=== PATIENT | female | born 1940 ===

== ENCOUNTER 2017-08-04 12:35 | Inpatient (IN) | payer MEDICARE, MEDICAID ==
[2017-08-04 12:47] VITALS: BMI 20.1
[2017-08-04] MEDS ORDERED: Sodium Chloride 0.9% 1,000 ML IV STA ×2 (12:48→14:11)
--- NOTE | 2017-08-04 13:08 | ED PDOC ---
HPI: General Adult Time Seen by Provider: 08/04/17 12:42 Chief Complaint (Nursing): Weakness/Neurological Deficit Chief Complaint (Provider): Weakness History Per: Patient, Family History/Exam Limitations: no limitations Onset/Duration Of Symptoms: Days (3 days) Additional Complaint(s): Pt. son states pt. with weakness for 3 days or more. No chest pain, dyspnea. Decreased appetite. No headaches, dizziness. No dysuria. No fever, congestion , runny nose, cough. No back pain. No neck pain. No numbness, tingles, nausea , vomit, diarrhea. Past Medical History Reviewed: Nursing Documentation, Vital Signs Vital Signs: Last Vital Signs Temp 100.6 F H 08/04/17 13:35 Pulse 155 H 08/04/17 13:46 Resp 18 08/04/17 13:46 BP 151/75 H 08/04/17 13:46 Pulse Ox 100 08/04/17 13:46 - Medical History PMH: Dementia, Diabetes, HTN, Hypercholesterolemia - Surgical History Surgical History: No Surg Hx - Family History Family History: States: Unknown Family Hx - Living Arrangements Living Arrangements: With Family - Social History Alcohol: None Drugs: Denies - Home Medications Home Medications: Ambulatory Orders Medication Instructions Recorded Aspirin [Ecotrin] 81 mg PO DAILY 08/04/17 Carvedilol [Coreg] 3.125 mg PO BID 08/04/17 Rosuvastatin Calcium [Crestor] 20 mg PO DAILY 08/04/17 Valsartan [Diovan] 160 mg PO DAILY 08/04/17 - Allergies Allergies/Adverse Reactions: Allergies Allergy/AdvReac Type Severity Reaction Status Date / Time No Known Allergies Allergy Verified 08/04/17 12:46 Review of Systems ROS Statement: Except As Marked, All Systems Reviewed And Found Negative Neurological: Positive for: Weakness Physical Exam - Reviewed Nursing Documentation Reviewed: Yes Vital Signs Reviewed: Yes - Physical Exam Appears: Positive for: Uncomfortable Head Exam: Positive for: ATRAUMATIC, NORMAL INSPECTION, NORMOCEPHALIC Skin: Positive for: Normal Color, Warm, DRY Eye Exam: Positive for: EOMI, Normal appearance, PERRL ENT: Positive for: Normal ENT Inspection Neck: Positive for: Normal, Painless ROM, Supple Cardiovascular/Chest: Positive for: Tachycardia, Irregularly Irregular Respiratory: Positive for: CNT, Normal Breath Sounds Gastrointestinal/Abdominal: Positive for: Normal Exam, Bowel Sounds, Soft. Negative for: Tenderness Back: Positive for: Normal Inspection. Negative for: L CVA Tenderness, R CVA Tenderness Extremity: Positive for: Normal ROM. Negative for: Tenderness, Pedal Edema Neurologic/Psych: Positive for: Alert, editor producer II-XII, Oriented. Negative for: Motor/Sensory Deficits - Laboratory Results Result Diagrams: 08/04/17 12:55 08/04/17 12:55 Interpretation Of Abn Labs: 44 bun, 0.4090 trop, wbc elevation, ast and alt elevation - ECG ECG: Positive for: Interpreted By Me, Viewed By Me Interpretation Of Abn EKG: EKG 1: afib 163. EKG 2: afib rate controlled 123 O2 Sat by Pulse Oximetry: 97 Pulse Ox Interpretation: Normal - Radiology X-Ray: Read By Radiologist X-Ray Interpretation: No Acute Disease - CT Scan/US ct Other Rad Studies (CT/US): Read By Radiologist Other Rad Interpretation: no acute - Progress ED Course And Treament: 1300: Cardizem 10mg given for afib and rate improved. Will put on a drip. 1450: Spoke with Dr. Beck. Will admit. Wants Dr. Velázquez for cards. Pt. stable. AAOx3. 1455: Spoke with Dr. Velázquez. Agrees with no heparin as INR is 1.7. Will give ASA. Spoke with ICU who will see pt. and admit. - Critical Care Total Time (In Min): 60 Documented Critical Care: Time excludes all time spent performint seperately billable procedures Disposition - Clinical Impression Clinical Impression: Afib, Acute weakness, NSTEMI (non-ST elevated myocardial infarction), Dehydration - Patient ED Disposition Is Patient to be Admitted: Yes Counseled Patient/Family Regarding: Studies Performed, Diagnosis - Disposition Disposition Time: 15:29 Condition: FAIR - Pt Status Changed To: Hospital Disposition Of: Inpatient - Admit Certification Admit to Inpatient:: After my assessment, the patient will require hospitalization for at least two midnights. This is because of the severity of symptoms shown, intensity of services needed, and/or the medical risk in this patient being treated as an outpatient. - POA Present On Arrival: None
[2017-08-04 13:10] LABS: BASO # 0.1 K/uL (0.0-0.2); BASO % 0.4 % (0.0-2.0); HEMOGLOBIN 15.4 g/dL (12.0-16.0); LYMPH # 0.5 K/uL (1.0-4.3); LYMPH % 3.7 % (20.0-40.0); MEAN CELL VOLUME 98.4 fl (81.0-99.0); MEAN CORPUSCULAR HEMOGLOBIN 31.5 pg (27.0-31.0); MEAN PLATELET VOLUME 9.6 fl (7.2-11.7); MONO # 0.4 K/uL (0.0-0.8); MONO % 2.7 % (0.0-10.0); NEUT # 13.4 K/uL (1.8-7.0); NEUT % 93.2 % (50.0-75.0); NRBC % 0.4 % (0.0-0.0); PLATELET COUNT 135 K/uL (130-400); RBC 4.89 Mil/uL (3.80-5.20); RED CELL DISTRIBUTION WIDTH 15.3 % (11.5-14.5); WHITE BLOOD COUNT 14.3 K/uL (4.8-10.8)
[2017-08-04] MEDS ORDERED: DILTIAZEM IV ONE (13:15)
[2017-08-04 13:19] LABS: ALB/GLOB RATIO 1.2 (1.0-2.1); ALBUMIN 3.6 g/dL (3.5-5.0); ALT/SGPT 238 U/L (9-52); AST/SGOT 128 U/L (14-36); BLOOD UREA NITROGEN 44 mg/dl (7-17); GFR AFRICAN-AMERICAN > 60; GFR NON-AFRICAN AMERICAN > 60
--- NOTE | 2017-08-04 13:42 | RAD ---
HISTORY: weak COMPARISON: Comparison chest 02/20/2017 FINDINGS: LUNGS: Suspect minor bibasilar atelectasis PLEURA: No significant pleural effusion identified, no pneumothorax apparent. CARDIOVASCULAR: Heart appears mildly enlarged. Aorta ectatic and uncoiled. OSSEOUS STRUCTURES: Moderate dextroscoliosis apex at the mid-lower thoracic region. VISUALIZED UPPER ABDOMEN: Normal. OTHER FINDINGS: None. IMPRESSION: Suspect minor bibasilar atelectasis.
[2017-08-04 13:47] LABS: ANISOCYTOSIS SLIGHT; LYMPHOCYTE 8 % (20-50); NEUTROPHIL 92 % (42-75); PLATELET ESTIMATE NORMAL (NORMAL); TOTAL CELLS COUNTED 100
[2017-08-04 13:48] LABS: HYPOCHROMIC SLIGHT; POIKILOCYTOSIS SLIGHT; STOMATOCYTES SLIGHT; TARGET CELLS SLIGHT
[2017-08-04 13:49] LABS: OVALOCYTES SLIGHT; TEARDROP CELLS SLIGHT
--- NOTE | 2017-08-04 14:10 | CT ---
PROCEDURE: CT scan of the brain dated 08/04/2017 HISTORY: Headache COMPARISON: Comparison made with prior CT scan brain dated 06/01/2014. TECHNIQUE: Axial computed tomography images were obtained through the head/brain without intravenous contrast. Radiation dose: Total exam DLP = 89.65 mGy-cm. This CT exam was performed using one or more of the following dose reduction techniques: Automated exposure control, adjustment of the mA and/or kV according to patient size, and/or use of iterative reconstruction technique. FINDINGS: HEMORRHAGE: No intracranial hemorrhage. BRAIN: Moderate diffuse/confluent chronic periventricular white matter ischemic changes seen extending peripherally into the deep and subcortical white matter both cerebral hemispheres. There is also some extension these changes into the white matter tracts of both basal nuclei. , additionally, there are also more discrete scattered bilateral chronic appearing basal nuclei and possibly brainstem lacunar type infarcts. Probable dilated perivascular space right inferior basal ganglia Moderate generalized volume loss Mild vascular calcifications are present. VENTRICLES: No obstructive hydrocephalus. CALVARIUM: Unremarkable. PARANASAL SINUSES: Frontal sinus is mildly underpneumatized/mildly hypoplastic unchanged. The remaining visualized paranasal sinuses well-developed and currently well-aerated. No fluid levels seen to suggest acute sinusitis. . Minimal mucosal thickening seen within the sphenoid sinus. MASTOID AIR CELLS: Unremarkable as visualized. No inflammatory changes. OTHER FINDINGS: Changes of bilateral cataract surgery again noted. IMPRESSION: No acute intracranial hemorrhage. Chronic white matter and basal nuclei ischemic changes. Moderate generalized volume loss.
[2017-08-04] MEDS ORDERED: Sod Polystyrene Sulf 15 gm/60 ml Susp PO STA (14:13)
[2017-08-04 14:27] LABS: INR 1.7 (0.9-1.2); PARTIAL THROMBOPLASTIN TIME 37.5 Seconds (25.6-37.1); PROTHROMBIN TIME 18.5 Seconds (9.8-13.1)
--- NOTE | 2017-08-04 15:50 | CP.PCM.CON ---
History of Present Illness - History of Present Illness History of Present Illness: Pt was seen in ER with son gave all the history, pt has h/o dementia and does not speak [place]. She was brought to ER as patient who has been quite active and ambulatory otherwise has been feeling weak and home bounds for last two days. No other complain, she had no fever, SOB, pain, vomiting . In ER she found to be in rapid afib and started on Cardizem drip. Her TNI was slightly high . Dr Santacruz, pilot fuel engineer was consulted and he agreed with cardizem drip but to hold on anticoagulation. Review of Systems - Review of Systems Systems not reviewed;Unavailable: Dementia - Constitutional Constitutional: Anorexia, Weakness - EENT Eyes: As Per HPI Ears: As Per HPI - Breasts Breasts: As Per HPI - Cardiovascular Cardiovascular: As Per HPI - Respiratory Respiratory: As Per HPI - Gastrointestinal Gastrointestinal: As Per HPI Past Patient History - Past Medical History & Family History Past Medical History?: Yes - Past Social History Smoking Status: Never Smoked Chewing Tobacco Use: No Cigar Use: No Alcohol: None Drugs: Denies - CARDIAC Hx Hypercholesterolemia: Yes Hx Hypertension: Yes - NEUROLOGICAL Hx Dementia: Yes - PSYCHIATRIC Hx Substance Use: No - SURGICAL HISTORY Hx Surgeries: No - ANESTHESIA Hx Anesthesia: No Meds Allergies/Adverse Reactions: Allergies Allergy/AdvReac Type Severity Reaction Status Date / Time No Known Allergies Allergy Verified 08/04/17 12:46 - Medications Medications: Current Medications Diltiazem HCl 100 mg/ Sodium (Chloride) 100 mls @ 5 mls/hr IV .Q20H ONE; 5 MG/ HR PRN Reason: Protocol Stop: 08/05/17 09:59 Last Admin: 08/04/17 13:46 Dose: 5 mg/hr, 5 mls/hr Physical Exam - Head Exam Head Exam: ATRAUMATIC - Eye Exam Pupil Exam: PERRL - ENT Exam ENT Exam: Normal Exam - Neck Exam Neck exam: Positive for: Full Rom - Respiratory Exam Respiratory Exam: NORMAL BREATHING PATTERN - Cardiovascular Exam Cardiovascular Exam: Irregular Rhythm - GI/Abdominal Exam GI & Abdominal Exam: Soft Results - Vital Signs Recent Vital Signs: Last Vital Signs Temp 97.5 F L 08/04/17 14:21 Pulse 121 H 08/04/17 14:21 Resp 18 08/04/17 13:46 BP 151/75 H 08/04/17 13:46 Pulse Ox 97 08/04/17 15:30 - Labs Result Diagrams: 08/04/17 12:55 08/04/17 12:55 Labs: Laboratory Results - last 24 hr 08/04/17 08/04/17 08/04/17 12:53 12:55 12:55 WBC 14.3 H RBC 4.89 Hgb 15.4 Hct 48.1 H MCV 98.4 MCH 31.5 H MCHC 32.0 L RDW 15.3 H Plt Count 135 MPV 9.6 Neut % (Auto) 93.2 H Lymph % (Auto) 3.7 L [place] % (Auto) 2.7 Eos % (Auto) 0.0 Baso % (Auto) 0.4 Neut # (Auto) 13.4 H Lymph # (Auto) 0.5 L [place] # (Auto) 0.4 Eos # (Auto) 0.0 Baso # (Auto) 0.1 Neutrophils % (Manual) 92 H Lymphocytes % (Manual) 8 L Monocytes % (Manual) TEST NOT PERFORMED Platelet Estimate Normal Hypochromasia (manual) Slight Poikilocytosis (manual Slight Anisocytosis (manual) Slight Target Cells Slight Tear Drop Cells Slight Ovalocytes Slight Stomatocytes Slight PT INR APTT Sodium 133 Potassium 5.4 H Chloride 93 L Carbon Dioxide 22 Anion Gap 23 H BUN 44 H Creatinine 0.7 Est GFR ( Amer) > 60 Est GFR (Non-Af Amer) > 60 POC Glucose (mg/dL) 142 H Random Glucose 148 H Calcium 9.0 Total Bilirubin 3.1 H AST 128 H ALT 238 H Alkaline Phosphatase 232 H Troponin I 0.4090 H* Total Protein 6.6 Albumin 3.6 Globulin 3.0 Albumin/Globulin Ratio 1.2 08/04/17 12:55 WBC RBC Hgb Hct MCV MCH MCHC RDW Plt Count MPV Neut % (Auto) Lymph % (Auto) [place] % (Auto) Eos % (Auto) Baso % (Auto) Neut # (Auto) Lymph # (Auto) [place] # (Auto) Eos # (Auto) Baso # (Auto) Neutrophils % (Manual) Lymphocytes % (Manual) Monocytes % (Manual) Platelet Estimate Hypochromasia (manual) Poikilocytosis (manual Anisocytosis (manual) Target Cells Tear Drop Cells Ovalocytes Stomatocytes PT 18.5 H INR 1.7 H APTT 37.5 H Sodium Potassium Chloride Carbon Dioxide Anion Gap BUN Creatinine Est GFR ( Amer) Est GFR (Non-Af Amer) POC Glucose (mg/dL) Random Glucose Calcium Total Bilirubin AST ALT Alkaline Phosphatase Troponin I Total Protein Albumin Globulin Albumin/Globulin Ratio Assessment & Plan - Assessment and Plan (Free Text) Assessment: ACS: NSTEMI Rapid A fib Dehydration BRUNO; pre-renal Dementia h/o HTN Plan: Admit to ICU Cardizem infusion start at 5 mg /h SCDs IVF NS at 75 cc/h serial card enzymes ASA 325 mg daily Card consult 2 Gm Na diet
--- NOTE | 2017-08-04 16:18 | US ---
HISTORY: elevated bili COMPARISON: None. TECHNIQUE: Sonographic evaluation of the right upper quadrant of the abdomen. FINDINGS: LIVER: Liver exhibits normal size measuring 15.6 cm in CC dimension. Liver demonstrates smooth contour and normal echotexture. No obvious hepatic masses or collections seen on this images presented. Mild central intrahepatic biliary ductal dilatation. GALLBLADDER: Cholecystectomy COMMON BILE DUCT: Common bile duct dilated at 1.1 mm. No stones. No dilatation. PANCREAS: Unremarkable as visualized. No mass. No ductal dilatation. RIGHT KIDNEY: Measures 12.0 x 4.4 x 4.4 cm in length. Normal echogenicity. No calculus, solid mass, or hydronephrosis. . There is an upper pole cyst measuring 4.5 x 4.2 x 5.3 cm. AORTA: No aneurysmal dilatation. IVC: Unremarkable. OTHER FINDINGS: None . IMPRESSION: Cholecystectomy with dilatation of the common bile duct as above. Large upper pole cyst right kidney.
[2017-08-04] MEDS: Sodium Chloride 0.9% 1,000 ML IV SCH (17:00)
--- NOTE | 2017-08-04 22:49 | CP.PCM.HP ---
History of Present Illness - History of Present Illness History of Present Illness: This is a 77 y/o female with hx of dementia HTN and hyperlipidemia was admitted for progressive body weakness and noted to have rapid atrial fibrillation. She was also noted to have elevated troponin. There was no chest pain or SOB. She has been on medications for HTN and hyperlipidemia and dementia and stays mostly at home. She is very high risk for fall due to her dementia. Present on Admission - Present on Admission Any Indicators Present on Admission: No History of DVT/PE: No History of Uncontrolled Diabetes: No Urinary Catheter: No Decubitus Ulcer Present: No Past Patient History - Past Medical History & Family History Past Medical History?: Yes - Past Social History Smoking Status: Never Smoked - CARDIAC Hx Cardiac Disorders: Yes Hx Hypercholesterolemia: Yes Hx Hypertension: Yes - PULMONARY Hx Respiratory Disorders: No - NEUROLOGICAL Hx Neurological Disorder: Yes Hx Dementia: Yes - HEENT Hx HEENT Problems: No - RENAL Hx Chronic Kidney Disease: No - ENDOCRINE/METABOLIC Hx Endocrine Disorders: Yes Hx Diabetes Mellitus Type 2: Yes - HEMATOLOGICAL/ONCOLOGICAL Hx Blood Disorders: Yes Hx Blood Transfusions: Yes (childhood) - INTEGUMENTARY Hx Dermatological Problems: No - MUSCULOSKELETAL/RHEUMATOLOGICAL Hx Musculoskeletal Disorders: Yes Hx Falls: Yes - GASTROINTESTINAL Hx Gastrointestinal Disorders: No - GENITOURINARY/GYNECOLOGICAL Hx Genitourinary Disorders: No - PSYCHIATRIC Hx Psychophysiologic Disorder: No Hx Substance Use: No - SURGICAL HISTORY Hx Surgeries: Yes Other/Comment: childhoood surgery/pt cannot remember - ANESTHESIA Hx Anesthesia: Yes Hx Anesthesia Reactions: No Meds Allergies/Adverse Reactions: Allergies Allergy/AdvReac Type Severity Reaction Status Date / Time No Known Allergies Allergy Verified 08/04/17 12:46 Physical Exam - Head Exam Head Exam: NORMAL INSPECTION - Eye Exam Eye Exam: Normal appearance - ENT Exam ENT Exam: Mucous Membranes Moist - Respiratory Exam Respiratory Exam: Clear to Auscultation Bilateral - Cardiovascular Exam Cardiovascular Exam: Irregular Rhythm - GI/Abdominal Exam GI & Abdominal Exam: Normal Bowel Sounds - Neurological Exam Neurological exam: Altered, CN II-XII Intact - Psychiatric Exam Psychiatric exam: Anxious Results - Vital Signs Recent Vital Signs: Last Vital Signs Temp 97.2 F L 08/04/17 20:00 Pulse 111 H 08/04/17 21:00 Resp 18 08/04/17 21:00 BP 122/62 08/04/17 21:00 Pulse Ox 98 08/04/17 21:00 - Labs Result Diagrams: 08/05/17 08:37 08/05/17 08:37 Labs: Laboratory Results - last 24 hr 08/04/17 08/04/17 08/04/17 12:53 12:55 12:55 WBC 14.3 H RBC 4.89 Hgb 15.4 Hct 48.1 H MCV 98.4 MCH 31.5 H MCHC 32.0 L RDW 15.3 H Plt Count 135 MPV 9.6 Neut % (Auto) 93.2 H Lymph % (Auto) 3.7 L [place] % (Auto) 2.7 Eos % (Auto) 0.0 Baso % (Auto) 0.4 Neut # (Auto) 13.4 H Lymph # (Auto) 0.5 L [place] # (Auto) 0.4 Eos # (Auto) 0.0 Baso # (Auto) 0.1 Neutrophils % (Manual) 92 H Lymphocytes % (Manual) 8 L Monocytes % (Manual) TEST NOT PERFORMED Platelet Estimate Normal Hypochromasia (manual) Slight Poikilocytosis (manual Slight Anisocytosis (manual) Slight Target Cells Slight Tear Drop Cells Slight Ovalocytes Slight Stomatocytes Slight PT INR APTT Sodium 133 Potassium 5.4 H Chloride 93 L Carbon Dioxide 22 Anion Gap 23 H BUN 44 H Creatinine 0.7 Est GFR ( Amer) > 60 Est GFR (Non-Af Amer) > 60 POC Glucose (mg/dL) 142 H Random Glucose 148 H Calcium 9.0 Total Bilirubin 3.1 H AST 128 H ALT 238 H Alkaline Phosphatase 232 H Troponin I 0.4090 H* Total Protein 6.6 Albumin 3.6 Globulin 3.0 Albumin/Globulin Ratio 1.2 08/04/17 08/04/17 08/04/17 12:55 17:04 21:06 WBC RBC Hgb Hct MCV MCH MCHC RDW Plt Count MPV Neut % (Auto) Lymph % (Auto) [place] % (Auto) Eos % (Auto) Baso % (Auto) Neut # (Auto) Lymph # (Auto) [place] # (Auto) Eos # (Auto) Baso # (Auto) Neutrophils % (Manual) Lymphocytes % (Manual) Monocytes % (Manual) Platelet Estimate Hypochromasia (manual) Poikilocytosis (manual Anisocytosis (manual) Target Cells Tear Drop Cells Ovalocytes Stomatocytes PT 18.5 H INR 1.7 H APTT 37.5 H Sodium Potassium Chloride Carbon Dioxide Anion Gap BUN Creatinine Est GFR ( Amer) Est GFR (Non-Af Amer) POC Glucose (mg/dL) 198 H Random Glucose Calcium Total Bilirubin AST ALT Alkaline Phosphatase Troponin I 0.2720 H* Total Protein Albumin Globulin Albumin/Globulin Ratio 08/04/17 21:09 WBC RBC Hgb Hct MCV MCH MCHC RDW Plt Count MPV Neut % (Auto) Lymph % (Auto) [place] % (Auto) Eos % (Auto) Baso % (Auto) Neut # (Auto) Lymph # (Auto) [place] # (Auto) Eos # (Auto) Baso # (Auto) Neutrophils % (Manual) Lymphocytes % (Manual) Monocytes % (Manual) Platelet Estimate Hypochromasia (manual) Poikilocytosis (manual Anisocytosis (manual) Target Cells Tear Drop Cells Ovalocytes Stomatocytes PT INR APTT Sodium Potassium Chloride Carbon Dioxide Anion Gap BUN Creatinine Est GFR ( Amer) Est GFR (Non-Af Amer) POC Glucose (mg/dL) 147 H Random Glucose Calcium Total Bilirubin AST ALT Alkaline Phosphatase Troponin I Total Protein Albumin Globulin Albumin/Globulin Ratio Assessment & Plan (1) Atrial fibrillation with rapid ventricular response Status: Acute (2) NSTEMI (non-ST elevated myocardial infarction) Status: Acute (3) Dementia Status: Acute (4) Hyperglycemia Status: Acute (5) Abnormal liver enzymes Status: Acute - Assessment and Plan (Free Text) Plan: Monitor labs check US of the liver gb check CA 19 9 afp A1c cont meds follow up with cardiology troponin
[2017-08-04] MEDS: Insulin Regular 100 units/ml SC SCH (22:53)
[2017-08-05] MEDS: Sodium Chloride 0.9% 1,000 ML IV SCH ×2 (05:55→21:00)
[2017-08-05] MEDS: Insulin Regular 100 units/ml SC SCH ×4 (06:30→22:03)
[2017-08-05 08:51] LABS: BLOOD UREA NITROGEN 27 mg/dl (7-17); CALCIUM 8.1 mg/dL (8.4-10.2); GFR AFRICAN-AMERICAN > 60; GFR NON-AFRICAN AMERICAN > 60
[2017-08-05 08:53] LABS: HEMOGLOBIN 13.7 g/dL (12.0-16.0); MEAN CELL VOLUME 98.7 fl (81.0-99.0); MEAN CORPUSCULAR HEMOGLOBIN 31.2 pg (27.0-31.0); MEAN CORPUSCULAR HGB CONC 31.6 g/dL (33.0-37.0); RBC 4.4 Mil/uL (3.80-5.20); RED CELL DISTRIBUTION WIDTH 15.3 % (11.5-14.5)
--- NOTE | 2017-08-05 09:08 | CP.CCUPN ---
CCU Subjective - Physician Review Events Since Last Encounter (Free Text): 08/05/17 16:16 The patient was Seen/interviewed and examined by me at the bedside during ICU round, Medical records reviewed and Management issues were discussed and formulated with the house staff. Events reviewed 77 Years old Female with PMHx of Diabetes, HTN, Hypercholesterolemia and dementia She was brought to ER as patient who has been quite active and ambulatory otherwise has been feeling weak and home bounds for last two days. In ER she found to be in rapid A-Fib and started on Cardizem drip. Also Trop was slightly elevated, cardiology was consulted and he agreed with cardizem drip but to hold on anticoagulation. This morning she feels well and is hemodynamically stable, denies any chest pain or SOB. Clinically improving Awake, follows commands This morning labs revealed improved renal function BUN/Cr down 27/0.4 CCU Objective - Vital Signs / Intake & Output Vital Signs (Last 4 hours): Vital Signs Temp Pulse Resp BP Pulse Ox 08/05/17 08:00 97.3 F L 99 H 17 119/75 97 08/05/17 06:00 89 12 116/77 98 Intake and Output (Last 8hrs): Intake & Output 08/04/17 08/05/17 08/05/17 22:59 06:59 14:59 Intake Total 495 860 Output Total 450 Balance 495 410 Weight 100 lb Intake: IV 425 760 Intake, Piggyback 20 Oral 50 100 Output: Stool 250 Urine/Stool Mix 200 Other: # Voids Urine, Voided 1 2 25 # Bowel Movements 1 1 - Physical Exam Physical Exam Limitations: Positive for: Altered Mental Status, Clinical Condition Head: Positive for: Atraumatic, Normocephalic. Negative for: Tenderness, Contusion, Swelling, Ecchymosis, Abrasion, Laceration, Other Pupils: Positive for: PERRL Extroacular Muscles: Positive for: EOMI Conjunctiva: Positive for: Normal. Negative for: Injected, Icteric, Other Pharnyx: Positive for: Normal Nose (External): Positive for: Atraumatic Nose (Internal): Positive for: Normal Inspection Neck: Positive for: Normal Range of Motion, Trachea Midline. Negative for: Meningeal Signs, MIDLINE TENDERNESS, Paraspinal Tenderness, JVD, Lymphadenopathy , Bruit, Other Respiratory/Chest: Positive for: Clear to Auscultation, Good Air Exchange. Negative for: Respiratory Distress, Accessory Muscle Use, Wheezes, Decreased Breath Sounds Cardiovascular: Positive for: Regular Rate and Rhythm, Normal S1, S2, Peripheal Pulses Present. Negative for: Murmurs, Irregular Rhythm, Tachycardic, Bradycardic Abdomen: Positive for: Normal Bowel Sounds. Negative for: Tenderness, Distention Back: Positive for: Normal Inspection. Negative for: CVA Tenderness Upper Extremity: Positive for: Normal Inspection. Negative for: Cyanosis, Edema Lower Extremity: Positive for: Normal Inspection. Negative for: Edema, CALF TENDERNESS - Medications Active Medications: Active Medications Generic Name Dose Route Start Last Admin Trade Name Freq PRN Reason Stop Dose Admin Aspirin 325 mg 08/05/17 09:00 Aspirin PO DAILY [facility] Atorvastatin Calcium 20 mg 08/05/17 09:00 Lipitor PO DAILY [facility] Carvedilol 12.5 mg 08/04/17 21:00 08/04/17 20:48 Coreg PO 12.5 mg Q12 [facility] Administration Diltiazem HCl 100 mg/ Sodium 100 mls @ 5 mls/hr 08/04/17 14:00 08/05/17 01:54 Chloride IV 08/05/17 09:59 7.5 mg/hr .Q20H ONE 7.5 mls/hr Protocol Administration 5 MG/HR Sodium Chloride 1,000 mls @ 75 mls/hr 08/04/17 17:15 08/05/17 05:55 Sodium Chloride 0.9% IV 08/05/17 17:06 75 mls/hr .[id number] [facility] Administration Insulin Human Regular 0 units 08/04/17 22:00 08/05/17 06:30 Humulin R SC Not Given ACHS [facility] Protocol - Patient Studies Lab Studies: Lab Studies 08/05/17 08/05/17 08/05/17 Range/Units 08:37 08:37 05:55 WBC (4.8-10.8) K/uL RBC 4.40 (3.80-5.20) Mil/uL Hgb 13.7 (12.0-16.0) g/dL Hct 43.4 (34.0-47.0) % MCV 98.7 (81.0-99.0) fl MCH 31.2 H (27.0-31.0) pg MCHC 31.6 L (33.0-37.0) g/dL RDW 15.3 H (11.5-14.5) % Plt Count 91 L D (130-400) K/uL MPV (7.2-11.7) fl Neut % (Auto) (50.0-75.0) % Lymph % (Auto) (20.0-40.0) % [place] % (Auto) (0.0-10.0) % Eos % (Auto) (0.0-4.0) % Baso % (Auto) (0.0-2.0) % Neut # (Auto) (1.8-7.0) K/uL Lymph # (Auto) (1.0-4.3) K/uL [place] # (Auto) (0.0-0.8) K/uL Eos # (Auto) (0.0-0.7) K/uL Baso # (Auto) (0.0-0.2) K/uL Neutrophils % (Manual) (42-75) % Lymphocytes % (Manual) (20-50) % Monocytes % (Manual) Platelet Estimate (NORMAL) Hypochromasia (manual) Poikilocytosis (manual Anisocytosis (manual) Target Cells Tear Drop Cells Ovalocytes Stomatocytes PT (9.8-13.1) Seconds INR (0.9-1.2) APTT (25.6-37.1) Seconds Sodium 134 (132-148) mmol/l Potassium 3.8 (3.6-5.0) MMOL/L Chloride 101 (98-107) mmol/L Carbon Dioxide 21 L (22-30) mmol/L Anion Gap 16 (10-20) BUN 27 H (7-17) mg/dl Creatinine 0.4 L (0.7-1.2) mg/dl Est GFR ( Amer) > 60 Est GFR (Non-Af Amer) > 60 POC Glucose (mg/dL) 131 H (65-110) mg/dL Random Glucose 130 H (65-105) mg/dL Calcium 8.1 L (8.4-10.2) mg/dL Total Bilirubin (0.2-1.3) mg/dl AST (14-36) U/L ALT (9-52) U/L Alkaline Phosphatase (38-126) U/L Troponin I (0.00-0.120) ng/mL Total Protein (6.3-8.2) G/DL Albumin (3.5-5.0) g/dL Globulin (2.2-3.9) gm/dL Albumin/Globulin Ratio (1.0-2.1) 08/05/17 08/04/17 08/04/17 Range/Units 04:25 21:09 21:06 WBC (4.8-10.8) K/uL RBC (3.80-5.20) Mil/uL Hgb (12.0-16.0) g/dL Hct (34.0-47.0) % MCV (81.0-99.0) fl MCH (27.0-31.0) pg MCHC (33.0-37.0) g/dL RDW (11.5-14.5) % Plt Count (130-400) K/uL MPV (7.2-11.7) fl Neut % (Auto) (50.0-75.0) % Lymph % (Auto) (20.0-40.0) % [place] % (Auto) (0.0-10.0) % Eos % (Auto) (0.0-4.0) % Baso % (Auto) (0.0-2.0) % Neut # (Auto) (1.8-7.0) K/uL Lymph # (Auto) (1.0-4.3) K/uL [place] # (Auto) (0.0-0.8) K/uL Eos # (Auto) (0.0-0.7) K/uL Baso # (Auto) (0.0-0.2) K/uL Neutrophils % (Manual) (42-75) % Lymphocytes % (Manual) (20-50) % Monocytes % (Manual) Platelet Estimate (NORMAL) Hypochromasia (manual) Poikilocytosis (manual Anisocytosis (manual) Target Cells Tear Drop Cells Ovalocytes Stomatocytes PT (9.8-13.1) Seconds INR (0.9-1.2) APTT (25.6-37.1) Seconds Sodium (132-148) mmol/l Potassium (3.6-5.0) MMOL/L Chloride (98-107) mmol/L Carbon Dioxide (22-30) mmol/L Anion Gap (10-20) BUN (7-17) mg/dl Creatinine (0.7-1.2) mg/dl Est GFR ( Amer) Est GFR (Non-Af Amer) POC Glucose (mg/dL) 147 H (65-110) mg/dL Random Glucose (65-105) mg/dL Calcium (8.4-10.2) mg/dL Total Bilirubin (0.2-1.3) mg/dl AST (14-36) U/L ALT (9-52) U/L Alkaline Phosphatase (38-126) U/L Troponin I 0.2410 H* 0.2720 H* (0.00-0.120) ng/mL Total Protein (6.3-8.2) G/DL Albumin (3.5-5.0) g/dL Globulin (2.2-3.9) gm/dL Albumin/Globulin Ratio (1.0-2.1) 08/04/17 08/04/17 08/04/17 Range/Units 17:04 12:55 12:55 WBC (4.8-10.8) K/uL RBC (3.80-5.20) Mil/uL Hgb (12.0-16.0) g/dL Hct (34.0-47.0) % MCV (81.0-99.0) fl MCH (27.0-31.0) pg MCHC (33.0-37.0) g/dL RDW (11.5-14.5) % Plt Count (130-400) K/uL MPV (7.2-11.7) fl Neut % (Auto) (50.0-75.0) % Lymph % (Auto) (20.0-40.0) % [place] % (Auto) (0.0-10.0) % Eos % (Auto) (0.0-4.0) % Baso % (Auto) (0.0-2.0) % Neut # (Auto) (1.8-7.0) K/uL Lymph # (Auto) (1.0-4.3) K/uL [place] # (Auto) (0.0-0.8) K/uL Eos # (Auto) (0.0-0.7) K/uL Baso # (Auto) (0.0-0.2) K/uL Neutrophils % (Manual) (42-75) % Lymphocytes % (Manual) (20-50) % Monocytes % (Manual) Platelet Estimate (NORMAL) Hypochromasia (manual) Poikilocytosis (manual Anisocytosis (manual) Target Cells Tear Drop Cells Ovalocytes Stomatocytes PT 18.5 H (9.8-13.1) Seconds INR 1.7 H (0.9-1.2) APTT 37.5 H (25.6-37.1) Seconds Sodium 133 (132-148) mmol/l Potassium 5.4 H (3.6-5.0) MMOL/L Chloride 93 L (98-107) mmol/L Carbon Dioxide 22 (22-30) mmol/L Anion Gap 23 H (10-20) BUN 44 H (7-17) mg/dl Creatinine 0.7 (0.7-1.2) mg/dl Est GFR ( Amer) > 60 Est GFR (Non-Af Amer) > 60 POC Glucose (mg/dL) 198 H (65-110) mg/dL Random Glucose 148 H (65-105) mg/dL Calcium 9.0 (8.4-10.2) mg/dL Total Bilirubin 3.1 H (0.2-1.3) mg/dl AST 128 H (14-36) U/L ALT 238 H (9-52) U/L Alkaline Phosphatase 232 H (38-126) U/L Troponin I 0.4090 H* (0.00-0.120) ng/mL Total Protein 6.6 (6.3-8.2) G/DL Albumin 3.6 (3.5-5.0) g/dL Globulin 3.0 (2.2-3.9) gm/dL Albumin/Globulin Ratio 1.2 (1.0-2.1) 08/04/17 08/04/17 Range/Units 12:55 12:53 WBC 14.3 H (4.8-10.8) K/uL RBC 4.89 (3.80-5.20) Mil/uL Hgb 15.4 (12.0-16.0) g/dL Hct 48.1 H (34.0-47.0) % MCV 98.4 (81.0-99.0) fl MCH 31.5 H (27.0-31.0) pg MCHC 32.0 L (33.0-37.0) g/dL RDW 15.3 H (11.5-14.5) % Plt Count 135 (130-400) K/uL MPV 9.6 (7.2-11.7) fl Neut % (Auto) 93.2 H (50.0-75.0) % Lymph % (Auto) 3.7 L (20.0-40.0) % [place] % (Auto) 2.7 (0.0-10.0) % Eos % (Auto) 0.0 (0.0-4.0) % Baso % (Auto) 0.4 (0.0-2.0) % Neut # (Auto) 13.4 H (1.8-7.0) K/uL Lymph # (Auto) 0.5 L (1.0-4.3) K/uL [place] # (Auto) 0.4 (0.0-0.8) K/uL Eos # (Auto) 0.0 (0.0-0.7) K/uL Baso # (Auto) 0.1 (0.0-0.2) K/uL Neutrophils % (Manual) 92 H (42-75) % Lymphocytes % (Manual) 8 L (20-50) % Monocytes % (Manual) TEST NOT PERFORMED Platelet Estimate Normal (NORMAL) Hypochromasia (manual) Slight Poikilocytosis (manual Slight Anisocytosis (manual) Slight Target Cells Slight Tear Drop Cells Slight Ovalocytes Slight Stomatocytes Slight PT (9.8-13.1) Seconds INR (0.9-1.2) APTT (25.6-37.1) Seconds Sodium (132-148) mmol/l Potassium (3.6-5.0) MMOL/L Chloride (98-107) mmol/L Carbon Dioxide (22-30) mmol/L Anion Gap (10-20) BUN (7-17) mg/dl Creatinine (0.7-1.2) mg/dl Est GFR ( Amer) Est GFR (Non-Af Amer) POC Glucose (mg/dL) 142 H (65-110) mg/dL Random Glucose (65-105) mg/dL Calcium (8.4-10.2) mg/dL Total Bilirubin (0.2-1.3) mg/dl AST (14-36) U/L ALT (9-52) U/L Alkaline Phosphatase (38-126) U/L Troponin I (0.00-0.120) ng/mL Total Protein (6.3-8.2) G/DL Albumin (3.5-5.0) g/dL Globulin (2.2-3.9) gm/dL Albumin/Globulin Ratio (1.0-2.1) Laboratory Results - last 24 hr 08/04/17 08/04/17 08/04/17 12:53 12:55 12:55 WBC 14.3 H RBC 4.89 Hgb 15.4 Hct 48.1 H MCV 98.4 MCH 31.5 H MCHC 32.0 L RDW 15.3 H Plt Count 135 MPV 9.6 Neut % (Auto) 93.2 H Lymph % (Auto) 3.7 L [place] % (Auto) 2.7 Eos % (Auto) 0.0 Baso % (Auto) 0.4 Neut # (Auto) 13.4 H Lymph # (Auto) 0.5 L [place] # (Auto) 0.4 Eos # (Auto) 0.0 Baso # (Auto) 0.1 Neutrophils % (Manual) 92 H Lymphocytes % (Manual) 8 L Monocytes % (Manual) TEST NOT PERFORMED Platelet Estimate Normal Hypochromasia (manual) Slight Poikilocytosis (manual Slight Anisocytosis (manual) Slight Target Cells Slight Tear Drop Cells Slight Ovalocytes Slight Stomatocytes Slight PT INR APTT Sodium 133 Potassium 5.4 H Chloride 93 L Carbon Dioxide 22 Anion Gap 23 H BUN 44 H Creatinine 0.7 Est GFR ( Amer) > 60 Est GFR (Non-Af Amer) > 60 POC Glucose (mg/dL) 142 H Random Glucose 148 H Calcium 9.0 Total Bilirubin 3.1 H AST 128 H ALT 238 H Alkaline Phosphatase 232 H Troponin I 0.4090 H* Total Protein 6.6 Albumin 3.6 Globulin 3.0 Albumin/Globulin Ratio 1.2 08/04/17 08/04/17 08/04/17 12:55 17:04 21:06 WBC RBC Hgb Hct MCV MCH MCHC RDW Plt Count MPV Neut % (Auto) Lymph % (Auto) [place] % (Auto) Eos % (Auto) Baso % (Auto) Neut # (Auto) Lymph # (Auto) [place] # (Auto) Eos # (Auto) Baso # (Auto) Neutrophils % (Manual) Lymphocytes % (Manual) Monocytes % (Manual) Platelet Estimate Hypochromasia (manual) Poikilocytosis (manual Anisocytosis (manual) Target Cells Tear Drop Cells Ovalocytes Stomatocytes PT 18.5 H INR 1.7 H APTT 37.5 H Sodium Potassium Chloride Carbon Dioxide Anion Gap BUN Creatinine Est GFR ( Amer) Est GFR (Non-Af Amer) POC Glucose (mg/dL) 198 H Random Glucose Calcium Total Bilirubin AST ALT Alkaline Phosphatase Troponin I 0.2720 H* Total Protein Albumin Globulin Albumin/Globulin Ratio 08/04/17 08/05/17 08/05/17 21:09 04:25 05:55 WBC RBC Hgb Hct MCV MCH MCHC RDW Plt Count MPV Neut % (Auto) Lymph % (Auto) [place] % (Auto) Eos % (Auto) Baso % (Auto) Neut # (Auto) Lymph # (Auto) [place] # (Auto) Eos # (Auto) Baso # (Auto) Neutrophils % (Manual) Lymphocytes % (Manual) Monocytes % (Manual) Platelet Estimate Hypochromasia (manual) Poikilocytosis (manual Anisocytosis (manual) Target Cells Tear Drop Cells Ovalocytes Stomatocytes PT INR APTT Sodium Potassium Chloride Carbon Dioxide Anion Gap BUN Creatinine Est GFR ( Amer) Est GFR (Non-Af Amer) POC Glucose (mg/dL) 147 H 131 H Random Glucose Calcium Total Bilirubin AST ALT Alkaline Phosphatase Troponin I 0.2410 H* Total Protein Albumin Globulin Albumin/Globulin Ratio 08/05/17 08/05/17 08:37 08:37 WBC RBC 4.40 Hgb 13.7 Hct 43.4 MCV 98.7 MCH 31.2 H MCHC 31.6 L RDW 15.3 H Plt Count 91 L D MPV Neut % (Auto) Lymph % (Auto) [place] % (Auto) Eos % (Auto) Baso % (Auto) Neut # (Auto) Lymph # (Auto) [place] # (Auto) Eos # (Auto) Baso # (Auto) Neutrophils % (Manual) Lymphocytes % (Manual) Monocytes % (Manual) Platelet Estimate Hypochromasia (manual) Poikilocytosis (manual Anisocytosis (manual) Target Cells Tear Drop Cells Ovalocytes Stomatocytes PT INR APTT Sodium 134 Potassium 3.8 Chloride 101 Carbon Dioxide 21 L Anion Gap 16 BUN 27 H Creatinine 0.4 L Est GFR ( Amer) > 60 Est GFR (Non-Af Amer) > 60 POC Glucose (mg/dL) Random Glucose 130 H Calcium 8.1 L Total Bilirubin AST ALT Alkaline Phosphatase Troponin I Total Protein Albumin Globulin Albumin/Globulin Ratio EKG/Cardiology Studies: Cardiology / EKG Studies 08/04/17 12:47 ELECTROCARDIOGRAM Stat Comment: Mode Of Transportation: Reason For Exam: needed 08/04/17 13:05 ELECTROCARDIOGRAM Stat Comment: Mode Of Transportation: Reason For Exam: needed Fingerstick Blood Sugar Results: 131 Review of Systems - Cardiovascular Cardiovascular: absent: As Per HPI, Acrocyanosis, Chest Pain, Chest Pain at Rest , Chest Pain with Activity, Claudication, Diaphoresis, Dyspnea, Dyspnea on Exertion, Edema, Irregular Heart Rhythm, Pain Radiating to Arm/Neck/Jaw, Leg Edema, Leg Ulcers, Lightheadedness, Orthopnea, Palpitations, Paroxysmal Nocturnal Dyspnea, Pedal Edema, Radiating Pain, Rapid Heart Rate, Slow Heart Rate, Syncope, Other, UNREMARKABLE - Respiratory Respiratory: absent: As Per HPI, Cough, Dyspnea, Hemoptysis, Dyspnea on Exertion , Wheezing, Snoring, Stridor, Pain on Inspiration, Chest Congestion, Excessive Mucous Production, Change in Mucous Color, Pain with Coughing, Other, UNREMARKABLE Critical Care Progress Note - Extremities/Vascular Does the Patient have a Central Venous Catheter?: No Does the Patient need a Central Venous Catheter?: No Does the Patient have a Cano Catheter?: No Does the Patient need a Cano Catheter?: No - Nutrition Nutrition: Nutrition Category Date Time Status Heart Healthy Diet [DIET] Diets 08/04/17 Dinner Active Assessment/Plan (1) Atrial fibrillation with rapid ventricular response Current Visit: Yes Status: Acute (2) NSTEMI (non-ST elevated myocardial infarction) Current Visit: Yes Status: Acute (3) BRUNO (acute kidney injury) Current Visit: Yes Status: Acute Comment: This morning labs revealed improved renal function BUN/Cr down 27/0.4 IVF NS at 75 cc/h Renally adjust medication dose Monitor Input/Output Monitor renal function with daily basic metabolic panel (4) Dehydration Current Visit: Yes Status: Acute Comment: As per BRUNO
[2017-08-05 09:26] LABS: WHITE BLOOD COUNT 12.9 K/uL (4.8-10.8)
[2017-08-05 09:33] LABS: ALBUMIN 2.7 g/dL (3.5-5.0); BILIRUBIN,DIRECT 1.1 mg/ml (0.0-0.4)
--- NOTE | 2017-08-05 10:31 | CARD ---
APPROVED REPORT EKG Measurement Heart [id number] <Conclusion> Atrial fibrillation with rapid ventricular response ST & T wave abnormality, consider inferior ischemia ST & T wave abnormality, consider anterolateral ischemia Abnormal ECG
--- NOTE | 2017-08-05 10:31 | CARD ---
APPROVED REPORT EKG Measurement Heart [id number] <Conclusion> Atrial fibrillation with rapid ventricular response ST & T wave abnormality, consider inferior ischemia Abnormal ECG
--- NOTE | 2017-08-05 19:53 | CP.PCM.CON ---
History of Present Illness - History of Present Illness History of Present Illness: patient seen/examined full consutl to omar recommend oral cardizem givne dementia and falls risk patient is not an ideal candidate for oral anticoagulation. Past Patient History - Past Medical History & Family History Past Medical History?: Yes - Past Social History Smoking Status: Never Smoked - CARDIAC Hx Cardiac Disorders: Yes Hx Hypercholesterolemia: Yes Hx Hypertension: Yes - PULMONARY Hx Respiratory Disorders: No - NEUROLOGICAL Hx Neurological Disorder: Yes Hx Dementia: Yes - HEENT Hx HEENT Problems: No - RENAL Hx Chronic Kidney Disease: No - ENDOCRINE/METABOLIC Hx Endocrine Disorders: Yes Hx Diabetes Mellitus Type 2: Yes - HEMATOLOGICAL/ONCOLOGICAL Hx Blood Disorders: Yes Hx Blood Transfusions: Yes (childhood) - INTEGUMENTARY Hx Dermatological Problems: No - MUSCULOSKELETAL/RHEUMATOLOGICAL Hx Musculoskeletal Disorders: Yes Hx Falls: Yes - GASTROINTESTINAL Hx Gastrointestinal Disorders: No - GENITOURINARY/GYNECOLOGICAL Hx Genitourinary Disorders: No - PSYCHIATRIC Hx Psychophysiologic Disorder: No Hx Substance Use: No - SURGICAL HISTORY Hx Surgeries: Yes Other/Comment: childhoood surgery/pt cannot remember - ANESTHESIA Hx Anesthesia: Yes Hx Anesthesia Reactions: No Meds Allergies/Adverse Reactions: Allergies Allergy/AdvReac Type Severity Reaction Status Date / Time No Known Allergies Allergy Verified 08/04/17 12:46 - Medications Medications: Current Medications Aspirin (Aspirin) 325 mg PO DAILY [facility] Last Admin: 08/05/17 09:10 Dose: 325 mg Atorvastatin Calcium (Lipitor) 20 mg PO DAILY [facility] Last Admin: 08/05/17 09:11 Dose: 20 mg Carvedilol (Coreg) 12.5 mg PO Q12 [facility] Last Admin: 08/05/17 09:11 Dose: 12.5 mg Diltiazem HCl (Cardizem) 60 mg PO Q6 [facility] Insulin Human Regular (Humulin R) 0 units SC ACHS [facility] PRN Reason: Protocol Last Admin: 08/05/17 16:24 Dose: 1 unit Memantine (Namenda) 5 mg PO BID [facility] Last Admin: 08/05/17 17:01 Dose: 5 mg Results - Vital Signs Recent Vital Signs: Last Vital Signs Temp 98.2 F 08/05/17 16:29 Pulse 108 H 08/05/17 18:00 Resp 27 H 08/05/17 18:00 BP 129/85 08/05/17 18:00 Pulse Ox 92 L 08/05/17 18:00 - Labs Result Diagrams: 08/05/17 08:37 08/05/17 08:37 Labs: Laboratory Results - last 24 hr 08/04/17 08/04/17 08/05/17 21:06 21:09 04:25 WBC RBC Hgb Hct MCV MCH MCHC RDW Plt Count Sodium Potassium Chloride Carbon Dioxide Anion Gap BUN Creatinine Est GFR ( Amer) Est GFR (Non-Af Amer) POC Glucose (mg/dL) 147 H Random Glucose Calcium Total Bilirubin Direct Bilirubin AST ALT Alkaline Phosphatase Troponin I 0.2720 H* 0.2410 H* Total Protein Albumin Globulin Albumin/Globulin Ratio 08/05/17 08/05/17 08/05/17 05:55 08:37 08:37 WBC 12.9 H RBC 4.40 Hgb 13.7 Hct 43.4 MCV 98.7 MCH 31.2 H MCHC 31.6 L RDW 15.3 H Plt Count 91 L D Sodium 134 Potassium 3.8 Chloride 101 Carbon Dioxide 21 L Anion Gap 16 BUN 27 H Creatinine 0.4 L Est GFR ( Amer) > 60 Est GFR (Non-Af Amer) > 60 POC Glucose (mg/dL) 131 H Random Glucose 130 H Calcium 8.1 L Total Bilirubin Direct Bilirubin AST ALT Alkaline Phosphatase Troponin I Total Protein Albumin Globulin Albumin/Globulin Ratio 08/05/17 08/05/17 08/05/17 09:19 11:58 15:57 WBC RBC Hgb Hct MCV MCH MCHC RDW Plt Count Sodium Potassium Chloride Carbon Dioxide Anion Gap BUN Creatinine Est GFR ( Amer) Est GFR (Non-Af Amer) POC Glucose (mg/dL) 174 H 186 H Random Glucose Calcium Total Bilirubin 1.9 H Direct Bilirubin 1.1 H AST 127 H ALT 174 H D Alkaline Phosphatase 207 H Troponin I Total Protein 5.3 L Albumin 2.7 L D Globulin 2.7 Albumin/Globulin Ratio 1.0
--- NOTE | 2017-08-05 19:53 | CP.PCM.CON ---
Past Patient History - Past Medical History & Family History Past Medical History?: Yes - Past Social History Smoking Status: Never Smoked - CARDIAC Hx Cardiac Disorders: Yes Hx Hypercholesterolemia: Yes Hx Hypertension: Yes - PULMONARY Hx Respiratory Disorders: No - NEUROLOGICAL Hx Neurological Disorder: Yes Hx Dementia: Yes - HEENT Hx HEENT Problems: No - RENAL Hx Chronic Kidney Disease: No - ENDOCRINE/METABOLIC Hx Endocrine Disorders: Yes Hx Diabetes Mellitus Type 2: Yes - HEMATOLOGICAL/ONCOLOGICAL Hx Blood Disorders: Yes Hx Blood Transfusions: Yes (childhood) - INTEGUMENTARY Hx Dermatological Problems: No - MUSCULOSKELETAL/RHEUMATOLOGICAL Hx Musculoskeletal Disorders: Yes Hx Falls: Yes - GASTROINTESTINAL Hx Gastrointestinal Disorders: No - GENITOURINARY/GYNECOLOGICAL Hx Genitourinary Disorders: No - PSYCHIATRIC Hx Psychophysiologic Disorder: No Hx Substance Use: No - SURGICAL HISTORY Hx Surgeries: Yes Other/Comment: childhoood surgery/pt cannot remember - ANESTHESIA Hx Anesthesia: Yes Hx Anesthesia Reactions: No Meds Allergies/Adverse Reactions: Allergies Allergy/AdvReac Type Severity Reaction Status Date / Time No Known Allergies Allergy Verified 08/04/17 12:46 - Medications Medications: Current Medications Aspirin (Aspirin) 325 mg PO DAILY [facility] Last Admin: 08/05/17 09:10 Dose: 325 mg Atorvastatin Calcium (Lipitor) 20 mg PO DAILY [facility] Last Admin: 08/05/17 09:11 Dose: 20 mg Carvedilol (Coreg) 12.5 mg PO Q12 [facility] Last Admin: 08/05/17 09:11 Dose: 12.5 mg Diltiazem HCl (Cardizem) 60 mg PO Q6 [facility] Insulin Human Regular (Humulin R) 0 units SC ACHS [facility] PRN Reason: Protocol Last Admin: 08/05/17 16:24 Dose: 1 unit Memantine (Namenda) 5 mg PO BID [facility] Last Admin: 08/05/17 17:01 Dose: 5 mg Results - Vital Signs Recent Vital Signs: Last Vital Signs Temp 98.2 F 08/05/17 16:29 Pulse 108 H 08/05/17 18:00 Resp 27 H 08/05/17 18:00 BP 129/85 08/05/17 18:00 Pulse Ox 92 L 08/05/17 18:00 - Labs Result Diagrams: 08/05/17 08:37 08/05/17 08:37 Labs: Laboratory Results - last 24 hr 08/04/17 08/04/1718 21:06 21:09 04:25 WBC RBC Hgb Hct MCV MCH MCHC RDW Plt Count Sodium Potassium Chloride Carbon Dioxide Anion Gap BUN Creatinine Est GFR ( Amer) Est GFR (Non-Af Amer) POC Glucose (mg/dL) 147 H Random Glucose Calcium Total Bilirubin Direct Bilirubin AST ALT Alkaline Phosphatase Troponin I 0.2720 H* 0.2410 H* Total Protein Albumin Globulin Albumin/Globulin Ratio 08/05/17 08/05/17 08/05/17 05:55 08:37 08:37 WBC 12.9 H RBC 4.40 Hgb 13.7 Hct 43.4 MCV 98.7 MCH 31.2 H MCHC 31.6 L RDW 15.3 H Plt Count 91 L D Sodium 134 Potassium 3.8 Chloride 101 Carbon Dioxide 21 L Anion Gap 16 BUN 27 H Creatinine 0.4 L Est GFR ( Amer) > 60 Est GFR (Non-Af Amer) > 60 POC Glucose (mg/dL) 131 H Random Glucose 130 H Calcium 8.1 L Total Bilirubin Direct Bilirubin AST ALT Alkaline Phosphatase Troponin I Total Protein Albumin Globulin Albumin/Globulin Ratio 08/05/17 08/05/17 08/05/17 09:19 11:58 15:57 WBC RBC Hgb Hct MCV MCH MCHC RDW Plt Count Sodium Potassium Chloride Carbon Dioxide Anion Gap BUN Creatinine Est GFR ( Amer) Est GFR (Non-Af Amer) POC Glucose (mg/dL) 174 H 186 H Random Glucose Calcium Total Bilirubin 1.9 H Direct Bilirubin 1.1 H AST 127 H ALT 174 H D Alkaline Phosphatase 207 H Troponin I Total Protein 5.3 L Albumin 2.7 L D Globulin 2.7 Albumin/Globulin Ratio 1.0
--- NOTE | 2017-08-05 21:50 | CP.PCM.PN ---
Subjective - Date & Time of Evaluation Date of Evaluation: 08/05/17 Time of Evaluation: 11:00 - Subjective Subjective: Noted persistently elevated FBS Has no SOB Has no chest pain Seen by cardiology and advised against anticoagulation due to high risk for fall. Objective - Vital Signs/Intake and Output Vital Signs (last 24 hours): Temp Pulse Resp BP Pulse Ox 98.2 F 102 H 27 H 127/68 92 L 08/05/17 16:29 08/05/17 20:11 08/05/17 18:00 08/05/17 20:11 08/05/17 18:00 Intake and Output: 08/05/17 08/06/17 18:59 06:59 Intake Total 1172 Output Total 50 Balance 1122 - Medications Medications: Current Medications Aspirin (Aspirin) 325 mg PO DAILY [facility] Last Admin: 08/05/17 09:10 Dose: 325 mg Atorvastatin Calcium (Lipitor) 20 mg PO DAILY [facility] Last Admin: 08/05/17 09:11 Dose: 20 mg Carvedilol (Coreg) 12.5 mg PO Q12 [facility] Last Admin: 08/05/17 20:11 Dose: 12.5 mg Diltiazem HCl (Cardizem) 60 mg PO Q6 [facility] Sodium Chloride (Sodium Chloride 0.9%) 1,000 mls @ 75 mls/hr IV .[id number] [facility] Stop: 08/06/17 20:34 Last Admin: 08/05/17 21:00 Dose: 75 mls/hr Insulin Human Regular (Humulin R) 0 units SC ACHS [facility] PRN Reason: Protocol Last Admin: 08/05/17 16:24 Dose: 1 unit Memantine (Namenda) 5 mg PO BID [facility] Last Admin: 08/05/17 17:01 Dose: 5 mg - Labs Labs: 08/05/17 08:37 08/05/17 08:37 PT 18.5 Seconds (9.8-13.1) H 08/04/17 12:55 INR 1.7 (0.9-1.2) H 08/04/17 12:55 APTT 37.5 Seconds (25.6-37.1) H 08/04/17 12:55 - Head Exam Head Exam: NORMAL INSPECTION - Eye Exam Eye Exam: Normal appearance - Respiratory Exam Respiratory Exam: Clear to Ausculation Bilateral - Cardiovascular Exam Cardiovascular Exam: REGULAR RHYTHM - GI/Abdominal Exam GI & Abdominal Exam: Normal Bowel Sounds - Neurological Exam Neurological Exam: Altered, Awake Assessment and Plan (1) Atrial fibrillation with rapid ventricular response Status: Acute (2) NSTEMI (non-ST elevated myocardial infarction) Status: Acute (3) Dementia Status: Acute (4) Hyperglycemia Status: Acute (5) Abnormal liver enzymes Status: Acute - Assessment and Plan (Free Text) Plan: Con tmeds check US of the abd cont meds check A1c
[2017-08-06 05:49] LABS: ALBUMIN 2.6 g/dL (3.5-5.0); ALT/SGPT 156 U/L (9-52); AST/SGOT 72 U/L (14-36); BLOOD UREA NITROGEN 25 mg/dl (7-17); CALCIUM 8.2 mg/dL (8.4-10.2); GFR AFRICAN-AMERICAN > 60; GFR NON-AFRICAN AMERICAN > 60; HDL CHOLESTEROL 32 MG/DL (30-70)
[2017-08-06 05:56] LABS: LDL CHOLESTEROL 124 mg/dL (0-129)
[2017-08-06 06:10] LABS: BASO % 0.1 % (0.0-2.0); HEMOGLOBIN 15.1 g/dL (12.0-16.0); LYMPH # 0.3 K/uL (1.0-4.3); LYMPH % 2.2 % (20.0-40.0); MEAN CELL VOLUME 96.1 fl (81.0-99.0); MEAN CORPUSCULAR HEMOGLOBIN 31.3 pg (27.0-31.0); MEAN CORPUSCULAR HGB CONC 32.6 g/dL (33.0-37.0); MEAN PLATELET VOLUME 10.6 fl (7.2-11.7); MONO # 0.5 K/uL (0.0-0.8); NEUT # 14.7 K/uL (1.8-7.0); NEUT % 94.7 % (50.0-75.0); NRBC % 0.5 % (0.0-0.0); PLATELET COUNT 107 K/uL (130-400); RED CELL DISTRIBUTION WIDTH 15.1 % (11.5-14.5); WHITE BLOOD COUNT 15.5 K/uL (4.8-10.8)
[2017-08-06] MEDS: Insulin Regular 100 units/ml SC SCH ×4 (06:44→21:56)
[2017-08-06] MEDS ORDERED: Potassium Chloride 20 mEq ER Tab PO ONE (10:41)
[2017-08-06 11:09] LABS: ANISOCYTOSIS SLIGHT; LYMPHOCYTE 2 % (20-50); MONOCYTE 2 % (0-10); NEUTROPHIL 96 % (42-75); PLATELET ESTIMATE DECREASED (NORMAL); TOTAL CELLS COUNTED 100
[2017-08-06 11:10] LABS: LARGE PLATELETS PRESENT; TOXIC GRANULATION PRESENT
--- NOTE | 2017-08-06 11:37 | CP.PCM.PN ---
Subjective - Date & Time of Evaluation Date of Evaluation: 08/06/17 Time of Evaluation: 10:00 - Subjective Subjective: patient is currently off the floot. heart rate well controlled on cardizem. will follow. Objective - Vital Signs/Intake and Output Vital Signs (last 24 hours): Temp Pulse Resp BP Pulse Ox 98.2 F 94 H 20 109/75 99 08/06/17 08:29 08/06/17 08:29 08/06/17 08:29 08/06/17 08:29 08/06/17 08:29 Intake and Output: 08/06/17 08/06/17 06:59 18:59 Intake Total 1000 Output Total 200 Balance 800 - Medications Medications: Current Medications Aspirin (Aspirin) 325 mg PO DAILY [facility] Last Admin: 08/05/17 09:10 Dose: 325 mg Atorvastatin Calcium (Lipitor) 20 mg PO DAILY [facility] Last Admin: 08/05/17 09:11 Dose: 20 mg Carvedilol (Coreg) 12.5 mg PO Q12 [facility] Last Admin: 08/05/17 20:11 Dose: 12.5 mg Diltiazem HCl (Cardizem) 60 mg PO Q6 [facility] Last Admin: 08/06/17 04:07 Dose: 60 mg Insulin Human Regular (Humulin R) 0 units SC ACHS [facility] PRN Reason: Protocol Last Admin: 08/06/17 06:44 Dose: 1 unit Memantine (Namenda) 5 mg PO BID [facility] Last Admin: 08/05/17 17:01 Dose: 5 mg - Labs Labs: 08/06/17 05:00 08/06/17 05:00 PT 18.5 Seconds (9.8-13.1) H 08/04/17 12:55 INR 1.7 (0.9-1.2) H 08/04/17 12:55 APTT 37.5 Seconds (25.6-37.1) H 08/04/17 12:55
[2017-08-06] MEDS: Sodium Chloride 0.9% 1,000 ML IV SCH (12:01)
--- NOTE | 2017-08-06 12:02 | US ---
HISTORY: abnormal liver enz COMPARISON: Abdominal ultrasound dated 08/04/2017. TECHNIQUE: Sonographic evaluation of the abdomen. FINDINGS: LIVER: Measures 14.3 cm. Normal echogenicity of the liver parenchyma. No mass. No intrahepatic bile duct dilatation. GALLBLADDER: Prior cholecystectomy. COMMON BILE DUCT: Dilated, measuring 13 mm. No stones. PANCREAS: Unremarkable as visualized. No mass. No ductal dilatation. RIGHT KIDNEY: Measures 11.6 x 5.4 x 4.2cm. Upper pole cyst measuring 4.2 x 3.9 x 3.8 cm. Normal echogenicity. No calculus, mass, or hydronephrosis. LEFT KIDNEY: Measures 10.1 x 4.9 x 3.9cm. Upper pole cyst measuring 4.4 x 2.8 x 4.4 cm. Midpole cyst measuring 0.9 x 0.8 x 1.0 cm. Lower pole cyst measuring 0.9 x 1.0 x 1.0 cm. Normal echogenicity. No calculus, mass, or hydronephrosis. SPLEEN: Normal in size and contour. No mass. AORTA: No aneurysmal dilatation. IVC: Unremarkable. OTHER FINDINGS: Small volume perihepatic ascites. Partially imaged bilateral pleural effusions. IMPRESSION: Prior cholecystectomy with prominent CBD, stable. Bilateral renal cysts.
--- NOTE | 2017-08-06 13:18 | CP.PCM.PN ---
<Rohan Sanchez - Last Filed: 08/06/17 14:16> Subjective - Date & Time of Evaluation Date of Evaluation: 08/06/17 Time of Evaluation: 14:00 - Subjective Subjective: no acute distress. Met with son earlier today. Clinically improved. No acute changes in urination or stools. Refuses to eat at times but appears to drink water well. Objective - Vital Signs/Intake and Output Vital Signs (last 24 hours): Temp Pulse Resp BP Pulse Ox 98.4 F 105 H 26 H 124/77 95 08/06/17 12:00 08/06/17 12:00 08/06/17 12:00 08/06/17 12:00 08/06/17 12:54 Intake and Output: 08/06/17 08/06/17 06:59 18:59 Intake Total 1000 240 Output Total 200 100 Balance 800 140 - Medications Medications: Current Medications Aspirin (Aspirin) 325 mg PO DAILY [facility] Last Admin: 08/06/17 11:57 Dose: 325 mg Atorvastatin Calcium (Lipitor) 20 mg PO DAILY [facility] Last Admin: 08/06/17 12:01 Dose: 20 mg Carvedilol (Coreg) 12.5 mg PO Q12 [facility] Last Admin: 08/06/17 11:58 Dose: 12.5 mg Diltiazem HCl (Cardizem) 60 mg PO Q6 [facility] Last Admin: 08/06/17 11:57 Dose: 60 mg Insulin Human Regular (Humulin R) 0 units SC ACHS [facility] PRN Reason: Protocol Last Admin: 08/06/17 11:59 Dose: 1 unit Memantine (Namenda) 5 mg PO BID [facility] Last Admin: 08/06/17 12:01 Dose: 5 mg - Labs Labs: 08/06/17 05:00 08/06/17 05:00 PT 18.5 Seconds (9.8-13.1) H 08/04/17 12:55 INR 1.7 (0.9-1.2) H 08/04/17 12:55 APTT 37.5 Seconds (25.6-37.1) H 08/04/17 12:55 - Constitutional Appears: Non-toxic - Eye Exam Eye Exam: PERRL - ENT Exam ENT Exam: Mucous Membranes Moist - Respiratory Exam Respiratory Exam: Clear to Ausculation Bilateral, NORMAL BREATHING PATTERN. absent: Rales, Wheezes - Cardiovascular Exam Cardiovascular Exam: REGULAR RHYTHM, +S1, +S2. absent: Gallop - GI/Abdominal Exam GI & Abdominal Exam: Soft, Normal Bowel Sounds. absent: Distended, Firm, Guarding, Rigid - Extremities Exam Extremities Exam: Normal Capillary Refill. absent: Calf Tenderness - Neurological Exam Neurological Exam: Alert, Awake. absent: Oriented x3 - Psychiatric Exam Psychiatric exam: Normal Affect, Normal Mood - Skin Skin Exam: Warm Assessment and Plan - Assessment and Plan (Free Text) Assessment: dementia, a.fib, electrolyte imbalance Persistent hyponatremia/hypokalemia Poor oral intake Start IV NS with 20meq K at 100mls/hr 1 bag C19-9 and coags elevated Hem-onc consulted, will f/u recs Urine lytes, urine osmolarity, serum osmolarity ordered C/w Diltiazem and Coreg as per Cardio recs Cardio consult appreciated No anticoag for now due to elevated PT/PTT/INR To be transferred out of ICU <Kang Beck - Last Filed: 08/09/17 13:39> Objective - Vital Signs/Intake and Output Vital Signs (last 24 hours): Temp Pulse Resp BP Pulse Ox 97.5 F L 20 L 18 100/63 100 08/09/17 13:00 08/09/17 13:25 08/09/17 13:25 08/09/17 13:25 08/09/17 13:25 - Medications Medications: Current Medications Acetaminophen (Tylenol 325mg Tab) 650 mg PO Q6 PRN PRN Reason: Other Last Admin: 08/09/17 10:57 Dose: 650 mg Aspirin (Aspirin) 325 mg PO DAILY [facility] Last Admin: 08/09/17 09:47 Dose: 325 mg Atorvastatin Calcium (Lipitor) 20 mg PO DAILY [facility] Last Admin: 08/09/17 09:43 Dose: 20 mg Carvedilol (Coreg) 12.5 mg PO Q12 [facility] Last Admin: 08/09/17 09:44 Dose: 12.5 mg Diltiazem HCl (Cardizem) 30 mg PO QID [facility] Last Admin: 08/09/17 13:25 Dose: Not Given Ceftriaxone Sodium 1 gm/ (Sodium Chloride) 100 mls @ 100 mls/hr IVPB DAILY [facility] PRN Reason: Protocol Insulin Human Regular (Humulin R) 0 units SC ACHS [facility] PRN Reason: Protocol Last Admin: 08/09/17 13:22 Dose: 2 unit Memantine (Namenda) 5 mg PO BID [facility] Last Admin: 08/09/17 09:43 Dose: 5 mg - Labs Labs: 08/09/17 10:00 08/09/17 10:00 PT 18.5 Seconds (9.8-13.1) H 08/04/17 12:55 INR 1.7 (0.9-1.2) H 08/04/17 12:55 APTT 37.5 Seconds (25.6-37.1) H 08/04/17 12:55 Assessment and Plan (1) Atrial fibrillation with rapid ventricular response Status: Acute (2) NSTEMI (non-ST elevated myocardial infarction) Status: Acute (3) Dementia Status: Acute (4) Hyperglycemia Status: Acute (5) Abnormal liver enzymes Status: Acute (6) Pleural effusion Status: Acute (7) Ascites Status: Acute (8) Elevated CEA Status: Acute (9) Elevated CA-125 Status: Acute (10) Elevated CA 19-9 level Status: Acute (11) Leukocytosis Status: Acute - Assessment and Plan (Free Text) Plan: I was present during evaluation and discussed with Dr Sanchez re plans of care and tx. Kang Beck M.D.
[2017-08-06] MEDS ORDERED: Potassium Chl 20 mEq in NS 1,000 ML IV SCH (15:00)
[2017-08-06] MEDS ORDERED: Sodium Chloride 0.9% 1,000 ML IV SCH (22:15)
--- NOTE | 2017-08-06 23:50 | CP.PCM.PN ---
Subjective - Date & Time of Evaluation Date of Evaluation: 08/06/17 Time of Evaluation: 23:50 - Subjective Subjective: Nurse informed me that the blood pressure is 87/50mmHg in patient receiving Coreg and Cardizem. - Hypotension caused by medication The patient was given a Bolus NS 1000ml Temperature of 93.3F with normal Blood Glucose - r/o Sepsis Follow Blood culture X2; Urinalysis and urine culture; Chest X-Ray and troponin Bear Patel MD Objective - Vital Signs/Intake and Output Vital Signs (last 24 hours): Temp Pulse Resp BP Pulse Ox 95.0 F L 60 36 H 101/62 91 L 08/06/17 20:00 08/06/17 21:56 08/06/17 20:00 08/06/17 21:56 08/06/17 16:00 Intake and Output: 08/06/17 08/07/17 18:59 06:59 Intake Total 490 400 Output Total 150 Balance 340 400 - Medications Medications: Current Medications Acetaminophen (Tylenol 325mg Tab) 650 mg PO Q6 PRN PRN Reason: Other Last Admin: 08/06/17 20:14 Dose: 650 mg Aspirin (Aspirin) 325 mg PO DAILY [facility] Last Admin: 08/06/17 11:57 Dose: 325 mg Atorvastatin Calcium (Lipitor) 20 mg PO DAILY [facility] Last Admin: 08/06/17 12:01 Dose: 20 mg Carvedilol (Coreg) 12.5 mg PO Q12 [facility] Last Admin: 08/06/17 21:56 Dose: Not Given Diltiazem HCl (Cardizem) 60 mg PO Q6 [facility] Last Admin: 08/06/17 21:56 Dose: Not Given Potassium Chloride/Sodium Chloride (Potassium Chl 20 Meq In Ns) 1,000 mls @ 100 mls/hr IV .Q10H [facility] Stop: 08/07/17 00:14 Last Admin: 08/06/17 16:52 Dose: 100 mls/hr Sodium Chloride (Sodium Chloride 0.9%) 1,000 mls @ 1,000 mls/hr IV .Q1H [facility] Stop: 08/07/17 22:15 Last Admin: 08/06/17 22:33 Dose: 1,000 mls/hr Insulin Human Regular (Humulin R) 0 units SC ACHS [facility] PRN Reason: Protocol Last Admin: 08/06/17 21:56 Dose: Not Given Memantine (Namenda) 5 mg PO BID [facility] Last Admin: 08/06/17 16:52 Dose: 5 mg - Labs Labs: 08/06/17 05:00 08/06/17 05:00 PT 18.5 Seconds (9.8-13.1) H 08/04/17 12:55 INR 1.7 (0.9-1.2) H 08/04/17 12:55 APTT 37.5 Seconds (25.6-37.1) H 08/04/17 12:55
[2017-08-07] MEDS ORDERED: Simethicone 80 mg Chewtab PO STA (00:27)
[2017-08-07] MEDS ORDERED: Chlorhexidine Gluconate 1 APPL/PKT TP ONE (05:03)
[2017-08-07 05:49] LABS: BLOOD UREA NITROGEN 36 mg/dl (7-17); CALCIUM 7.8 mg/dL (8.4-10.2); GFR AFRICAN-AMERICAN > 60; GFR NON-AFRICAN AMERICAN > 60
[2017-08-07 05:55] LABS: HEMOGLOBIN 14.6 g/dL (12.0-16.0); MEAN CELL VOLUME 97.2 fl (81.0-99.0); MEAN CORPUSCULAR HEMOGLOBIN 31.1 pg (27.0-31.0); RBC 4.69 Mil/uL (3.80-5.20); RED CELL DISTRIBUTION WIDTH 15.5 % (11.5-14.5); WHITE BLOOD COUNT 18.4 K/uL (4.8-10.8)
[2017-08-07] MEDS: Insulin Regular 100 units/ml SC SCH ×5 (09:17→21:49)
--- NOTE | 2017-08-07 10:38 | CP.PCM.PN ---
Addendum entered and electronically signed by Rohan Sanchez MD 08/08/17 09: 39: Unknown cause of shock Original Note: <Rohan Sanchez - Last Filed: 08/07/17 12:51> Subjective - Date & Time of Evaluation Date of Evaluation: 08/07/17 Time of Evaluation: 09:35 - Subjective Subjective: No acute distress, sleeping in bed. Responds to verbal commands, confused. Was hypotermic overnight. With Bear hugger now. Tolerates PO but intake is limited due to mental status. Received 1L of IV fluids overnight. Slightly SOB. Lethargic. C/o feeling thirsty. Objective - Vital Signs/Intake and Output Vital Signs (last 24 hours): Temp Pulse Resp BP Pulse Ox 97.2 F L 66 16 129/82 94 L 08/07/17 08:04 08/07/17 09:16 08/07/17 08:04 08/07/17 09:16 08/07/17 08:04 Intake and Output: 08/07/17 08/07/17 06:59 18:59 Intake Total 2200 Balance 2200 - Medications Medications: Current Medications Acetaminophen (Tylenol 325mg Tab) 650 mg PO Q6 PRN PRN Reason: Other Last Admin: 08/07/17 07:09 Dose: 650 mg Aspirin (Aspirin) 325 mg PO DAILY [facility] Last Admin: 08/07/17 09:16 Dose: 325 mg Atorvastatin Calcium (Lipitor) 20 mg PO DAILY [facility] Last Admin: 08/07/17 09:17 Dose: 20 mg Carvedilol (Coreg) 12.5 mg PO Q12 [facility] Last Admin: 08/07/17 09:16 Dose: 12.5 mg Diltiazem HCl (Cardizem) 30 mg PO QID [facility] Sodium Chloride (Sodium Chloride 0.9%) 1,000 mls @ 1,000 mls/hr IV .Q1H [facility] Stop: 08/07/17 22:15 Last Admin: 08/06/17 22:33 Dose: 1,000 mls/hr Insulin Human Regular (Humulin R) 0 units SC ACHS [facility] PRN Reason: Protocol Last Admin: 08/07/17 09:28 Dose: Not Given Memantine (Namenda) 5 mg PO BID [facility] Last Admin: 08/07/17 09:17 Dose: 5 mg - Labs Labs: 08/07/17 04:25 08/07/17 04:25 PT 18.5 Seconds (9.8-13.1) H 08/04/17 12:55 INR 1.7 (0.9-1.2) H 08/04/17 12:55 APTT 37.5 Seconds (25.6-37.1) H 08/04/17 12:55 - Constitutional Appears: Non-toxic, Chronically Ill - Eye Exam Eye Exam: EOMI, PERRL - ENT Exam ENT Exam: Mucous Membranes Moist - Respiratory Exam Respiratory Exam: Decreased Breath Sounds (RLB), NORMAL BREATHING PATTERN. absent: Rales, Rhonchi, Wheezes, Respiratory Distress - Cardiovascular Exam Cardiovascular Exam: REGULAR RHYTHM, +S1, +S2. absent: Gallop - GI/Abdominal Exam GI & Abdominal Exam: Soft, Tenderness, Normal Bowel Sounds. absent: Distended, Firm, Guarding, Rigid, Rebound - Neurological Exam Neurological Exam: Alert, Awake. absent: Oriented x3 - Skin Skin Exam: Pallor, Warm Assessment and Plan - Assessment and Plan (Free Text) Assessment: A.fib stable: C/w rate control meds. Cardio consult appreciated Dehydration/Electrlyte imbalance: Improved Sudden onset R/PE: F/U Chest CT. Will refrain from diuretics at this time since patient was dehydrated before and still feels thirsty Pulmonology consult: Will f/u recs Coagulopathy/Elevated C19-9: Hem-onc consult appreciated. F/u recs. Hypotermia: Improved. C/w bear hugging. R/O infection. Urine uncollected. No evident source of possible infection as a cause of shockish event overnight <Lázaro Kwong - Last Filed: 08/07/17 18:17> Objective - Vital Signs/Intake and Output Vital Signs (last 24 hours): Temp Pulse Resp BP Pulse Ox 97.3 F L 66 17 150/90 98 08/07/17 16:16 08/07/17 16:35 08/07/17 16:16 08/07/17 16:16 08/07/17 16:16 Intake and Output: 08/07/17 08/07/17 06:59 18:59 Intake Total 2200 Balance 2200 - Medications Medications: Current Medications Acetaminophen (Tylenol 325mg Tab) 650 mg PO Q6 PRN PRN Reason: Other Last Admin: 08/07/17 15:53 Dose: 650 mg Aspirin (Aspirin) 325 mg PO DAILY [facility] Last Admin: 08/07/17 09:16 Dose: 325 mg Atorvastatin Calcium (Lipitor) 20 mg PO DAILY [facility] Last Admin: 08/07/17 09:17 Dose: 20 mg Carvedilol (Coreg) 12.5 mg PO Q12 [facility] Last Admin: 08/07/17 09:16 Dose: 12.5 mg Diltiazem HCl (Cardizem) 30 mg PO QID [facility] Last Admin: 08/07/17 13:23 Dose: 30 mg Insulin Human Regular (Humulin R) 0 units SC ACHS [facility] PRN Reason: Protocol Last Admin: 08/07/17 13:17 Dose: Not Given Memantine (Namenda) 5 mg PO BID [facility] Last Admin: 08/07/17 09:17 Dose: 5 mg - Labs Labs: 08/07/17 04:25 08/07/17 04:25 PT 18.5 Seconds (9.8-13.1) H 08/04/17 12:55 INR 1.7 (0.9-1.2) H 08/04/17 12:55 APTT 37.5 Seconds (25.6-37.1) H 08/04/17 12:55 <Kang Beck - Last Filed: 08/09/17 13:21> Objective - Vital Signs/Intake and Output Vital Signs (last 24 hours): Temp Pulse Resp BP Pulse Ox 97.3 F L 78 18 134/83 95 08/09/17 08:00 08/09/17 09:44 08/09/17 09:43 08/09/17 09:44 08/09/17 09:43 - Medications Medications: Current Medications Acetaminophen (Tylenol 325mg Tab) 650 mg PO Q6 PRN PRN Reason: Other Last Admin: 08/09/17 10:57 Dose: 650 mg Aspirin (Aspirin) 325 mg PO DAILY [facility] Last Admin: 08/09/17 09:47 Dose: 325 mg Atorvastatin Calcium (Lipitor) 20 mg PO DAILY [facility] Last Admin: 08/09/17 09:43 Dose: 20 mg Carvedilol (Coreg) 12.5 mg PO Q12 [facility] Last Admin: 08/09/17 09:44 Dose: 12.5 mg Diltiazem HCl (Cardizem) 30 mg PO QID [facility] Last Admin: 08/09/17 09:43 Dose: 30 mg Ceftriaxone Sodium 1 gm/ (Sodium Chloride) 100 mls @ 100 mls/hr IVPB DAILY [facility] PRN Reason: Protocol Insulin Human Regular (Humulin R) 0 units SC ACHS [facility] PRN Reason: Protocol Last Admin: 08/09/17 06:56 Dose: 2 unit Memantine (Namenda) 5 mg PO BID [facility] Last Admin: 08/09/17 09:43 Dose: 5 mg - Labs Labs: 08/09/17 10:00 08/09/17 10:00 PT 18.5 Seconds (9.8-13.1) H 08/04/17 12:55 INR 1.7 (0.9-1.2) H 08/04/17 12:55 APTT 37.5 Seconds (25.6-37.1) H 08/04/17 12:55 Assessment and Plan (1) Atrial fibrillation with rapid ventricular response Status: Acute (2) NSTEMI (non-ST elevated myocardial infarction) Status: Acute (3) Dementia Status: Acute (4) Hyperglycemia Status: Acute (5) Abnormal liver enzymes Status: Acute - Assessment and Plan (Free Text) Plan: I was present during the evaluation and discussed with Dr Sanchez re plans of care and tx. kang Beck M.D.
--- NOTE | 2017-08-07 11:05 | RAD ---
PROCEDURE: CHEST RADIOGRAPH, 1 VIEW HISTORY: Pleural effusion COMPARISON: 08/04/2017 FINDINGS: LUNGS: Interval opacification right lung base Interval obscuration left hemidiaphragm -left basal subsegmental atelectasis and or infiltrate with or without small left effusion here-considerations. PLEURA: Interval right pleural effusion with inferred consolidative atelectasis. Concomitant additional underlying pathology like infiltrate not excluded. CARDIOVASCULAR: Cardiomegaly-similar Atherosclerotic vascular calcifications present. . OSSEOUS STRUCTURES: Scoliosis. Generalized osteopenia. Bilateral shoulder arthrosis. VISUALIZED UPPER ABDOMEN: Right upper quadrant clips -inferred post cholecystectomy status OTHER FINDINGS: None. IMPRESSION: Interval right pleural effusion with inferred right passive compressive atelectasis. Additional left basal pathology suggested. Follow-up to resolution recommended.
--- NOTE | 2017-08-07 12:02 | CP.PCM.CON ---
History of Present Illness - History of Present Illness History of Present Illness: This is a 77 yrs old female with h/o dementia, hypertension and hyperlipidemia.. She lives alone at home and recently has been losing weight and appetite is very poor. History was obtained from the chart, because pt does not talk much, only gives yes and no answers. She has not had any blood in the stools or urine according to her son. CBC except the the platelets which are 93. chemistries are more or less normal. A Ca 19-9 was 137, but the abdominal ultrasound does not show any pathology in the pancreas or liver. A ct scan is not yet done. She is a non smoker and has no h/o alcohol abuse Past Patient History - Past Medical History & Family History Past Medical History?: Yes - Past Social History Smoking Status: Never Smoked - CARDIAC Hx Cardiac Disorders: Yes Hx Hypercholesterolemia: Yes Hx Hypertension: Yes - PULMONARY Hx Respiratory Disorders: No - NEUROLOGICAL Hx Neurological Disorder: Yes Hx Dementia: Yes - HEENT Hx HEENT Problems: No - RENAL Hx Chronic Kidney Disease: No - ENDOCRINE/METABOLIC Hx Endocrine Disorders: Yes Hx Diabetes Mellitus Type 2: Yes - HEMATOLOGICAL/ONCOLOGICAL Hx Blood Disorders: Yes Hx Blood Transfusions: Yes (childhood) - INTEGUMENTARY Hx Dermatological Problems: No - MUSCULOSKELETAL/RHEUMATOLOGICAL Hx Musculoskeletal Disorders: Yes Hx Falls: Yes - GASTROINTESTINAL Hx Gastrointestinal Disorders: No - GENITOURINARY/GYNECOLOGICAL Hx Genitourinary Disorders: No - PSYCHIATRIC Hx Psychophysiologic Disorder: No Hx Substance Use: No - SURGICAL HISTORY Hx Surgeries: Yes Other/Comment: childhoood surgery/pt cannot remember - ANESTHESIA Hx Anesthesia: Yes Hx Anesthesia Reactions: No Meds Allergies/Adverse Reactions: Allergies Allergy/AdvReac Type Severity Reaction Status Date / Time No Known Allergies Allergy Verified 08/04/17 12:46 - Medications Medications: Current Medications Acetaminophen (Tylenol 325mg Tab) 650 mg PO Q6 PRN PRN Reason: Other Last Admin: 08/07/17 07:09 Dose: 650 mg Aspirin (Aspirin) 325 mg PO DAILY [facility] Last Admin: 08/07/17 09:16 Dose: 325 mg Atorvastatin Calcium (Lipitor) 20 mg PO DAILY [facility] Last Admin: 08/07/17 09:17 Dose: 20 mg Carvedilol (Coreg) 12.5 mg PO Q12 [facility] Last Admin: 08/07/17 09:16 Dose: 12.5 mg Diltiazem HCl (Cardizem) 30 mg PO QID [facility] Sodium Chloride (Sodium Chloride 0.9%) 1,000 mls @ 1,000 mls/hr IV .Q1H [facility] Stop: 08/07/17 22:15 Last Admin: 08/06/17 22:33 Dose: 1,000 mls/hr Insulin Human Regular (Humulin R) 0 units SC ACHS [facility] PRN Reason: Protocol Last Admin: 08/07/17 09:28 Dose: Not Given Memantine (Namenda) 5 mg PO BID [facility] Last Admin: 08/07/17 09:17 Dose: 5 mg Physical Exam - Additional Findings Additional findings: Physical exam; Pt is very confused and lethargic neck; supple, no adenopathy Chest; clear, slightly decreased bvreath sounds Heart; tachycardic, Abdomen; Soft, no mass, no h/s megaly Results - Vital Signs Recent Vital Signs: Last Vital Signs Temp 97.2 F L 08/07/17 11:54 Pulse 79 08/07/17 11:54 Resp 18 08/07/17 11:54 BP 136/81 08/07/17 11:54 Pulse Ox 96 08/07/17 11:54 - Labs Result Diagrams: 08/07/17 04:25 08/07/17 04:25 Labs: Laboratory Results - last 24 hr 08/06/17 08/06/17 08/06/17 05:00 05:00 16:46 WBC RBC Hgb Hct MCV MCH MCHC RDW Plt Count Sodium Potassium Chloride Carbon Dioxide Anion Gap BUN Creatinine Est GFR ( Amer) Est GFR (Non-Af Amer) POC Glucose (mg/dL) 245 H Random Glucose Hemoglobin A1c 6.7 H Serum Osmolality Calcium Troponin I CA 19-9 Antigen 137 H TSH 3rd Generation Urine Osmolality Ur Random Sodium Ur Random Potassium 08/06/17 08/06/17 08/06/17 17:18 19:33 21:39 WBC RBC Hgb Hct MCV MCH MCHC RDW Plt Count Sodium Potassium Chloride Carbon Dioxide Anion Gap BUN Creatinine Est GFR ( Amer) Est GFR (Non-Af Amer) POC Glucose (mg/dL) 192 H Random Glucose Hemoglobin A1c Serum Osmolality 290 Calcium Troponin I CA 19-9 Antigen TSH 3rd Generation Urine Osmolality 644 Ur Random Sodium 5 Ur Random Potassium 13.1 03/08/07/17 08/07/17 00:30 00:30 04:25 WBC RBC Hgb Hct MCV MCH MCHC RDW Plt Count Sodium 132 Potassium 5.0 Chloride 103 Carbon Dioxide 15 L Anion Gap 19 BUN 36 H Creatinine 0.6 L Est GFR ( Amer) > 60 Est GFR (Non-Af Amer) > 60 POC Glucose (mg/dL) Random Glucose 181 H Hemoglobin A1c Serum Osmolality Calcium 7.8 L Troponin I 0.1110 0.0990 CA 19-9 Antigen TSH 3rd Generation 2.57 Urine Osmolality Ur Random Sodium Ur Random Potassium 08/07/17 08/07/17 08/07/17 04:25 05:53 11:16 WBC 18.4 H RBC 4.69 Hgb 14.6 Hct 45.6 MCV 97.2 MCH 31.1 H MCHC 32.0 L RDW 15.5 H Plt Count 93 L Sodium Potassium Chloride Carbon Dioxide Anion Gap BUN Creatinine Est GFR ( Amer) Est GFR (Non-Af Amer) POC Glucose (mg/dL) 195 H 199 H Random Glucose Hemoglobin A1c Serum Osmolality Calcium Troponin I CA 19-9 Antigen TSH 3rd Generation Urine Osmolality Ur Random Sodium Ur Random Potassium Assessment & Plan - Assessment and Plan (Free Text) Assessment: Impression; Weight loss, r/o occult malignancy Her 19-9 is elevated but it is more of a follow up tool rather than a diagnostic tool. Plan: Plan; Would suggest a ct scan of the chest,abd and pelvis to look for a lesion. Have ordered CEA and CA125. - Date & Time Date: 08/07/17 (n) Time: 12:32
--- NOTE | 2017-08-07 15:21 | CP.PCM.CON ---
History of Present Illness - History of Present Illness History of Present Illness: Pulmonary consult for respiratory distress on 08/07/17. 77 y/o F, Hx Dementia, admitted on 08/04/17 to [facility], [place] for generalized weakness for 2 days [employer], associated to dizziness, poor appetite, Pt with no improvement. Worsening symptoms: In ER found to be in Afib with RVR ( started on Cardizem drip ), NSTEMI, dehydration, no c/o of CP/SOB on admission. On 08/07/17, I asked to see Pt due to moderate SOB, Pt lethargic, abnormal CXR. Aggravated factor: Poor historian. No: Fever, chills, pain, syncope, CP, palpitations, headache, numbness, n/v/d, abdominal pain, urinary symptoms. CXR: R pleural effusion with inferred R passive compressive atelectasis, internal opacification R lung base. Additional basal pathology. Review of Systems - Review of Systems Systems not reviewed;Unavailable: Acuity of Condition, Dementia Past Patient History - Past Medical History & Family History Past Medical History?: Yes Pertinent Family History: Unknown - Past Social History Smoking Status: Never Smoked Alcohol: None Drugs: Denies Home Situation {Lives}: Alone - CARDIAC Hx Cardiac Disorders: Yes Hx Hypercholesterolemia: Yes Hx Hypertension: Yes - PULMONARY Hx Respiratory Disorders: No - NEUROLOGICAL Hx Neurological Disorder: Yes Hx Dementia: Yes - HEENT Hx HEENT Problems: No - RENAL Hx Chronic Kidney Disease: No - ENDOCRINE/METABOLIC Hx Endocrine Disorders: Yes Hx Diabetes Mellitus Type 2: Yes - HEMATOLOGICAL/ONCOLOGICAL Hx Blood Disorders: Yes Hx Blood Transfusions: Yes (childhood) - INTEGUMENTARY Hx Dermatological Problems: No - MUSCULOSKELETAL/RHEUMATOLOGICAL Hx Musculoskeletal Disorders: Yes Hx Falls: Yes - GASTROINTESTINAL Hx Gastrointestinal Disorders: No - GENITOURINARY/GYNECOLOGICAL Hx Genitourinary Disorders: No - PSYCHIATRIC Hx Psychophysiologic Disorder: No Hx Substance Use: No - SURGICAL HISTORY Hx Surgeries: Yes Other/Comment: childhoood surgery/pt cannot remember - ANESTHESIA Hx Anesthesia: Yes Hx Anesthesia Reactions: No Meds Allergies/Adverse Reactions: Allergies Allergy/AdvReac Type Severity Reaction Status Date / Time No Known Allergies Allergy Verified 08/04/17 12:46 - Medications Medications: Current Medications Acetaminophen (Tylenol 325mg Tab) 650 mg PO Q6 PRN PRN Reason: Other Last Admin: 08/07/17 07:09 Dose: 650 mg Aspirin (Aspirin) 325 mg PO DAILY [facility] Last Admin: 08/07/17 09:16 Dose: 325 mg Atorvastatin Calcium (Lipitor) 20 mg PO DAILY [facility] Last Admin: 08/07/17 09:17 Dose: 20 mg Carvedilol (Coreg) 12.5 mg PO Q12 [facility] Last Admin: 08/07/17 09:16 Dose: 12.5 mg Diltiazem HCl (Cardizem) 30 mg PO QID [facility] Last Admin: 08/07/17 13:23 Dose: 30 mg Insulin Human Regular (Humulin R) 0 units SC ACHS [facility] PRN Reason: Protocol Last Admin: 08/07/17 13:17 Dose: Not Given Memantine (Namenda) 5 mg PO BID [facility] Last Admin: 08/07/17 09:17 Dose: 5 mg Physical Exam - Constitutional Appears: Confused, Chronically Ill - Head Exam Head Exam: NORMAL INSPECTION - Eye Exam Eye Exam: PERRL - ENT Exam ENT Exam: Normal Exam - Neck Exam Neck exam: Positive for: Normal Inspection - Respiratory Exam Respiratory Exam: Decreased Breath Sounds (slightly decreased b/l base.) - Cardiovascular Exam Cardiovascular Exam: REGULAR RHYTHM - GI/Abdominal Exam GI & Abdominal Exam: Normal Bowel Sounds, Soft - Extremities Exam Extremities exam: Positive for: normal inspection - Neurological Exam Additional comments: Awake, confused, lethargic - Skin Skin Exam: Pallor, Warm Results - Vital Signs Recent Vital Signs: Last Vital Signs Temp 97.2 F L 08/07/17 11:54 Pulse 82 08/07/17 13:23 Resp 18 08/07/17 13:23 BP 136/81 08/07/17 13:23 Pulse Ox 96 08/07/17 13:23 reviewed J.P. - Labs Result Diagrams: 08/07/17 04:25 08/07/17 04:25 Labs: Laboratory Results - last 24 hr 08/06/17 08/06/17 08/06/17 16:46 17:18 19:33 WBC RBC Hgb Hct MCV MCH MCHC RDW Plt Count Sodium Potassium Chloride Carbon Dioxide Anion Gap BUN Creatinine Est GFR ( Amer) Est GFR (Non-Af Amer) POC Glucose (mg/dL) 245 H Random Glucose Serum Osmolality 290 Calcium Troponin I NT-Pro-B Natriuret Pep TSH 3rd Generation Urine Osmolality 644 Ur Random Sodium 5 Ur Random Potassium 13.1 08/06/17 08/07/17 08/07/17 21:39 00:30 00:30 WBC RBC Hgb Hct MCV MCH MCHC RDW Plt Count Sodium Potassium Chloride Carbon Dioxide Anion Gap BUN Creatinine Est GFR ( Amer) Est GFR (Non-Af Amer) POC Glucose (mg/dL) 192 H Random Glucose Serum Osmolality Calcium Troponin I 0.1110 NT-Pro-B Natriuret Pep TSH 3rd Generation 2.57 Urine Osmolality Ur Random Sodium Ur Random Potassium 08/07/17 08/07/17 08/07/17 04:25 04:25 05:53 WBC 18.4 H RBC 4.69 Hgb 14.6 Hct 45.6 MCV 97.2 MCH 31.1 H MCHC 32.0 L RDW 15.5 H Plt Count 93 L Sodium 132 Potassium 5.0 Chloride 103 Carbon Dioxide 15 L Anion Gap 19 BUN 36 H Creatinine 0.6 L Est GFR ( Amer) > 60 Est GFR (Non-Af Amer) > 60 POC Glucose (mg/dL) 195 H Random Glucose 181 H Serum Osmolality Calcium 7.8 L Troponin I 0.0990 NT-Pro-B Natriuret Pep TSH 3rd Generation Urine Osmolality Ur Random Sodium Ur Random Potassium 08/07/17 08/07/17 11:16 12:10 WBC RBC Hgb Hct MCV MCH MCHC RDW Plt Count Sodium Potassium Chloride Carbon Dioxide Anion Gap BUN Creatinine Est GFR ( Amer) Est GFR (Non-Af Amer) POC Glucose (mg/dL) 199 H Random Glucose Serum Osmolality Calcium Troponin I NT-Pro-B Natriuret Pep 1670 H TSH 3rd Generation Urine Osmolality Ur Random Sodium Ur Random Potassium reviewed J.P. - EKG Data EKG comments: reviewed J.P. - Imaging and Cardiology Chest x-ray Status: Report reviewed by me (J.P.) CT scan - head Status: Report reviewed by me (JMaeveP.) Assessment & Plan (1) Respiratory distress Status: Acute Priority: High (2) Pleural effusion Status: Acute Priority: High (3) Atelectasis of both lungs Status: Acute Priority: High (4) Atrial fibrillation with rapid ventricular response Status: Acute Priority: High - Assessment and Plan (Free Text) Plan: F/U CT Chest. Respiratory distress 2nd to pleural effusion, lungs atelectasis. Respiratory condition is aggravated by cardiac condition, Continue current cardiac Tx as per Cardiology. - Date & Time Date: 08/07/17 Time: 13:30
--- NOTE | 2017-08-07 18:04 | CARD ---
APPROVED REPORT EXAM: Two-dimensional and M-mode echocardiogram with Doppler and color Doppler. Other Information Quality : GoodRhythm : NSR INDICATION Non STEMI 2D DIMENSIONS IVSd1.08 (0.7-1.1cm)LVDd3.51 (3.9-5.9cm) LVOT Diameter1.63 (1.8-2.4cm)PWd0.93 (0.7-1.1cm) IVSs0.95 (0.8-1.2cm)LVDs2.62 (2.5-4.0cm) FS (%) 25.2 %PWs1.26 (0.8-1.2cm) M-Mode DIMENSIONS Left Atrium (MM)5.46 (2.5-4.0cm)IVSd1.17 (0.7-1.1cm) Aortic Root2.42 (2.2-3.7cm)LVDd3.54 (4.0-5.6cm) Aortic Cusp Exc.0.69 (1.5-2.0cm)PWd1.03 (0.7-1.1cm) IVSs1.65 cmFS (%) 50 % LVDs1.79 (2.0-3.8cm)PWs1.16 cm Mitral Valve MV E Ygwvymsa66.4cm/sMV DECEL [id number] A Opdkjtcw64.9cm/s MV DIT47mnQ/A ratio1.5MVA (PHT)5.81cm2 TDI Lateral E' Peak V10.27cm/sMedial E' Peak V3.50cm/sE/Lateral E'9.1 E/Medial E'26.7 Pulmonary Valve PV Peak Nphavzqy950.2cm/s Tricuspid Valve TR Peak Ozntxlro821na/sRAP [id number] Peak Gr.30mmHg [id number] LEFT VENTRICLE The left ventricle is normal size. There is mild to moderate concentric left ventricular hypertrophy. Left ventricle systolic function is moderately impaired. The Ejection Fraction is 40-45%. Apical hypokinesis Transmitral Doppler flow pattern is Grade II-pseudonormal filling dynamics. RIGHT VENTRICLE The right ventricle is normal size. There is normal right ventricular wall thickness. The right ventricular systolic function is normal. ATRIA The left atrium is severely dilated. The right atrium is moderately dilated. AORTIC VALVE The aortic valve is moderately thickened. No aortic regurgitation is present. There is no aortic valvular stenosis. MITRAL VALVE The mitral valve is mildly thickened. There is no mitral valve stenosis. Mitral regurgitation is moderate. TRICUSPID VALVE The tricuspid valve is normal in structure. There is moderate tricuspid regurgitation. There is mild pulmonary hypertension. PULMONIC VALVE The pulmonary valve is normal in structure. There is no pulmonic valvular regurgitation. GREAT VESSELS The aortic root is normal in size. The IVC is normal in size and collapses >50% with inspiration. PERICARDIAL EFFUSION There is a trace loculated anterior pericardial effusion. There is moderate pleural effusion. <Conclusion> The left ventricle is normal size. There is mild to moderate concentric left ventricular hypertrophy. Left ventricle systolic function is moderately impaired. The Ejection Fraction is 40-45%. Apical hypokinesis Transmitral Doppler flow pattern is Grade II-pseudonormal filling dynamics. Mitral regurgitation is moderate. There is moderate tricuspid regurgitation. There is mild pulmonary hypertension.
[2017-08-08] MEDS: Insulin Regular 100 units/ml SC SCH ×4 (07:28→22:20)
--- NOTE | 2017-08-08 09:19 | PQF GENQUE ---
Dr. Beck, Please clarify type of shock: i.e. Anaphylactic (indicate causative food, toxin, drug/medication) Cardiogenic Due to anesthesia Due to surgery Due to trauma Hemorrhagic Due to surgery Due to trauma Other (please specify) Hypovolemic Postoperative Cardiogenic Hypovolemic Septic Other (please specify) Traumatic Other type not specified above (please specify) Clinically unable to determine Unknown 08/06@16:00; B/P: 86/47->86/47->112/51----08/07:@00:00: 87/50->93/61 08/06: Hospitalist: Hypotension caused by medication The patient was given a Bolus NS 1000ml Temperature of 93.3F with normal Blood Glucose - r/o Sepsis Follow Blood culture X2; Urinalysis and urine culture; Chest X-Ray and troponin 08/07 :Resident working with attending; Hypotermia: Improved. C/w bear hugging. R /O infection. Urine uncollected : No evident source of possible infection as a cause of shockish event overnight This form is a permanent part of the medical record Clarification of your documentation is requested to better reflect the severity of illness and intensity of treatment of your patient. Indicators present [] Specify: [] [] Specify: [] [] Specify: [] [] Specify: [] Location in the medical record that reflects the above clinical findings: [] Treatment Provided: [] PHYSICIAN'S RESPONSE Based on your medical judgment of the clinical indicators outlined above please clarify the following: [] Practitioner response [] If unable to determine, please check the box, sign and date. Present On Admission (POA) Indicator: [] Present at the time of admission [] Not present at the time of admission [] Clinically Undetermined In responding to this query, please exercise your independent professional judgment. The fact that a question is asked does not imply that any particular answer is desired or expected. Thank you for your clarification on this documentation. If you have any questions please call. * Thank you, Anastasiia Gan RN ext. #[phone] MTDD
[2017-08-08] MEDS ORDERED: Iodixanol 320 MG/ML 100 ML BOTTLE IV ONE (11:48)
--- NOTE | 2017-08-08 14:09 | CT ---
PROCEDURE: CT Abdomen and Pelvis with contrast HISTORY: R/o ocult malignancy COMPARISON: None. TECHNIQUE: Contrast dose: 90 cc Visipaque 320 Radiation dose: Total exam DLP = 503.49 mGy-cm. This CT exam was performed using one or more of the following dose reduction techniques: Automated exposure control, adjustment of the mA and/or kV according to patient size, and/or use of iterative reconstruction technique. FINDINGS: Please note that images through the abdomen and pelvis were obtained without adequate delay and subsequently were obtained in the hepatic arterial phase of enhancement. LOWER THORAX: Bilateral moderate pleural effusion with lower lobe subsegmental atelectasis. Minimal lingular subsegmental atelectasis. Mild cardiomegaly. LIVER: Unremarkable. No gross lesion or ductal dilatation. GALLBLADDER AND BILE DUCTS: Status post cholecystectomy. PANCREAS: Unremarkable. No gross lesion or ductal dilatation. SPLEEN: Unremarkable. ADRENALS: Mild bilateral adrenal hypertrophy. KIDNEYS AND URETERS: Right upper pole renal cortical cyst, 5.0 cm. Left upper pole renal cortical cyst, 3.5 cm. No hydronephrosis. No renal calculus. VASCULATURE: Unremarkable. No aortic aneurysm. BOWEL: Sigmoid diverticulosis. No evidence of diverticulitis. No bowel obstruction. APPENDIX: Normal appendix. PERITONEUM: Mild ascites. LYMPH NODES: Unremarkable. No enlarged lymph nodes. BLADDER: Unremarkable. REPRODUCTIVE: Unremarkable uterus BONES: Thoracolumbar levoscoliosis. No acute fracture. OTHER FINDINGS: None. IMPRESSION: No evidence of occult malignancy. Bilateral pleural effusion and lower lobe subsegmental atelectasis. Mild ascites. Status post cholecystectomy. Bilateral upper pole renal cortical cysts. Sigmoid diverticulosis.
--- NOTE | 2017-08-08 14:10 | CT ---
PROCEDURE: CT Chest with contrast (Pulmonary Angiogram) HISTORY: Shortness of breath COMPARISON: Plain radiograph from 08/07/2017. TECHNIQUE: Axial computed tomography images were obtained of the chest in the pulmonary arterial phase of enhancement. Coronal and sagittal reformatted images were created and reviewed. Intravenous contrast dose: 99 cc Visipaque 320 Radiation dose: Total exam DLP = 503.49 mGy-cm. This CT exam was performed using one or more of the following dose reduction techniques: Automated exposure control, adjustment of the mA and/or kV according to patient size, and/or use of iterative reconstruction technique. FINDINGS: PULMONARY ARTERIES: There are no filling defects in the pulmonary arteries to suggest acute pulmonary embolism. . AORTA: No acute findings. No thoracic aortic aneurysm. LUNGS: Compressive atelectasis of the posterior segments of the right upper lobe, posterior middle lobes and lower lobes. . No nodule, mass or pulmonary consolidation. PLEURAL SPACES: There are bilateral large pleural effusions with compressive atelectasis in the lungs. No pneumothorax HEART: There is mild cardiomegaly and small pericardial effusion LYMPH NODES: No pathologic lymphadenopathy. BONES, CHEST WALL: There is mild dextroscoliosis in the thoracic spine. No fracture or destructive lesion multilevel degenerative disc disease. OTHER FINDINGS: Unremarkable. IMPRESSION: No CTA evidence for acute pulmonary embolism. Large bilateral pleural effusions, mild cardiomegaly and small pericardial effusion.
[2017-08-09] MEDS: Insulin Regular 100 units/ml SC SCH ×4 (06:56→22:25)
[2017-08-09 10:46] LABS: HEMOGLOBIN 13.9 g/dL (12.0-16.0); MEAN CELL VOLUME 96.4 fl (81.0-99.0); MEAN CORPUSCULAR HEMOGLOBIN 30.7 pg (27.0-31.0); MEAN CORPUSCULAR HGB CONC 31.9 g/dL (33.0-37.0); RBC 4.53 Mil/uL (3.80-5.20); RED CELL DISTRIBUTION WIDTH 15.6 % (11.5-14.5); WHITE BLOOD COUNT 19.4 K/uL (4.8-10.8)
[2017-08-09 11:08] LABS: ALB/GLOB RATIO 0.9 (1.0-2.1); ALBUMIN 2.1 g/dL (3.5-5.0); ALT/SGPT 96 U/L (9-52); AST/SGOT 37 U/L (14-36); BLOOD UREA NITROGEN 29 mg/dl (7-17); GFR AFRICAN-AMERICAN > 60; GFR NON-AFRICAN AMERICAN > 60
--- NOTE | 2017-08-09 13:30 | CP.PCM.PN ---
Subjective - Date & Time of Evaluation Date of Evaluation: 08/08/17 Time of Evaluation: 11:00 - Subjective Subjective: Patient has been stable But noted increase in WBC. All blood c and S were negative for growth No urine C and s yet Ct scan of the chest showed increased bilateral pleural effusion. CT of the abd showed mild ascites. Objective - Vital Signs/Intake and Output Vital Signs (last 24 hours): Temp Pulse Resp BP Pulse Ox 97.3 F L 20 L 18 100/63 100 08/09/17 08:00 08/09/17 13:25 08/09/17 13:25 08/09/17 13:25 08/09/17 13:25 - Medications Medications: Current Medications Acetaminophen (Tylenol 325mg Tab) 650 mg PO Q6 PRN PRN Reason: Other Last Admin: 08/09/17 10:57 Dose: 650 mg Aspirin (Aspirin) 325 mg PO DAILY [facility] Last Admin: 08/09/17 09:47 Dose: 325 mg Atorvastatin Calcium (Lipitor) 20 mg PO DAILY [facility] Last Admin: 08/09/17 09:43 Dose: 20 mg Carvedilol (Coreg) 12.5 mg PO Q12 [facility] Last Admin: 08/09/17 09:44 Dose: 12.5 mg Diltiazem HCl (Cardizem) 30 mg PO QID [facility] Last Admin: 08/09/17 13:25 Dose: Not Given Ceftriaxone Sodium 1 gm/ (Sodium Chloride) 100 mls @ 100 mls/hr IVPB DAILY [facility] PRN Reason: Protocol Insulin Human Regular (Humulin R) 0 units SC ACHS [facility] PRN Reason: Protocol Last Admin: 08/09/17 13:22 Dose: 2 unit Memantine (Namenda) 5 mg PO BID [facility] Last Admin: 08/09/17 09:43 Dose: 5 mg - Labs Labs: 08/09/17 10:00 08/09/17 10:00 PT 18.5 Seconds (9.8-13.1) H 08/04/17 12:55 INR 1.7 (0.9-1.2) H 08/04/17 12:55 APTT 37.5 Seconds (25.6-37.1) H 08/04/17 12:55 - Head Exam Head Exam: NORMAL INSPECTION - Eye Exam Eye Exam: Normal appearance - ENT Exam ENT Exam: Mucous Membranes Moist - Respiratory Exam Additional comments: bibasal crepitations - Cardiovascular Exam Cardiovascular Exam: REGULAR RHYTHM - GI/Abdominal Exam GI & Abdominal Exam: Normal Bowel Sounds - Neurological Exam Neurological Exam: Altered, Awake Assessment and Plan (1) Atrial fibrillation with rapid ventricular response Status: Acute (2) NSTEMI (non-ST elevated myocardial infarction) Status: Acute (3) Dementia Status: Acute (4) Hyperglycemia Status: Acute (5) Abnormal liver enzymes Status: Acute (6) Pleural effusion Status: Acute (7) Ascites Status: Acute (8) Elevated CEA Status: Acute (9) Elevated CA-125 Status: Acute (10) Elevated CA 19-9 level Status: Acute - Assessment and Plan (Free Text) Plan: Follow up with oncology Cont meds Cont tx Cont meds repeat cbc cmp in am urine C and S start rocephin
--- NOTE | 2017-08-09 13:36 | CP.PCM.PN ---
Subjective - Date & Time of Evaluation Date of Evaluation: 08/09/17 Time of Evaluation: 13:32 - Subjective Subjective: Patient has been stable Much more alert. Still with very poor appetite Noted CEA CA 125 and CA 19 9 to be elevated Has no SOB or chest pain Has no fever On Rocephin Noted increase in WBC to 19. No source of infection so far. Objective - Vital Signs/Intake and Output Vital Signs (last 24 hours): Temp Pulse Resp BP Pulse Ox 97.5 F L 20 L 18 100/63 100 08/09/17 13:00 08/09/17 13:25 08/09/17 13:25 08/09/17 13:25 08/09/17 13:25 - Medications Medications: Current Medications Acetaminophen (Tylenol 325mg Tab) 650 mg PO Q6 PRN PRN Reason: Other Last Admin: 08/09/17 10:57 Dose: 650 mg Aspirin (Aspirin) 325 mg PO DAILY [facility] Last Admin: 08/09/17 09:47 Dose: 325 mg Atorvastatin Calcium (Lipitor) 20 mg PO DAILY [facility] Last Admin: 08/09/17 09:43 Dose: 20 mg Carvedilol (Coreg) 12.5 mg PO Q12 [facility] Last Admin: 08/09/17 09:44 Dose: 12.5 mg Diltiazem HCl (Cardizem) 30 mg PO QID [facility] Last Admin: 08/09/17 13:25 Dose: Not Given Ceftriaxone Sodium 1 gm/ (Sodium Chloride) 100 mls @ 100 mls/hr IVPB DAILY [facility] PRN Reason: Protocol Insulin Human Regular (Humulin R) 0 units SC ACHS [facility] PRN Reason: Protocol Last Admin: 08/09/17 13:22 Dose: 2 unit Memantine (Namenda) 5 mg PO BID [facility] Last Admin: 08/09/17 09:43 Dose: 5 mg - Labs Labs: 08/09/17 10:00 08/09/17 10:00 PT 18.5 Seconds (9.8-13.1) H 08/04/17 12:55 INR 1.7 (0.9-1.2) H 08/04/17 12:55 APTT 37.5 Seconds (25.6-37.1) H 08/04/17 12:55 - Eye Exam Eye Exam: Normal appearance - ENT Exam ENT Exam: Mucous Membranes Moist - Respiratory Exam Additional comments: bibasal crepitations - Cardiovascular Exam Cardiovascular Exam: Irregular Rhythm - GI/Abdominal Exam GI & Abdominal Exam: Normal Bowel Sounds - Neurological Exam Neurological Exam: Altered, Awake Assessment and Plan (1) Atrial fibrillation with rapid ventricular response Status: Acute (2) NSTEMI (non-ST elevated myocardial infarction) Status: Acute (3) Dementia Status: Acute (4) Hyperglycemia Status: Acute (5) Abnormal liver enzymes Status: Acute (6) Pleural effusion Status: Acute (7) Ascites Status: Acute (8) Elevated CEA Status: Acute (9) Elevated CA-125 Status: Acute (10) Elevated CA 19-9 level Status: Acute (11) Leukocytosis Status: Acute - Assessment and Plan (Free Text) Plan: Cont meds Comt Rocephin urine C and s ID eval follow up with hematology CT reviewed no masses noted but has mild ascites. liver morph is normal will do hepatitis profile.
--- NOTE | 2017-08-09 13:52 | CP.PCM.PN ---
Subjective - Date & Time of Evaluation Date of Evaluation: 08/09/17 Time of Evaluation: 09:20 - Subjective Subjective: F/U Respiratory Distress. No A/D, no SOB, no chest congestion. Objective - Vital Signs/Intake and Output Vital Signs (last 24 hours): Temp Pulse Resp BP Pulse Ox 97.5 F L 20 L 18 100/63 100 08/09/17 13:00 08/09/17 13:25 08/09/17 13:25 08/09/17 13:25 08/09/17 13:25 - Medications Medications: Current Medications Acetaminophen (Tylenol 325mg Tab) 650 mg PO Q6 PRN PRN Reason: Other Last Admin: 08/09/17 10:57 Dose: 650 mg Aspirin (Aspirin) 325 mg PO DAILY [facility] Last Admin: 08/09/17 09:47 Dose: 325 mg Atorvastatin Calcium (Lipitor) 20 mg PO DAILY [facility] Last Admin: 08/09/17 09:43 Dose: 20 mg Carvedilol (Coreg) 12.5 mg PO Q12 [facility] Last Admin: 08/09/17 09:44 Dose: 12.5 mg Diltiazem HCl (Cardizem) 30 mg PO QID [facility] Last Admin: 08/09/17 13:25 Dose: Not Given Ceftriaxone Sodium 1 gm/ (Sodium Chloride) 100 mls @ 100 mls/hr IVPB DAILY [facility] PRN Reason: Protocol Insulin Human Regular (Humulin R) 0 units SC ACHS [facility] PRN Reason: Protocol Last Admin: 08/09/17 13:22 Dose: 2 unit Memantine (Namenda) 5 mg PO BID [facility] Last Admin: 08/09/17 09:43 Dose: 5 mg - Labs Labs: 08/09/17 10:00 08/09/17 10:00 PT 18.5 Seconds (9.8-13.1) H 08/04/17 12:55 INR 1.7 (0.9-1.2) H 08/04/17 12:55 APTT 37.5 Seconds (25.6-37.1) H 08/04/17 12:55 - Constitutional Appears: Chronically Ill - Head Exam Head Exam: NORMAL INSPECTION - Eye Exam Eye Exam: PERRL - ENT Exam ENT Exam: Normal Exam - Neck Exam Neck Exam: Normal Inspection - Respiratory Exam Respiratory Exam: Decreased Breath Sounds (at bases) - Cardiovascular Exam Cardiovascular Exam: REGULAR RHYTHM - GI/Abdominal Exam GI & Abdominal Exam: Soft, Normal Bowel Sounds - Extremities Exam Extremities Exam: Pedal Edema - Back Exam Back Exam: CVA tenderness (L) - Neurological Exam Neurological Exam: Awake Additional comments: Forgetful, Ox2. - Skin Skin Exam: Warm Assessment and Plan (1) Respiratory distress Status: Acute (2) Pleural effusion Status: Acute (3) Atelectasis of both lungs Status: Resolved (4) Atrial fibrillation with rapid ventricular response Status: Resolved - Assessment and Plan (Free Text) Plan: Continue cardiac treatment , patient on Rocephin for Leukocytosis , all C-S negative, suggest IR consult for Thoracentesis , ID consult
[2017-08-09 16:11] LABS: SQUAMOUS EPITHIAL < 1 /hpf (0-5); URINE BILIRUBIN NEGATIVE (NEGATIVE); URINE BLOOD SMALL (NEGATIVE); URINE CLARITY SLIGHTY-CLOUDY (Clear); URINE COLOR YELLOW (YELLOW); URINE GLUCOSE (UA) 150 mg/dL (Normal); URINE LEUKOCYTE ESTERASE NEG Leu/uL (Negative); URINE PROTEIN NEGATIVE (NEGATIVE); URINE UROBILINOGEN 0.2-1.0 mg/dL (0.2-1.0)
[2017-08-09 16:56] LABS: HEPATITIS B SURFACE AG Negative (NEGATIVE)
[2017-08-09 17:01] LABS: HEPATITIS A IGM NEGATIVE (NEGATIVE)
[2017-08-10] MEDS: Insulin Regular 100 units/ml SC SCH ×4 (06:49→22:38)
[2017-08-10 08:07] LABS: HEMOGLOBIN 14.3 g/dL (12.0-16.0); MEAN CELL VOLUME 95.7 fl (81.0-99.0); MEAN CORPUSCULAR HEMOGLOBIN 31.1 pg (27.0-31.0); MEAN CORPUSCULAR HGB CONC 32.5 g/dL (33.0-37.0); RBC 4.6 Mil/uL (3.80-5.20); RED CELL DISTRIBUTION WIDTH 15.9 % (11.5-14.5); WHITE BLOOD COUNT 16.2 K/uL (4.8-10.8)
[2017-08-10 08:16] LABS: BLOOD UREA NITROGEN 26 mg/dl (7-17); CALCIUM 8.1 mg/dL (8.4-10.2); GFR AFRICAN-AMERICAN > 60; GFR NON-AFRICAN AMERICAN > 60
--- NOTE | 2017-08-10 09:45 | CP.PCM.PN ---
Subjective - Date & Time of Evaluation Date of Evaluation: 08/10/17 Time of Evaluation: 09:43 - Subjective Subjective: Pt is awake, but a little lethargic. She absolutely refuses to eat anything. This could be secondary to her dementia and depression, However all her tumor markers are positive. There is no mass, but there are bilateral pleural effusions and mild ascitis. Objective - Vital Signs/Intake and Output Vital Signs (last 24 hours): Temp Pulse Resp BP Pulse Ox 97.5 F L 72 18 138/78 96 08/10/17 08:00 08/10/17 08:42 08/10/17 08:41 08/10/17 08:42 08/10/17 08:41 - Medications Medications: Current Medications Acetaminophen (Tylenol 325mg Tab) 650 mg PO Q6 PRN PRN Reason: Other Last Admin: 08/09/17 10:57 Dose: 650 mg Aspirin (Aspirin) 325 mg PO DAILY [facility] Last Admin: 08/10/17 08:44 Dose: 325 mg Atorvastatin Calcium (Lipitor) 20 mg PO DAILY [facility] Last Admin: 08/10/17 08:42 Dose: 20 mg Carvedilol (Coreg) 12.5 mg PO Q12 [facility] Last Admin: 08/10/17 08:42 Dose: 12.5 mg Diltiazem HCl (Cardizem) 30 mg PO QID [facility] Last Admin: 08/10/17 08:41 Dose: 30 mg Ceftriaxone Sodium 1 gm/ (Sodium Chloride) 100 mls @ 100 mls/hr IVPB DAILY [facility] PRN Reason: Protocol Last Admin: 08/10/17 08:44 Dose: 100 mls/hr Insulin Human Regular (Humulin R) 0 units SC ACHS [facility] PRN Reason: Protocol Last Admin: 08/10/17 06:49 Dose: 1 unit Memantine (Namenda) 5 mg PO BID [facility] Last Admin: 08/10/17 08:42 Dose: 5 mg - Labs Labs: 08/10/17 07:05 08/10/17 07:05 PT 18.5 Seconds (9.8-13.1) H 08/04/17 12:55 INR 1.7 (0.9-1.2) H 08/04/17 12:55 APTT 37.5 Seconds (25.6-37.1) H 08/04/17 12:55
[2017-08-11] MEDS ORDERED: Oxycodone/Acetaminophen 5/325 mg Tab PO ONE (02:05)
[2017-08-11] MEDS: Insulin Regular 100 units/ml SC SCH ×4 (07:44→23:13)
[2017-08-11 12:28] LABS: HEMOGLOBIN 14.8 g/dL (12.0-16.0); MEAN CELL VOLUME 96.3 fl (81.0-99.0); MEAN CORPUSCULAR HEMOGLOBIN 30.6 pg (27.0-31.0); MEAN CORPUSCULAR HGB CONC 31.8 g/dL (33.0-37.0); RBC 4.84 Mil/uL (3.80-5.20); RED CELL DISTRIBUTION WIDTH 16.3 % (11.5-14.5); WHITE BLOOD COUNT 12.7 K/uL (4.8-10.8)
[2017-08-11 12:34] LABS: ALB/GLOB RATIO 0.8 (1.0-2.1); ALBUMIN 2.3 g/dL (3.5-5.0); ALT/SGPT 66 U/L (9-52); AST/SGOT 87 U/L (14-36); BLOOD UREA NITROGEN 21 mg/dl (7-17); GFR AFRICAN-AMERICAN > 60; GFR NON-AFRICAN AMERICAN > 60
--- NOTE | 2017-08-11 14:27 | CP.PCM.PN ---
Subjective - Date & Time of Evaluation Date of Evaluation: 08/11/17 Time of Evaluation: 12:00 - Subjective Subjective: F/U Respiratory Distress. Patient awake , no SOB , no C/P , no Chest congestion , nurses and family complain that Patient has no apetite , not eating meals Objective - Vital Signs/Intake and Output Vital Signs (last 24 hours): Temp Pulse Resp BP Pulse Ox 97.8 F 66 18 148/83 95 08/11/17 12:00 08/11/17 14:23 08/11/17 14:23 08/11/17 14:23 08/11/17 14:23 - Medications Medications: Current Medications Acetaminophen (Tylenol 325mg Tab) 650 mg PO Q6 PRN PRN Reason: Other Last Admin: 08/10/17 22:26 Dose: 650 mg Aspirin (Aspirin) 325 mg PO DAILY [facility] Last Admin: 08/11/17 10:13 Dose: 325 mg Atorvastatin Calcium (Lipitor) 20 mg PO DAILY [facility] Last Admin: 08/11/17 10:09 Dose: 20 mg Carvedilol (Coreg) 12.5 mg PO Q12 [facility] Last Admin: 08/11/17 10:09 Dose: 12.5 mg Diltiazem HCl (Cardizem) 30 mg PO QID [facility] Last Admin: 08/11/17 14:23 Dose: 30 mg Ceftriaxone Sodium 1 gm/ (Sodium Chloride) 100 mls @ 100 mls/hr IVPB DAILY [facility] PRN Reason: Protocol Last Admin: 08/11/17 10:10 Dose: 100 mls/hr Insulin Human Regular (Humulin R) 0 units SC ACHS [facility] PRN Reason: Protocol Last Admin: 08/11/17 13:50 Dose: Not Given Megestrol Acetate (Megace) 20 mg PO DAILY [facility] Last Admin: 08/11/17 10:09 Dose: 20 mg Memantine (Namenda) 5 mg PO BID [facility] Last Admin: 08/11/17 10:09 Dose: 5 mg - Labs Labs: 08/11/17 11:13 08/11/17 11:13 PT 18.5 Seconds (9.8-13.1) H 08/04/17 12:55 INR 1.7 (0.9-1.2) H 08/04/17 12:55 APTT 37.5 Seconds (25.6-37.1) H 08/04/17 12:55 - Constitutional Appears: Chronically Ill - Head Exam Head Exam: NORMAL INSPECTION - Eye Exam Eye Exam: PERRL - ENT Exam ENT Exam: Normal Exam - Neck Exam Neck Exam: Normal Inspection - Respiratory Exam Respiratory Exam: Decreased Breath Sounds (at bases ) - Cardiovascular Exam Cardiovascular Exam: REGULAR RHYTHM - GI/Abdominal Exam GI & Abdominal Exam: Soft, Normal Bowel Sounds - Extremities Exam Extremities Exam: Pedal Edema Additional comments: . - Back Exam Back Exam: NORMAL INSPECTION - Neurological Exam Neurological Exam: Awake (generalized weakness , no focal motor/sensory deficit) Additional comments: Ox2, Confused, generalized weakness - Skin Skin Exam: Warm Assessment and Plan (1) Respiratory distress Status: Acute (2) Pleural effusion Status: Acute (3) Atelectasis of both lungs Status: Resolved (4) Atrial fibrillation with rapid ventricular response Status: Resolved - Assessment and Plan (Free Text) Plan: on TPN , suggest IR for Thoracentesis , f/u coagulation profile , ID consult
[2017-08-11] MEDS ORDERED: Multivitamin (MVI) 10 ML, Trace Elements-Cr/Cu/Mn/Zn 3 ML in Amino/Dex E 4.25/10 1000 M... IV ONE (16:30)
--- NOTE | 2017-08-11 23:23 | CP.PCM.PN ---
Subjective - Date & Time of Evaluation Date of Evaluation: 08/10/17 Time of Evaluation: 11:30 - Subjective Subjective: Patient continues to have very poor intake and refuses any food. Has no fever. Noted elevated WBC No source of infection so far. Objective - Vital Signs/Intake and Output Vital Signs (last 24 hours): Temp Pulse Resp BP Pulse Ox 98.2 F 73 16 114/73 98 08/11/17 19:57 08/11/17 23:12 08/11/17 19:57 08/11/17 23:12 08/11/17 19:57 - Medications Medications: Current Medications Acetaminophen (Tylenol 325mg Tab) 650 mg PO Q6 PRN PRN Reason: Other Last Admin: 08/11/17 20:29 Dose: 650 mg Aspirin (Aspirin) 325 mg PO DAILY [facility] Last Admin: 08/11/17 10:13 Dose: 325 mg Atorvastatin Calcium (Lipitor) 20 mg PO DAILY [facility] Last Admin: 08/11/17 10:09 Dose: 20 mg Carvedilol (Coreg) 12.5 mg PO Q12 [facility] Last Admin: 08/11/17 23:12 Dose: 12.5 mg Diltiazem HCl (Cardizem) 30 mg PO QID [facility] Last Admin: 08/11/17 23:11 Dose: 30 mg Ceftriaxone Sodium 1 gm/ (Sodium Chloride) 100 mls @ 100 mls/hr IVPB DAILY [facility] PRN Reason: Protocol Last Admin: 08/11/17 10:10 Dose: 100 mls/hr Fat Emulsion Intravenous (Intralipid 20%) 250 mls @ 10.417 mls/hr IV .Q24H ONE Stop: 08/13/17 08:59 Multivitamins/Vitamin C 10 ml/Chromium/Copper/Manganese/Zinc 3 ml/ Amino Acids/ Electrolytes/Dextrose 1,013 mls @ 80 mls/hr IV .[id number] ONE Stop: 08/12/17 05:09 Last Admin: 08/11/17 17:47 Dose: 80 mls/hr Amino Acids/Electrolytes/Dextrose (Clinimix E 4.25/10 1000 Ml) 1,000 mls @ 80 mls/hr IV .[id number] ONE Stop: 08/12/17 16:59 Insulin Human Regular (Humulin R) 0 units SC [facility] PRN Reason: Protocol Last Admin: 08/11/17 23:13 Dose: Not Given Megestrol Acetate (Megace) 20 mg PO DAILY [facility] Last Admin: 08/11/17 10:09 Dose: 20 mg Memantine (Namenda) 5 mg PO BID [facility] Last Admin: 08/11/17 17:47 Dose: 5 mg - Labs Labs: 08/11/17 11:13 08/11/17 11:13 PT 18.5 Seconds (9.8-13.1) H 08/04/17 12:55 INR 1.7 (0.9-1.2) H 08/04/17 12:55 APTT 37.5 Seconds (25.6-37.1) H 08/04/17 12:55 - Head Exam Head Exam: NORMAL INSPECTION - Eye Exam Eye Exam: Normal appearance - Respiratory Exam Respiratory Exam: Decreased Breath Sounds - Cardiovascular Exam Cardiovascular Exam: REGULAR RHYTHM - GI/Abdominal Exam GI & Abdominal Exam: Normal Bowel Sounds - Neurological Exam Neurological Exam: Altered, Awake Assessment and Plan (1) Atrial fibrillation with rapid ventricular response Status: Resolved (2) NSTEMI (non-ST elevated myocardial infarction) Status: Acute (3) Dementia Status: Acute (4) Hyperglycemia Status: Acute (5) Abnormal liver enzymes Status: Acute (6) Pleural effusion Status: Acute (7) Ascites Status: Acute (8) Elevated CEA Status: Acute (9) Elevated CA-125 Status: Acute (10) Elevated CA 19-9 level Status: Acute (11) Leukocytosis Status: Acute - Assessment and Plan (Free Text) Plan: Cont meds Discussed with Dr Kwong will continue to monitor caloric intake will start PPN.
--- NOTE | 2017-08-11 23:25 | CP.PCM.PN ---
Subjective - Date & Time of Evaluation Date of Evaluation: 08/11/17 Time of Evaluation: 12:15 - Subjective Subjective: Patient remains to have very poor intake Caloric count showed almost no intake Currently only on IVF. Noted worsening of pleural effusion. Discussed with Dr Kwong and plans o to have thoracentesis. Objective - Vital Signs/Intake and Output Vital Signs (last 24 hours): Temp Pulse Resp BP Pulse Ox 98.2 F 73 16 114/73 98 08/11/17 19:57 08/11/17 23:12 08/11/17 19:57 08/11/17 23:12 08/11/17 19:57 - Medications Medications: Current Medications Acetaminophen (Tylenol 325mg Tab) 650 mg PO Q6 PRN PRN Reason: Other Last Admin: 08/11/17 20:29 Dose: 650 mg Aspirin (Aspirin) 325 mg PO DAILY [facility] Last Admin: 08/11/17 10:13 Dose: 325 mg Atorvastatin Calcium (Lipitor) 20 mg PO DAILY [facility] Last Admin: 08/11/17 10:09 Dose: 20 mg Carvedilol (Coreg) 12.5 mg PO Q12 [facility] Last Admin: 08/11/17 23:12 Dose: 12.5 mg Diltiazem HCl (Cardizem) 30 mg PO QID [facility] Last Admin: 08/11/17 23:11 Dose: 30 mg Ceftriaxone Sodium 1 gm/ (Sodium Chloride) 100 mls @ 100 mls/hr IVPB DAILY [facility] PRN Reason: Protocol Last Admin: 08/11/17 10:10 Dose: 100 mls/hr Fat Emulsion Intravenous (Intralipid 20%) 250 mls @ 10.417 mls/hr IV .Q24H ONE Stop: 08/13/17 08:59 Multivitamins/Vitamin C 10 ml/Chromium/Copper/Manganese/Zinc 3 ml/ Amino Acids/ Electrolytes/Dextrose 1,013 mls @ 80 mls/hr IV .[id number] ONE Stop: 08/12/17 05:09 Last Admin: 08/11/17 17:47 Dose: 80 mls/hr Amino Acids/Electrolytes/Dextrose (Clinimix E 4.25/10 1000 Ml) 1,000 mls @ 80 mls/hr IV .[id number] ONE Stop: 08/12/17 16:59 Insulin Human Regular (Humulin R) 0 units SC ACHS [facility] PRN Reason: Protocol Last Admin: 08/11/17 23:13 Dose: Not Given Megestrol Acetate (Megace) 20 mg PO DAILY [facility] Last Admin: 08/11/17 10:09 Dose: 20 mg Memantine (Namenda) 5 mg PO BID [facility] Last Admin: 08/11/17 17:47 Dose: 5 mg - Labs Labs: 08/11/17 11:13 08/11/17 11:13 PT 18.5 Seconds (9.8-13.1) H 08/04/17 12:55 INR 1.7 (0.9-1.2) H 08/04/17 12:55 APTT 37.5 Seconds (25.6-37.1) H 08/04/17 12:55 - Head Exam Head Exam: NORMAL INSPECTION - Eye Exam Eye Exam: Normal appearance - ENT Exam ENT Exam: Mucous Membranes Moist - Respiratory Exam Respiratory Exam: Decreased Breath Sounds - Cardiovascular Exam Cardiovascular Exam: REGULAR RHYTHM - GI/Abdominal Exam GI & Abdominal Exam: Normal Bowel Sounds - Neurological Exam Neurological Exam: Altered, Awake Assessment and Plan (1) Atrial fibrillation with rapid ventricular response Status: Resolved (2) NSTEMI (non-ST elevated myocardial infarction) Status: Acute (3) Dementia Status: Acute (4) Hyperglycemia Status: Acute (5) Abnormal liver enzymes Status: Acute (6) Pleural effusion Status: Acute (7) Ascites Status: Acute (8) Elevated CEA Status: Acute (9) Elevated CA-125 Status: Acute (10) Elevated CA 19-9 level Status: Acute (11) Leukocytosis Status: Acute - Assessment and Plan (Free Text) Plan: Cont meds Con ttx encourage po intake Megace start PPN
[2017-08-12] MEDS ORDERED: Amino/Dex E 4.25/10 1000 ML 1,000 ML IV ONE (04:30)
[2017-08-12] MEDS: Insulin Regular 100 units/ml SC SCH ×4 (06:32→21:54)
[2017-08-12] MEDS ORDERED: Fat Emulsion 20% IV 250 ML IV ONE (09:00)
--- NOTE | 2017-08-12 11:14 | CP.PCM.PN ---
Subjective - Date & Time of Evaluation Date of Evaluation: 08/12/17 Time of Evaluation: 11:13 - Subjective Subjective: Pt still refises to eat. She is very fragile. She was started on ppn, and is to have a thoracentesis for evaluation of te pleural fluid for cytology. Objective - Vital Signs/Intake and Output Vital Signs (last 24 hours): Temp Pulse Resp BP Pulse Ox 97.5 F L 75 16 135/75 97 08/12/17 08:52 08/12/17 09:38 08/12/17 09:38 08/12/17 09:38 08/12/17 09:38 - Medications Medications: Current Medications Acetaminophen (Tylenol 325mg Tab) 650 mg PO Q6 PRN PRN Reason: Other Last Admin: 08/11/17 20:29 Dose: 650 mg Aspirin (Aspirin) 325 mg PO DAILY [facility] Last Admin: 08/12/17 09:45 Dose: 325 mg Atorvastatin Calcium (Lipitor) 20 mg PO DAILY [facility] Last Admin: 08/12/17 09:38 Dose: 20 mg Carvedilol (Coreg) 12.5 mg PO Q12 [facility] Last Admin: 08/12/17 09:38 Dose: 12.5 mg Diltiazem HCl (Cardizem) 30 mg PO QID [facility] Last Admin: 08/12/17 09:38 Dose: 30 mg Ceftriaxone Sodium 1 gm/ (Sodium Chloride) 100 mls @ 100 mls/hr IVPB DAILY [facility] PRN Reason: Protocol Last Admin: 08/12/17 09:43 Dose: 100 mls/hr Fat Emulsion Intravenous (Intralipid 20%) 250 mls @ 10.417 mls/hr IV .Q24H ONE Stop: 08/13/17 08:59 Last Admin: 08/12/17 09:44 Dose: 10.417 mls/hr Amino Acids/Electrolytes/Dextrose (Clinimix E 4.25/10 1000 Ml) 1,000 mls @ 80 mls/hr IV .[id number] ONE Stop: 08/12/17 16:59 Last Admin: 08/12/17 04:30 Dose: 80 mls/hr Insulin Human Regular (Humulin R) 0 units SC ACHS [facility] PRN Reason: Protocol Last Admin: 08/12/17 06:32 Dose: 3 unit Megestrol Acetate (Megace) 20 mg PO DAILY [facility] Last Admin: 08/12/17 09:43 Dose: 20 mg Memantine (Namenda) 5 mg PO BID [facility] Last Admin: 08/12/17 09:43 Dose: 5 mg - Labs Labs: 08/11/17 11:13 08/11/17 11:13 PT 18.5 Seconds (9.8-13.1) H 08/04/17 12:55 INR 1.7 (0.9-1.2) H 08/04/17 12:55 APTT 37.5 Seconds (25.6-37.1) H 08/04/17 12:55
--- NOTE | 2017-08-12 11:17 | CP.PCM.PN ---
Subjective - Date & Time of Evaluation Date of Evaluation: 08/12/17 Time of Evaluation: 11:17 Objective - Vital Signs/Intake and Output Vital Signs (last 24 hours): Temp Pulse Resp BP Pulse Ox 97.5 F L 75 16 135/75 97 08/12/17 08:52 08/12/17 09:38 08/12/17 09:38 08/12/17 09:38 08/12/17 09:38 - Medications Medications: Current Medications Acetaminophen (Tylenol 325mg Tab) 650 mg PO Q6 PRN PRN Reason: Other Last Admin: 08/11/17 20:29 Dose: 650 mg Aspirin (Aspirin) 325 mg PO DAILY [facility] Last Admin: 08/12/17 09:45 Dose: 325 mg Atorvastatin Calcium (Lipitor) 20 mg PO DAILY [facility] Last Admin: 08/12/17 09:38 Dose: 20 mg Carvedilol (Coreg) 12.5 mg PO Q12 [facility] Last Admin: 08/12/17 09:38 Dose: 12.5 mg Diltiazem HCl (Cardizem) 30 mg PO QID [facility] Last Admin: 08/12/17 09:38 Dose: 30 mg Ceftriaxone Sodium 1 gm/ (Sodium Chloride) 100 mls @ 100 mls/hr IVPB DAILY [facility] PRN Reason: Protocol Last Admin: 08/12/17 09:43 Dose: 100 mls/hr Fat Emulsion Intravenous (Intralipid 20%) 250 mls @ 10.417 mls/hr IV .Q24H ONE Stop: 08/13/17 08:59 Last Admin: 08/12/17 09:44 Dose: 10.417 mls/hr Amino Acids/Electrolytes/Dextrose (Clinimix E 4.25/10 1000 Ml) 1,000 mls @ 80 mls/hr IV .[id number] ONE Stop: 08/12/17 16:59 Last Admin: 08/12/17 04:30 Dose: 80 mls/hr Insulin Human Regular (Humulin R) 0 units SC ACHS [facility] PRN Reason: Protocol Last Admin: 08/12/17 06:32 Dose: 3 unit Megestrol Acetate (Megace) 20 mg PO DAILY [facility] Last Admin: 08/12/17 09:43 Dose: 20 mg Memantine (Namenda) 5 mg PO BID [facility] Last Admin: 04/02/18 09:43 Dose: 5 mg - Labs Labs: 08/11/17 11:13 08/11/17 11:13 PT 18.5 Seconds (9.8-13.1) H 08/04/17 12:55 INR 1.7 (0.9-1.2) H 08/04/17 12:55 APTT 37.5 Seconds (25.6-37.1) H 08/04/17 12:55
--- NOTE | 2017-08-12 14:22 | CP.PCM.PN ---
Subjective - Date & Time of Evaluation Date of Evaluation: 08/12/17 Time of Evaluation: 14:20 - Subjective Subjective: Patient continues to refuse oral intake Has no SOB No fever. started on PPN yesterday. Objective - Vital Signs/Intake and Output Vital Signs (last 24 hours): Temp Pulse Resp BP Pulse Ox 97.6 F 66 16 104/62 97 08/12/17 12:15 08/12/17 12:26 08/12/17 12:15 08/12/17 12:26 08/12/17 12:15 - Medications Medications: Current Medications Acetaminophen (Tylenol 325mg Tab) 650 mg PO Q6 PRN PRN Reason: Other Last Admin: 08/11/17 20:29 Dose: 650 mg Aspirin (Aspirin) 325 mg PO DAILY [facility] Last Admin: 08/12/17 09:45 Dose: 325 mg Atorvastatin Calcium (Lipitor) 20 mg PO DAILY [facility] Last Admin: 08/12/17 09:38 Dose: 20 mg Carvedilol (Coreg) 12.5 mg PO Q12 [facility] Last Admin: 08/12/17 09:38 Dose: 12.5 mg Diltiazem HCl (Cardizem) 30 mg PO QID [facility] Last Admin: 08/12/17 12:26 Dose: 30 mg Ceftriaxone Sodium 1 gm/ (Sodium Chloride) 100 mls @ 100 mls/hr IVPB DAILY [facility] PRN Reason: Protocol Last Admin: 08/12/17 09:43 Dose: 100 mls/hr Fat Emulsion Intravenous (Intralipid 20%) 250 mls @ 10.417 mls/hr IV .Q24H ONE Stop: 08/13/17 08:59 Last Admin: 08/12/17 09:44 Dose: 10.417 mls/hr Amino Acids/Electrolytes/Dextrose (Clinimix E 4.25/10 1000 Ml) 1,000 mls @ 80 mls/hr IV .[id number] ONE Stop: 08/12/17 16:59 Last Admin: 08/12/17 04:30 Dose: 80 mls/hr Insulin Human Regular (Humulin R) 0 units SC ACHS [facility] PRN Reason: Protocol Last Admin: 08/12/17 12:25 Dose: 3 unit Megestrol Acetate (Megace) 20 mg PO DAILY [facility] Last Admin: 08/12/17 09:43 Dose: 20 mg Memantine (Namenda) 5 mg PO BID [facility] Last Admin: 08/12/17 09:43 Dose: 5 mg - Labs Labs: 08/11/17 11:13 08/11/17 11:13 PT 18.5 Seconds (9.8-13.1) H 08/04/17 12:55 INR 1.7 (0.9-1.2) H 08/04/17 12:55 APTT 37.5 Seconds (25.6-37.1) H 08/04/17 12:55 - Head Exam Head Exam: NORMAL INSPECTION - Eye Exam Eye Exam: Normal appearance - ENT Exam ENT Exam: Mucous Membranes Moist - Respiratory Exam Respiratory Exam: Clear to Ausculation Bilateral - Cardiovascular Exam Cardiovascular Exam: REGULAR RHYTHM - GI/Abdominal Exam GI & Abdominal Exam: Normal Bowel Sounds - Neurological Exam Neurological Exam: Awake Assessment and Plan (1) Atrial fibrillation with rapid ventricular response Status: Resolved (2) NSTEMI (non-ST elevated myocardial infarction) Status: Acute (3) Dementia Status: Acute (4) Hyperglycemia Status: Acute (5) Abnormal liver enzymes Status: Acute (6) Pleural effusion Status: Acute (7) Ascites Status: Acute (8) Elevated CEA Status: Acute (9) Elevated CA-125 Status: Acute (10) Elevated CA 19-9 level Status: Acute (11) Leukocytosis Status: Acute - Assessment and Plan (Free Text) Plan: Cont meds Cont tx PPN will discusse with family about need for thoracentesis
[2017-08-12 15:58] LABS: HEMOGLOBIN 14.4 g/dL (12.0-16.0); MEAN CELL VOLUME 95.3 fl (81.0-99.0); MEAN CORPUSCULAR HEMOGLOBIN 30.8 pg (27.0-31.0); MEAN CORPUSCULAR HGB CONC 32.3 g/dL (33.0-37.0); RBC 4.67 Mil/uL (3.80-5.20); RED CELL DISTRIBUTION WIDTH 15.9 % (11.5-14.5); WHITE BLOOD COUNT 13.8 K/uL (4.8-10.8)
[2017-08-12 16:09] LABS: ALB/GLOB RATIO 0.8 (1.0-2.1); ALBUMIN 2.1 g/dL (3.5-5.0); ALT/SGPT 70 U/L (9-52); AST/SGOT 37 U/L (14-36); BLOOD UREA NITROGEN 21 mg/dl (7-17); CALCIUM 8.1 mg/dL (8.4-10.2); GFR AFRICAN-AMERICAN > 60; GFR NON-AFRICAN AMERICAN > 60
--- NOTE | 2017-08-12 16:46 | CP.PCM.PN ---
Subjective - Date & Time of Evaluation Date of Evaluation: 08/12/17 Time of Evaluation: 11:50 - Subjective Subjective: F/U Respiratory Distress. no AD , no SOB , no apetite Objective - Vital Signs/Intake and Output Vital Signs (last 24 hours): Temp Pulse Resp BP Pulse Ox 97.3 F L 75 18 135/75 97 08/12/17 16:13 08/12/17 16:35 08/12/17 16:13 08/12/17 16:35 08/12/17 16:13 - Medications Medications: Current Medications Acetaminophen (Tylenol 325mg Tab) 650 mg PO Q6 PRN PRN Reason: Other Last Admin: 08/12/17 16:34 Dose: 650 mg Aspirin (Aspirin) 325 mg PO DAILY [facility] Last Admin: 08/12/17 09:45 Dose: 325 mg Atorvastatin Calcium (Lipitor) 20 mg PO DAILY [facility] Last Admin: 08/12/17 09:38 Dose: 20 mg Carvedilol (Coreg) 12.5 mg PO Q12 [facility] Last Admin: 08/12/17 09:38 Dose: 12.5 mg Diltiazem HCl (Cardizem) 30 mg PO QID [facility] Last Admin: 08/12/17 16:35 Dose: 30 mg Ceftriaxone Sodium 1 gm/ (Sodium Chloride) 100 mls @ 100 mls/hr IVPB DAILY [facility] PRN Reason: Protocol Last Admin: 08/12/17 09:43 Dose: 100 mls/hr Fat Emulsion Intravenous (Intralipid 20%) 250 mls @ 10.417 mls/hr IV .Q24H ONE Stop: 08/13/17 08:59 Last Admin: 08/12/17 09:44 Dose: 10.417 mls/hr Amino Acids/Electrolytes/Dextrose (Clinimix E 4.25/10 1000 Ml) 1,000 mls @ 80 mls/hr IV .[id number] ONE Stop: 08/12/17 16:59 Last Admin: 08/12/17 04:30 Dose: 80 mls/hr Insulin Human Regular (Humulin R) 0 units SC ACHS [facility] PRN Reason: Protocol Last Admin: 08/12/17 16:36 Dose: 3 unit Megestrol Acetate (Megace) 20 mg PO DAILY [facility] Last Admin: 08/12/17 09:43 Dose: 20 mg Memantine (Namenda) 5 mg PO BID [facility] Last Admin: 08/12/17 09:43 Dose: 5 mg - Labs Labs: 08/12/17 15:45 08/12/17 15:45 PT 18.5 Seconds (9.8-13.1) H 08/04/17 12:55 INR 1.7 (0.9-1.2) H 08/04/17 12:55 APTT 37.5 Seconds (25.6-37.1) H 08/04/17 12:55 - Constitutional Appears: Chronically Ill - Head Exam Head Exam: NORMAL INSPECTION - Eye Exam Eye Exam: PERRL - ENT Exam ENT Exam: Normal Exam - Neck Exam Neck Exam: Normal Inspection - Respiratory Exam Respiratory Exam: Decreased Breath Sounds (at bases) - Cardiovascular Exam Cardiovascular Exam: REGULAR RHYTHM - GI/Abdominal Exam GI & Abdominal Exam: Soft, Normal Bowel Sounds - Extremities Exam Additional comments: edema L/E U/E - Back Exam Back Exam: NORMAL INSPECTION (generalized weakness) - Neurological Exam Neurological Exam: Awake Additional comments: Alert x 2, confused - Psychiatric Exam Additional comments: calm - Skin Skin Exam: Warm Assessment and Plan (1) Respiratory distress Status: Acute (2) Pleural effusion Status: Acute (3) Atelectasis of both lungs Status: Resolved (4) Atrial fibrillation with rapid ventricular response Status: Resolved - Assessment and Plan (Free Text) Plan: on TPN , f/u ID , Platelet 122 , f/u coagulation profile for Thoracentesis
--- NOTE | 2017-08-12 17:14 | CP.PCM.PN ---
Subjective - Date & Time of Evaluation Date of Evaluation: 08/12/17 Time of Evaluation: 17:10 - Subjective Subjective: I D NOTE WAS NOT IN FORMED OF CONSULT TILL TODAY PATIENT EXAMINED ,CHART REVIEWED FULL CONSULT TO FOLLOW HAS POSITVE URINE CULTURE FOR ENTEROCOCCUS FAECALIS ON ROCEPHEN (SHOULD NOT FULLY COVER IN VIVO) HAVE STARTED UNASYN(BEST MICS) ADDED CLINDAMYCIN FOR PULMONARY COVERAGE Objective - Vital Signs/Intake and Output Vital Signs (last 24 hours): Temp Pulse Resp BP Pulse Ox 97.3 F L 75 18 135/75 97 08/12/17 16:13 08/12/17 16:35 08/12/17 16:13 08/12/17 16:35 08/12/17 16:13 - Medications Medications: Current Medications Acetaminophen (Tylenol 325mg Tab) 650 mg PO Q6 PRN PRN Reason: Other Last Admin: 08/12/17 16:34 Dose: 650 mg Aspirin (Aspirin) 325 mg PO DAILY [facility] Last Admin: 08/12/17 09:45 Dose: 325 mg Atorvastatin Calcium (Lipitor) 20 mg PO DAILY [facility] Last Admin: 08/12/17 09:38 Dose: 20 mg Carvedilol (Coreg) 12.5 mg PO Q12 [facility] Last Admin: 08/12/17 09:38 Dose: 12.5 mg Diltiazem HCl (Cardizem) 30 mg PO QID [facility] Last Admin: 08/12/17 16:35 Dose: 30 mg Fat Emulsion Intravenous (Intralipid 20%) 250 mls @ 10.417 mls/hr IV .Q24H [facility] Stop: 08/13/17 08:59 Last Admin: 08/12/17 09:44 Dose: 10.417 mls/hr Ampicillin Sodium/Sulbactam (Sodium 1.5 gm/ Sodium Chloride) 100 mls @ 100 mls/ hr IVPB Q6 [facility] PRN Reason: Protocol Clindamycin Phosphate 600 mg/ (Sodium Chloride) 54 mls @ 54 mls/hr IVPB Q12 [facility] PRN Reason: Protocol Insulin Human Regular (Humulin R) 0 units SC ACHS [facility] PRN Reason: Protocol Last Admin: 08/12/17 16:36 Dose: 3 unit Megestrol Acetate (Megace) 20 mg PO DAILY [facility] Last Admin: 08/12/17 09:43 Dose: 20 mg Memantine (Namenda) 5 mg PO BID [facility] Last Admin: 08/12/17 09:43 Dose: 5 mg - Labs Labs: 08/12/17 15:45 08/12/17 15:45 PT 18.5 Seconds (9.8-13.1) H 08/04/17 12:55 INR 1.7 (0.9-1.2) H 08/04/17 12:55 APTT 37.5 Seconds (25.6-37.1) H 08/04/17 12:55
[2017-08-12] MEDS: Clindamycin 600mg/50ml NS 600 MG/50 ML BAG IVPB SCH (21:52)
[2017-08-13 06:11] LABS: BASO % 0.1 % (0.0-2.0); EOS % 0.2 % (0.0-4.0); HEMOGLOBIN 13.3 g/dL (12.0-16.0); LYMPH # 0.5 K/uL (1.0-4.3); LYMPH % 4.2 % (20.0-40.0); MEAN CELL VOLUME 93.5 fl (81.0-99.0); MEAN CORPUSCULAR HEMOGLOBIN 30.6 pg (27.0-31.0); MEAN CORPUSCULAR HGB CONC 32.7 g/dL (33.0-37.0); MEAN PLATELET VOLUME 9.1 fl (7.2-11.7); MONO # 0.9 K/uL (0.0-0.8); MONO % 7.3 % (0.0-10.0); NEUT # 10.9 K/uL (1.8-7.0); NEUT % 88.2 % (50.0-75.0); NRBC % 0.1 % (0.0-0.0); PLATELET COUNT 140 K/uL (130-400); RBC 4.36 Mil/uL (3.80-5.20); RED CELL DISTRIBUTION WIDTH 15.7 % (11.5-14.5); WHITE BLOOD COUNT 12.4 K/uL (4.8-10.8)
[2017-08-13 06:16] LABS: INR 1.3 (0.9-1.2); PARTIAL THROMBOPLASTIN TIME 36.4 Seconds (25.6-37.1)
[2017-08-13] MEDS: Insulin Regular 100 units/ml SC SCH ×4 (06:33→21:59)
[2017-08-13 06:34] LABS: ALB/GLOB RATIO 0.8 (1.0-2.1); ALBUMIN 1.9 g/dL (3.5-5.0); ALT/SGPT 69 U/L (9-52); AST/SGOT 45 U/L (14-36); BLOOD UREA NITROGEN 25 mg/dl (7-17); CALCIUM 7.8 mg/dL (8.4-10.2); GFR AFRICAN-AMERICAN > 60; GFR NON-AFRICAN AMERICAN > 60
[2017-08-13] MEDS: Clindamycin 600mg/50ml NS 600 MG/50 ML BAG IVPB SCH ×2 (09:05→21:47)
--- NOTE | 2017-08-13 09:33 | CP.PCM.PN ---
Subjective - Date & Time of Evaluation Date of Evaluation: 08/13/17 Time of Evaluation: 09:29 - Subjective Subjective: there is no mchange in pt's condition. She still refuses to eat, and is very weak. Nurse migdalia rangel tat her stools were very dark today. ave ordered stools for occult blood. She is to have a thoracentesis today. Objective - Vital Signs/Intake and Output Vital Signs (last 24 hours): Temp Pulse Resp BP Pulse Ox 98.2 F 73 18 115/76 96 08/13/17 08:00 08/13/17 09:03 08/13/17 09:03 08/13/17 09:03 08/13/17 09:03 - Medications Medications: Current Medications Acetaminophen (Tylenol 325mg Tab) 650 mg PO Q6 PRN PRN Reason: Other Last Admin: 08/12/17 23:48 Dose: 650 mg Aspirin (Aspirin) 325 mg PO DAILY [facility] Last Admin: 08/13/17 09:01 Dose: 325 mg Atorvastatin Calcium (Lipitor) 20 mg PO DAILY [facility] Last Admin: 08/13/17 09:04 Dose: 20 mg Carvedilol (Coreg) 12.5 mg PO Q12 [facility] Last Admin: 08/13/17 09:01 Dose: 12.5 mg Diltiazem HCl (Cardizem) 30 mg PO QID [facility] Last Admin: 08/13/17 09:03 Dose: 30 mg Ampicillin Sodium/Sulbactam (Sodium 1.5 gm/ Sodium Chloride) 100 mls @ 100 mls/ hr IVPB Q6 [facility] PRN Reason: Protocol Last Admin: 08/13/17 09:06 Dose: 100 mls/hr Clindamycin Phosphate (Cleocin In Normal Saline) 600 mg in 50 mls @ 50 mls/hr IVPB Q12 [facility] PRN Reason: Protocol Last Admin: 08/13/17 09:05 Dose: 50 mls/hr Insulin Human Regular (Humulin R) 0 units SC ACHS [facility] PRN Reason: Protocol Last Admin: 08/13/17 06:33 Dose: 1 unit Megestrol Acetate (Megace) 20 mg PO DAILY [facility] Last Admin: 08/13/17 09:01 Dose: 20 mg Memantine (Namenda) 5 mg PO BID [facility] Last Admin: 08/13/17 09:04 Dose: 5 mg - Labs Labs: 08/13/17 04:20 08/13/17 04:20 PT 14.0 Seconds (9.8-13.1) H 08/13/17 04:20 INR 1.3 (0.9-1.2) H 08/13/17 04:20 APTT 36.4 Seconds (25.6-37.1) 08/13/17 04:20
[2017-08-13 12:33] LABS: ANISOCYTOSIS SLIGHT; BANDS 2 % (0-2); LYMPHOCYTE 5 % (20-50); MONOCYTE 6 % (0-10); NEUTROPHIL 87 % (42-75); PLATELET ESTIMATE NORMAL (NORMAL); TOTAL CELLS COUNTED 100
[2017-08-13 12:49] LABS: OVALOCYTES SLIGHT; SCHISTOCYTES SLIGHT; TEARDROP CELLS SLIGHT
[2017-08-13 12:50] LABS: BURR CELLS SLIGHT
--- NOTE | 2017-08-13 15:09 | CP.PCM.PN ---
Subjective - Date & Time of Evaluation Date of Evaluation: 08/13/17 Time of Evaluation: 12:20 - Subjective Subjective: F/U Respiratory Distress. no AD , no SOB , apetite poor but increased today as per family at bedside Objective - Vital Signs/Intake and Output Vital Signs (last 24 hours): Temp Pulse Resp BP Pulse Ox 97.4 F L 63 18 92/52 L 98 08/13/17 12:00 08/13/17 15:07 08/13/17 15:07 08/13/17 15:07 08/13/17 15:07 - Medications Medications: Current Medications Acetaminophen (Tylenol 325mg Tab) 650 mg PO Q6 PRN PRN Reason: Other Last Admin: 08/12/17 23:48 Dose: 650 mg Aspirin (Aspirin) 325 mg PO DAILY [facility] Last Admin: 08/13/17 09:01 Dose: 325 mg Atorvastatin Calcium (Lipitor) 20 mg PO DAILY [facility] Last Admin: 08/13/17 09:04 Dose: 20 mg Carvedilol (Coreg) 12.5 mg PO Q12 [facility] Last Admin: 08/13/17 09:01 Dose: 12.5 mg Diltiazem HCl (Cardizem) 30 mg PO QID [facility] Last Admin: 08/13/17 15:07 Dose: Not Given Ampicillin Sodium/Sulbactam (Sodium 1.5 gm/ Sodium Chloride) 100 mls @ 100 mls/ hr IVPB Q6 [facility] PRN Reason: Protocol Last Admin: 08/13/17 09:06 Dose: 100 mls/hr Clindamycin Phosphate (Cleocin In Normal Saline) 600 mg in 50 mls @ 50 mls/hr IVPB Q12 [facility] PRN Reason: Protocol Last Admin: 08/13/17 09:05 Dose: 50 mls/hr Insulin Human Regular (Humulin R) 0 units SC ACHS [facility] PRN Reason: Protocol Last Admin: 08/13/17 15:07 Dose: Not Given Megestrol Acetate (Megace) 20 mg PO DAILY [facility] Last Admin: 08/13/17 09:01 Dose: 20 mg Memantine (Namenda) 5 mg PO BID [facility] Last Admin: 08/13/17 09:04 Dose: 5 mg - Labs Labs: 08/13/17 04:20 08/13/17 04:20 PT 14.0 Seconds (9.8-13.1) H 04/03/18 04:20 INR 1.3 (0.9-1.2) H 08/13/17 04:20 APTT 36.4 Seconds (25.6-37.1) 08/13/17 04:20 - Constitutional Appears: Chronically Ill - Head Exam Head Exam: NORMAL INSPECTION - Eye Exam Eye Exam: PERRL - ENT Exam ENT Exam: Normal Exam - Neck Exam Neck Exam: Normal Inspection - Respiratory Exam Respiratory Exam: Decreased Breath Sounds (at bases) - Cardiovascular Exam Cardiovascular Exam: REGULAR RHYTHM - GI/Abdominal Exam GI & Abdominal Exam: Soft, Normal Bowel Sounds - Extremities Exam Additional comments: Edema L/E, U/E - Neurological Exam Neurological Exam: Alert, Awake Additional comments: Oriented x2, confused. - Psychiatric Exam Additional comments: Calm - Skin Skin Exam: Warm Assessment and Plan (1) Respiratory distress Status: Acute (2) Pleural effusion Status: Acute (3) Atelectasis of both lungs Status: Resolved (4) Atrial fibrillation with rapid ventricular response Status: Resolved - Assessment and Plan (Free Text) Plan: IR will do Dx Thoracentesis , Leukocytosis and elevated markers for malignancy
--- NOTE | 2017-08-13 16:29 | CP.PCM.PN ---
<Kirby Parrish - Last Filed: 08/13/17 16:27> Subjective - Date & Time of Evaluation Date of Evaluation: 08/13/17 Time of Evaluation: 10:25 - Subjective Subjective: Patient seen and examined at bedside this morning. There are no acute events overnight, NAD. Patient complaining of mild lower extremity pain relieved w/ tylenol. Patient on PPN. Son was notified regarding possible PEG placement, says he will think about it. Objective - Vital Signs/Intake and Output Vital Signs (last 24 hours): Temp Pulse Resp BP Pulse Ox 97.0 F L 76 18 101/64 95 08/13/17 15:43 08/13/17 15:43 08/13/17 15:43 08/13/17 15:43 08/13/17 15:43 - Medications Medications: Current Medications Acetaminophen (Tylenol 325mg Tab) 650 mg PO Q6 PRN PRN Reason: Other Last Admin: 08/12/17 23:48 Dose: 650 mg Aspirin (Aspirin) 325 mg PO DAILY [facility] Last Admin: 08/13/17 09:01 Dose: 325 mg Atorvastatin Calcium (Lipitor) 20 mg PO DAILY [facility] Last Admin: 08/13/17 09:04 Dose: 20 mg Carvedilol (Coreg) 12.5 mg PO Q12 [facility] Last Admin: 08/13/17 09:01 Dose: 12.5 mg Diltiazem HCl (Cardizem) 30 mg PO QID [facility] Last Admin: 08/13/17 15:07 Dose: Not Given Ampicillin Sodium/Sulbactam (Sodium 1.5 gm/ Sodium Chloride) 100 mls @ 100 mls/ hr IVPB Q6 [facility] PRN Reason: Protocol Last Admin: 08/13/17 09:06 Dose: 100 mls/hr Clindamycin Phosphate (Cleocin In Normal Saline) 600 mg in 50 mls @ 50 mls/hr IVPB Q12 [facility] PRN Reason: Protocol Last Admin: 08/13/17 09:05 Dose: 50 mls/hr Insulin Human Regular (Humulin R) 0 units SC ACHS [facility] PRN Reason: Protocol Last Admin: 08/13/17 15:07 Dose: Not Given Megestrol Acetate (Megace) 20 mg PO DAILY [facility] Last Admin: 08/13/17 09:01 Dose: 20 mg Memantine (Namenda) 5 mg PO BID [facility] Last Admin: 08/13/17 09:04 Dose: 5 mg - Labs Labs: 08/13/17 04:20 08/13/17 04:20 PT 14.0 Seconds (9.8-13.1) H 08/13/17 04:20 INR 1.3 (0.9-1.2) H 08/13/17 04:20 APTT 36.4 Seconds (25.6-37.1) 08/13/17 04:20 - Constitutional Appears: Non-toxic, No Acute Distress - Head Exam Head Exam: ATRAUMATIC, NORMAL INSPECTION, NORMOCEPHALIC - Eye Exam Eye Exam: Normal appearance - ENT Exam ENT Exam: Mucous Membranes Moist - Neck Exam Neck Exam: Full ROM. absent: Tenderness - Respiratory Exam Respiratory Exam: Clear to Ausculation Bilateral. absent: Accessory Muscle Use - Cardiovascular Exam Cardiovascular Exam: REGULAR RHYTHM. absent: Tachycardia - GI/Abdominal Exam GI & Abdominal Exam: Soft, Normal Bowel Sounds. absent: Distended, Tenderness - Extremities Exam Extremities Exam: absent: Calf Tenderness, Pedal Edema, Tenderness - Neurological Exam Neurological Exam: Alert, Awake - Skin Skin Exam: Dry, Intact, Normal Color, Warm Assessment and Plan (1) Afib Status: Acute (2) Ascites Status: Acute (3) Dementia Status: Chronic (4) Elevated CA 19-9 level Status: Acute (5) Elevated CA-125 Status: Acute (6) Elevated CEA Status: Acute (7) NSTEMI (non-ST elevated myocardial infarction) Status: Acute (8) Pleural effusion Status: Acute - Assessment and Plan (Free Text) Plan: c/w present management Cardiology recommendations appreciated Pulmonology recommednations appreciated Infectious disease recommendations appreciated Heme/Onc recommendations appreciated GI consult ordered for possible PEG placement thoracocentesis today f/u fluid cytology c/w PPN clindamycin 600 mg IV Q12h day 2 unasyn 1.5 gm IV Q6h day 2 <Kang Beck - Last Filed: 08/15/17 20:19> Objective - Vital Signs/Intake and Output Vital Signs (last 24 hours): Temp Pulse Resp BP Pulse Ox 97.6 F 73 16 99/57 L 99 08/15/17 18:58 08/15/17 18:58 08/15/17 18:58 08/15/17 18:58 08/15/17 18:58 Intake and Output: 08/15/17 08/16/17 18:59 06:59 Intake Total 730 Balance 730 - Medications Medications: Current Medications Acetaminophen (Tylenol 325mg Tab) 650 mg PO Q6 PRN PRN Reason: Other Last Admin: 08/13/17 18:15 Dose: 650 mg Aspirin (Aspirin) 325 mg PO DAILY [facility] Last Admin: 08/15/17 11:00 Dose: 325 mg Atorvastatin Calcium (Lipitor) 20 mg PO DAILY [facility] Last Admin: 08/15/17 11:04 Dose: 20 mg Carvedilol (Coreg) 12.5 mg PO Q12 [facility] Last Admin: 08/15/17 11:02 Dose: 12.5 mg Diltiazem HCl (Cardizem) 30 mg PO QID [facility] Last Admin: 08/15/17 16:30 Dose: Not Given Ampicillin Sodium/Sulbactam (Sodium 1.5 gm/ Sodium Chloride) 100 mls @ 100 mls/ hr IVPB Q6 [facility] PRN Reason: Protocol Last Admin: 08/15/17 16:36 Dose: 100 mls/hr Clindamycin Phosphate (Cleocin In Normal Saline) 600 mg in 50 mls @ 50 mls/hr IVPB Q12 [facility] PRN Reason: Protocol Last Admin: 08/15/17 11:02 Dose: 50 mls/hr Dextrose/Sodium Chloride (Dextrose 5%/0.45% Ns 1000 Ml) 1,000 mls @ 60 mls/hr IV .[id number] [facility] Stop: 08/16/17 08:44 Last Admin: 08/15/17 11:04 Dose: 60 mls/hr Insulin Human Regular (Humulin R) 0 units SC ACHS [facility] PRN Reason: Protocol Last Admin: 08/15/17 16:32 Dose: 1 unit Megestrol Acetate (Megace) 20 mg PO DAILY [facility] Last Admin: 08/15/17 11:04 Dose: 20 mg Memantine (Namenda) 5 mg PO BID [facility] Last Admin: 08/15/17 16:34 Dose: 5 mg - Labs Labs: 08/15/17 05:00 08/15/17 05:00 PT 14.0 Seconds (9.8-13.1) H 08/13/17 04:20 INR 1.3 (0.9-1.2) H 08/13/17 04:20 APTT 36.4 Seconds (25.6-37.1) 08/13/17 04:20 Assessment and Plan (1) Atrial fibrillation with rapid ventricular response Status: Resolved (2) NSTEMI (non-ST elevated myocardial infarction) Status: Acute (3) Dementia Status: Chronic (4) Hyperglycemia Status: Acute (5) Abnormal liver enzymes Status: Acute (6) Pleural effusion Status: Acute (7) Ascites Status: Acute (8) Elevated CEA Status: Acute (9) Elevated CA-125 Status: Acute (10) Elevated CA 19-9 level Status: Acute (11) Leukocytosis Status: Acute - Assessment and Plan (Free Text) Plan: I was present during evaluation and discussed with Dr Parrish re Plans of care and mgt. Kang Beck M.D.
[2017-08-14] MEDS: Insulin Regular 100 units/ml SC SCH ×4 (06:46→21:41)
--- NOTE | 2017-08-14 08:39 | CP.PCM.PN ---
Subjective - Date & Time of Evaluation Date of Evaluation: 08/14/17 Time of Evaluation: 08:34 - Subjective Subjective: Pt will go for a diagnostic thoracentesis today. She had a past h/o breast cancer for which she was on arimidex. Could this be recurrent or metastasis from that cancer? I think the thoracentesis is critical. Appetite is still very poor. Objective - Vital Signs/Intake and Output Vital Signs (last 24 hours): Temp Pulse Resp BP Pulse Ox 97.6 F 81 20 148/77 98 08/14/17 08:32 08/14/17 08:32 08/14/17 08:32 08/14/17 08:32 08/14/17 08:32 - Medications Medications: Current Medications Acetaminophen (Tylenol 325mg Tab) 650 mg PO Q6 PRN PRN Reason: Other Last Admin: 08/13/17 18:15 Dose: 650 mg Aspirin (Aspirin) 325 mg PO DAILY [facility] Last Admin: 08/13/17 09:01 Dose: 325 mg Atorvastatin Calcium (Lipitor) 20 mg PO DAILY [facility] Last Admin: 08/13/17 09:04 Dose: 20 mg Carvedilol (Coreg) 12.5 mg PO Q12 [facility] Last Admin: 08/13/17 21:48 Dose: 12.5 mg Diltiazem HCl (Cardizem) 30 mg PO QID [facility] Last Admin: 08/13/17 21:49 Dose: 30 mg Ampicillin Sodium/Sulbactam (Sodium 1.5 gm/ Sodium Chloride) 100 mls @ 100 mls/ hr IVPB Q6 [facility] PRN Reason: Protocol Last Admin: 08/14/17 03:56 Dose: 100 mls/hr Clindamycin Phosphate (Cleocin In Normal Saline) 600 mg in 50 mls @ 50 mls/hr IVPB Q12 [facility] PRN Reason: Protocol Last Admin: 08/13/17 21:47 Dose: 50 mls/hr Insulin Human Regular (Humulin R) 0 units SC ACHS [facility] PRN Reason: Protocol Last Admin: 08/14/17 06:46 Dose: Not Given Megestrol Acetate (Megace) 20 mg PO DAILY [facility] Last Admin: 08/13/17 09:01 Dose: 20 mg Memantine (Namenda) 5 mg PO BID [facility] Last Admin: 08/13/17 18:08 Dose: 5 mg - Labs Labs: 08/13/17 04:20 08/13/17 04:20 PT 14.0 Seconds (9.8-13.1) H 08/13/17 04:20 INR 1.3 (0.9-1.2) H 08/13/17 04:20 APTT 36.4 Seconds (25.6-37.1) 08/13/17 04:20
[2017-08-14] MEDS: Clindamycin 600mg/50ml NS 600 MG/50 ML BAG IVPB SCH ×2 (10:50→21:26)
[2017-08-14 10:54] LABS: BASO % 0.2 % (0.0-2.0); EOS % 0.2 % (0.0-4.0); HEMOGLOBIN 14.4 g/dL (12.0-16.0); LYMPH # 0.6 K/uL (1.0-4.3); MEAN CORPUSCULAR HEMOGLOBIN 30.1 pg (27.0-31.0); MEAN CORPUSCULAR HGB CONC 32.4 g/dL (33.0-37.0); MEAN PLATELET VOLUME 8.8 fl (7.2-11.7); MONO % 6.8 % (0.0-10.0); NEUT # 13.1 K/uL (1.8-7.0); NEUT % 88.8 % (50.0-75.0); NRBC % 0.1 % (0.0-0.0); RBC 4.77 Mil/uL (3.80-5.20); RED CELL DISTRIBUTION WIDTH 16.1 % (11.5-14.5); WHITE BLOOD COUNT 14.8 K/uL (4.8-10.8)
[2017-08-14 11:58] LABS: ALB/GLOB RATIO 0.8 (1.0-2.1); ALBUMIN 2.1 g/dL (3.5-5.0); ALT/SGPT 67 U/L (9-52); AST/SGOT 47 U/L (14-36); BLOOD UREA NITROGEN 17 mg/dl (7-17); CALCIUM 7.9 mg/dL (8.4-10.2); GFR AFRICAN-AMERICAN > 60; GFR NON-AFRICAN AMERICAN > 60
[2017-08-14] MEDS ORDERED: Lidocaine Hydrochloride 1% 10 ML ONE (13:29)
--- NOTE | 2017-08-14 13:46 | PCM.SURG1 ---
Surgeon's Initial Post Op Note - Surgeon's Notes Surgeon: Sea Mckee MD Bottle Blower: NONE Type of Anesthesia: Local Pre-Operative Diagnosis: Right pleural effusion Operative Findings: US showed a small right pleural effusion Post-Operative Diagnosis: Right pleural effusion Operation Performed: US guided right thoracentesis Specimen/Specimens Removed: 300 cc of straw colored fluid Estimated Blood Loss: EBL {In ML}: 0 Blood Products Given: N/A Drains Used: No Drains Post-Op Condition: Fair Date of Surgery/Procedure: 08/14/17 Time of Surgery/Procedure: 13:40
--- NOTE | 2017-08-14 14:12 | CP.PCM.PN ---
<Kirby Parrish - Last Filed: 08/14/17 14:10> Subjective - Date & Time of Evaluation Date of Evaluation: 08/14/17 Time of Evaluation: 09:40 - Subjective Subjective: Patient seen and examined at bedside this morning. There are no acute events overnight, NAD. Patient still has poor appetite. Patient on PPN. Son agreeable for PEG placement after thoracocentesis. Objective - Vital Signs/Intake and Output Vital Signs (last 24 hours): Temp Pulse Resp BP Pulse Ox 98.0 F 79 18 120/55 L 96 08/14/17 13:50 08/14/17 13:50 08/14/17 13:50 08/14/17 13:50 08/14/17 13:50 - Medications Medications: Current Medications Acetaminophen (Tylenol 325mg Tab) 650 mg PO Q6 PRN PRN Reason: Other Last Admin: 08/13/17 18:15 Dose: 650 mg Aspirin (Aspirin) 325 mg PO DAILY [facility] Last Admin: 08/13/17 09:01 Dose: 325 mg Atorvastatin Calcium (Lipitor) 20 mg PO DAILY [facility] Last Admin: 08/14/17 10:50 Dose: 20 mg Carvedilol (Coreg) 12.5 mg PO Q12 [facility] Last Admin: 08/14/17 10:51 Dose: 12.5 mg Diltiazem HCl (Cardizem) 30 mg PO QID [facility] Last Admin: 08/14/17 10:51 Dose: 30 mg Ampicillin Sodium/Sulbactam (Sodium 1.5 gm/ Sodium Chloride) 100 mls @ 100 mls/ hr IVPB Q6 [facility] PRN Reason: Protocol Last Admin: 08/14/17 10:49 Dose: 100 mls/hr Clindamycin Phosphate (Cleocin In Normal Saline) 600 mg in 50 mls @ 50 mls/hr IVPB Q12 [facility] PRN Reason: Protocol Last Admin: 08/14/17 10:50 Dose: 50 mls/hr Insulin Human Regular (Humulin R) 0 units SC ACHS [facility] PRN Reason: Protocol Last Admin: 08/14/17 06:46 Dose: Not Given Megestrol Acetate (Megace) 20 mg PO DAILY [facility] Last Admin: 08/14/17 10:50 Dose: 20 mg Memantine (Namenda) 5 mg PO BID [facility] Last Admin: 08/14/17 10:51 Dose: 5 mg - Labs Labs: 08/14/17 10:10 08/14/17 10:10 PT 14.0 Seconds (9.8-13.1) H 08/13/17 04:20 INR 1.3 (0.9-1.2) H 08/13/17 04:20 APTT 36.4 Seconds (25.6-37.1) 08/13/17 04:20 - Constitutional Appears: Non-toxic, No Acute Distress, Cachectic - Head Exam Head Exam: ATRAUMATIC, NORMAL INSPECTION, NORMOCEPHALIC - Eye Exam Eye Exam: Normal appearance - ENT Exam ENT Exam: Mucous Membranes Dry - Neck Exam Neck Exam: Full ROM. absent: Tenderness - Respiratory Exam Respiratory Exam: Clear to Ausculation Bilateral. absent: Accessory Muscle Use , Decreased Breath Sounds, Rales, Rhonchi, Wheezes, Respiratory Distress - Cardiovascular Exam Cardiovascular Exam: REGULAR RHYTHM. absent: Tachycardia - GI/Abdominal Exam GI & Abdominal Exam: Soft, Normal Bowel Sounds. absent: Distended, Tenderness - Extremities Exam Extremities Exam: absent: Calf Tenderness, Pedal Edema, Tenderness - Neurological Exam Neurological Exam: Alert, Awake - Skin Skin Exam: Dry, Intact, Normal Color, Warm Assessment and Plan (1) Afib Status: Acute (2) Ascites Status: Acute (3) Dementia Status: Chronic (4) Elevated CA 19-9 level Status: Acute (5) Elevated CA-125 Status: Acute (6) Elevated CEA Status: Acute (7) NSTEMI (non-ST elevated myocardial infarction) Status: Acute (8) Pleural effusion Status: Acute - Assessment and Plan (Free Text) Plan: c/w present management Cardiology recommendations appreciated Pulmonology recommednations appreciated Infectious disease recommendations appreciated Heme/Onc recommendations appreciated GI consult ordered for possible PEG placement thoracocentesis done, drained 300cc straw colored fluid f/u fluid cytology f/u breast U/S c/w PPN clindamycin 600 mg IV Q12h day 3 unasyn 1.5 gm IV Q6h day 3 transfer to [facility] <Kang Beck - Last Filed: 08/15/17 20:20> Objective - Vital Signs/Intake and Output Vital Signs (last 24 hours): Temp Pulse Resp BP Pulse Ox 97.6 F 73 16 99/57 L 99 08/15/17 18:58 08/15/17 18:58 08/15/17 18:58 08/15/17 18:58 08/15/17 18:58 Intake and Output: 08/15/17 08/16/17 18:59 06:59 Intake Total 730 Balance 730 - Medications Medications: Current Medications Acetaminophen (Tylenol 325mg Tab) 650 mg PO Q6 PRN PRN Reason: Other Last Admin: 08/13/17 18:15 Dose: 650 mg Aspirin (Aspirin) 325 mg PO DAILY [facility] Last Admin: 08/15/17 11:00 Dose: 325 mg Atorvastatin Calcium (Lipitor) 20 mg PO DAILY [facility] Last Admin: 08/15/17 11:04 Dose: 20 mg Carvedilol (Coreg) 12.5 mg PO Q12 [facility] Last Admin: 08/15/17 11:02 Dose: 12.5 mg Diltiazem HCl (Cardizem) 30 mg PO QID [facility] Last Admin: 08/15/17 16:30 Dose: Not Given Ampicillin Sodium/Sulbactam (Sodium 1.5 gm/ Sodium Chloride) 100 mls @ 100 mls/ hr IVPB Q6 [facility] PRN Reason: Protocol Last Admin: 08/15/17 16:36 Dose: 100 mls/hr Clindamycin Phosphate (Cleocin In Normal Saline) 600 mg in 50 mls @ 50 mls/hr IVPB Q12 [facility] PRN Reason: Protocol Last Admin: 08/15/17 11:02 Dose: 50 mls/hr Dextrose/Sodium Chloride (Dextrose 5%/0.45% Ns 1000 Ml) 1,000 mls @ 60 mls/hr IV .[id number] [facility] Stop: 08/16/17 08:44 Last Admin: 08/15/17 11:04 Dose: 60 mls/hr Insulin Human Regular (Humulin R) 0 units SC ACHS [facility] PRN Reason: Protocol Last Admin: 08/15/17 16:32 Dose: 1 unit Megestrol Acetate (Megace) 20 mg PO DAILY [facility] Last Admin: 08/15/17 11:04 Dose: 20 mg Memantine (Namenda) 5 mg PO BID [facility] Last Admin: 08/15/17 16:34 Dose: 5 mg - Labs Labs: 08/15/17 05:00 08/15/17 05:00 PT 14.0 Seconds (9.8-13.1) H 08/13/17 04:20 INR 1.3 (0.9-1.2) H 08/13/17 04:20 APTT 36.4 Seconds (25.6-37.1) 08/13/17 04:20 Assessment and Plan (1) Atrial fibrillation with rapid ventricular response Status: Resolved (2) NSTEMI (non-ST elevated myocardial infarction) Status: Acute (3) Dementia Status: Chronic (4) Hyperglycemia Status: Acute (5) Abnormal liver enzymes Status: Acute (6) Pleural effusion Status: Acute (7) Ascites Status: Acute (8) Elevated CEA Status: Acute (9) Elevated CA-125 Status: Acute (10) Elevated CA 19-9 level Status: Acute (11) Leukocytosis Status: Acute - Assessment and Plan (Free Text) Plan: I was present during evaluation and discussed with Dr Francois finnegan plans of care and tx. Kang Beck M.D.
[2017-08-14 14:20] LABS: BODY FLUID TYPE PLEURAL/THORACENTESI
--- NOTE | 2017-08-14 14:59 | PQF GENQUE ---
Dr. Beck, Is there an associated dx, to go along with the use of Unasyn? i.e. UTI etc OR: Disagree OR: Other explanation of clinical finding 2 ID note: 4 ID; + URINE CULTURE FOR ENTEROCOCCUS FAECALIS ON ROCEPHEN (SHOULD NOT FULLY COVER IN VIVO) HAVE STARTED UNASYN(BEST MICS) ADDED CLINDA FOR PULM COVERAGE This form is a permanent part of the medical record Clarification of your documentation is requested to better reflect the severity of illness and intensity of treatment of your patient. Indicators present [] Specify: [] [] Specify: [] [] Specify: [] [] Specify: [] Location in the medical record that reflects the above clinical findings: [] Treatment Provided: [] PHYSICIAN'S RESPONSE Based on your medical judgment of the clinical indicators outlined above please clarify the following: [] Practitioner response [] If unable to determine, please check the box, sign and date. Present On Admission (POA) Indicator: [] Present at the time of admission [] Not present at the time of admission [] Clinically Undetermined In responding to this query, please exercise your independent professional judgment. The fact that a question is asked does not imply that any particular answer is desired or expected. Thank you for your clarification on this documentation. If you have any questions please call. * Thank you, Anastasiia Gan RN ext. #[phone] MTDD
--- NOTE | 2017-08-14 16:24 | RAD ---
PROCEDURE: CHEST RADIOGRAPH, 1 VIEW HISTORY: Status post right thoracentesis COMPARISON: 08/07/2017 FINDINGS: LUNGS: There is partial clearance of the right basal opacification compatible with interval right pleural fluid removal/thoracentesis. Residual opacity consistent with residual pleural effusion and compressive atelectasis and or infiltrate here noted - findings however have improved since the prior exam. The obscuration left hemidiaphragm consistent with left pleural effusion and compressive atelectasis with or without concomitant infiltrate is renoted. No interval change in left lung base noted. PLEURA: As above. No pneumothorax seen CARDIOVASCULAR: Cardiomegaly- unchanged. OSSEOUS STRUCTURES: Scoliosis -similar VISUALIZED UPPER ABDOMEN: Normal. OTHER FINDINGS: None. IMPRESSION: Interval bold right thoracentesis/ inferred right pleural effusion. Improved aeration suggested. Residual atelectasis and or infiltrate with smaller right pleural effusion now suggested. Left basal findings similar Cardiomegaly -similar
[2017-08-14 16:43] LABS: BF GROSS APPEARANCE CLEAR (CLEAR)
[2017-08-14 16:44] LABS: BODY FLUID MONO/MACROPHAGE 24 % (0-0); BODY FLUID TOTAL COUNT 100 (0-0)
[2017-08-15 06:29] LABS: HEMOGLOBIN 13.5 g/dL (12.0-16.0); MEAN CELL VOLUME 94.2 fl (81.0-99.0); MEAN CORPUSCULAR HEMOGLOBIN 30.4 pg (27.0-31.0); MEAN CORPUSCULAR HGB CONC 32.3 g/dL (33.0-37.0); RBC 4.42 Mil/uL (3.80-5.20); WHITE BLOOD COUNT 12.9 K/uL (4.8-10.8)
[2017-08-15 06:40] LABS: ALB/GLOB RATIO 0.8 (1.0-2.1); ALBUMIN 1.9 g/dL (3.5-5.0); ALT/SGPT 65 U/L (9-52); AST/SGOT 44 U/L (14-36); BLOOD UREA NITROGEN 16 mg/dl (7-17); CALCIUM 7.4 mg/dL (8.4-10.2); GFR AFRICAN-AMERICAN > 60; GFR NON-AFRICAN AMERICAN > 60
[2017-08-15] MEDS: Insulin Regular 100 units/ml SC SCH ×4 (06:42→21:52)
--- NOTE | 2017-08-15 07:08 | CON ---
REFERRED BY: Kang Beck MD HISTORY OF PRESENT ILLNESS: This is a very pleasant 77-year-old woman who is well known to me from many years as a patient of mine who I have not seen her for sometime, who has been recently diagnosed with dementia, was admitted with generalized weakness, fatigue, diminished appetite, and was referred also for elevation of her liver enzymes and for the possibility of a PEG. Apparently, the patient, according to her son who is at the bedside who is power of city attorney has been getting more more confused with her dementia and her appetite has been poor. Here in the hospital, they states she has barely been eating anything and there is a question about the need for percutaneous endoscopic gastrostomy tube insertion. There is also a workup going on for any evidence of malignancy as she has abnormal tumor markers, although the alpha fetoprotein was only 1.6. The other tumor markers were reported has been elevated including a CEA of 8.4 and a CA125 of 135. There has been no reported nausea or vomiting. She has no abdominal pain or discomfort. There has been no blood per rectum, melena, or any loose stools. MEDICATIONS: Her medications here were reviewed. ALLERGIES: SHE HAS NO KNOWN DRUG ALLERGIES. PAST MEDICAL HISTORY: Dementia. She has a known history of diverticular disease, hyperlipidemia, and diminished appetite. PAST SURGICAL HISTORY: Noncontributory, although she did have a cholecystectomy. FAMILY HISTORY: Noncontributory. SOCIAL HISTORY: No alcohol, tobacco, or drug use. PHYSICAL EXAMINATION: GENERAL: Well-developed and well-nourished elderly woman who is pleasant, awake, alert and oriented to self, but not to time or place. VITAL SIGNS: Stable. She is afebrile. ABDOMEN: Soft with good bowel sounds, nontender, and nondistended. No hepatosplenomegaly. No palpable masses or lesions. LABORATORY DATA: Reviewed. White count 14,000. LFTs, she has a transaminitis with an elevation of AST and ALT which has been stable over the last few days despite 2 times normal. Her alk phos is little over 200. IMPRESSION AND PLAN: A 77-year-old woman who has pleural effusions, elevated tumor markers particularly the CEA and the CA125 and was referred for gastrointestinal evaluation with elevated liver function tests and a poor appetite. Regarding the poor appetite, I had a long discussion with her son regarding the risks and benefits of a percutaneous endoscopic gastrostomy insertion. He wants times to think it over and will let me know later tonight or tomorrow morning whether he would like to proceed with the percutaneous endoscopic gastrostomy procedure or not. Regarding the liver function tests would simply monitor, there are only mildly elevated may be related to her antibiotic use whatever underlying process is ongoing in her system. The alpha fetoprotein is normal, therefore I doubt any type of hepatic malignancy in the CT does not show any liver lesions and I will follow along with you. Reji Mcleod MD
[2017-08-15 08:21] LABS: % CD4 (T HELPER CELL) 51 Percent (30-61); % CD8 (SUPPRESSOR T CELL) 16 Percent (12-42); ABSOLUTE CD4 CELLS 278 Cells/mcL (490-1740); ABSOLUTE CD8 CELLS 87 Cells/mcL (180-1170); ABSOLUTE LYMPHOCYTES 543 Cells/mcL (850-3900); HELPER/SUPPRESSOR RATIO 3.19 Ratio (0.86-5.00)
--- NOTE | 2017-08-15 09:18 | CP.PCM.PN ---
Addendum entered and electronically signed by Kirby Parrish MD 08/15/17 14:07: Patient receiving IV unasyn and clindamycin for UTI Original Note: <Kirby Parrish - Last Filed: 08/15/17 12:23> Subjective - Date & Time of Evaluation Date of Evaluation: 08/15/17 Time of Evaluation: 08:55 - Subjective Subjective: Patient seen and examined at bedside this morning. There are no acute events overnight, NAD. Patient still has poor appetite. Patient on PPN. Patient had thoracocentesis yesterday which drained 300cc of straw colored fluid. Patient seen by GI for possible PEG placement Objective - Vital Signs/Intake and Output Vital Signs (last 24 hours): Temp Pulse Resp BP Pulse Ox 98.1 F 87 20 130/70 99 08/15/17 08:00 08/15/17 08:00 08/15/17 08:00 08/15/17 08:00 08/15/17 08:00 - Medications Medications: Current Medications Acetaminophen (Tylenol 325mg Tab) 650 mg PO Q6 PRN PRN Reason: Other Last Admin: 08/13/17 18:15 Dose: 650 mg Aspirin (Aspirin) 325 mg PO DAILY [facility] Last Admin: 08/14/17 17:17 Dose: 325 mg Atorvastatin Calcium (Lipitor) 20 mg PO DAILY [facility] Last Admin: 08/14/17 10:50 Dose: 20 mg Carvedilol (Coreg) 12.5 mg PO Q12 [facility] Last Admin: 08/14/17 21:35 Dose: 12.5 mg Diltiazem HCl (Cardizem) 30 mg PO QID [facility] Last Admin: 08/14/17 21:33 Dose: 30 mg Ampicillin Sodium/Sulbactam (Sodium 1.5 gm/ Sodium Chloride) 100 mls @ 100 mls/ hr IVPB Q6 [facility] PRN Reason: Protocol Last Admin: 08/15/17 04:15 Dose: 100 mls/hr Clindamycin Phosphate (Cleocin In Normal Saline) 600 mg in 50 mls @ 50 mls/hr IVPB Q12 [facility] PRN Reason: Protocol Last Admin: 08/14/17 21:26 Dose: 50 mls/hr Dextrose/Sodium Chloride (Dextrose 5%/0.45% Ns 1000 Ml) 1,000 mls @ 60 mls/hr IV .[id number] [facility] Stop: 08/16/17 08:44 Insulin Human Regular (Humulin R) 0 units SC ACHS [facility] PRN Reason: Protocol Last Admin: 08/15/17 06:42 Dose: Not Given Megestrol Acetate (Megace) 20 mg PO DAILY [facility] Last Admin: 08/14/17 10:50 Dose: 20 mg Memantine (Namenda) 5 mg PO BID [facility] Last Admin: 08/14/17 17:12 Dose: 5 mg - Labs Labs: 08/15/17 05:00 08/15/17 05:00 PT 14.0 Seconds (9.8-13.1) H 08/13/17 04:20 INR 1.3 (0.9-1.2) H 08/13/17 04:20 APTT 36.4 Seconds (25.6-37.1) 08/13/17 04:20 - Constitutional Appears: Non-toxic, No Acute Distress - Head Exam Head Exam: ATRAUMATIC, NORMAL INSPECTION, NORMOCEPHALIC - Eye Exam Eye Exam: Normal appearance - ENT Exam ENT Exam: Mucous Membranes Dry - Neck Exam Neck Exam: Full ROM. absent: Tenderness - Respiratory Exam Respiratory Exam: Clear to Ausculation Bilateral. absent: Accessory Muscle Use , Decreased Breath Sounds, Rales, Rhonchi, Wheezes, Respiratory Distress - Cardiovascular Exam Cardiovascular Exam: REGULAR RHYTHM. absent: Tachycardia - Extremities Exam Extremities Exam: absent: Calf Tenderness, Pedal Edema, Tenderness - Neurological Exam Neurological Exam: Alert, Awake - Skin Skin Exam: Dry, Intact, Normal Color, Warm Assessment and Plan (1) Afib Status: Acute (2) Ascites Status: Acute (3) Dementia Status: Chronic (4) Elevated CA 19-9 level Status: Acute (5) Elevated CA-125 Status: Acute (6) Elevated CEA Status: Acute (7) NSTEMI (non-ST elevated myocardial infarction) Status: Acute (8) Pleural effusion Status: Acute - Assessment and Plan (Free Text) Plan: c/w present management Cardiology recommendations appreciated Pulmonology recommednations appreciated Infectious disease recommendations appreciated Heme/Onc recommendations appreciated GI consult recommendations appreciated, possible PEG placement tomorrow AM thoracocentesis done, drained 300cc straw colored fluid f/u fluid cytology/pathology f/u breast U/S c/w PPN clindamycin 600 mg IV Q12h day 4 unasyn 1.5 gm IV Q6h day 4 awaiting transfer to [facility] <KiranKang L - Last Filed: 08/15/17 20:22> Objective - Vital Signs/Intake and Output Vital Signs (last 24 hours): Temp Pulse Resp BP Pulse Ox 97.6 F 73 16 99/57 L 99 08/15/17 18:58 08/15/17 18:58 08/15/17 18:58 08/15/17 18:58 08/15/17 18:58 Intake and Output: 08/15/17 08/16/17 18:59 06:59 Intake Total 730 Balance 730 - Medications Medications: Current Medications Acetaminophen (Tylenol 325mg Tab) 650 mg PO Q6 PRN PRN Reason: Other Last Admin: 08/13/17 18:15 Dose: 650 mg Aspirin (Aspirin) 325 mg PO DAILY [facility] Last Admin: 08/15/17 11:00 Dose: 325 mg Atorvastatin Calcium (Lipitor) 20 mg PO DAILY [facility] Last Admin: 08/15/17 11:04 Dose: 20 mg Carvedilol (Coreg) 12.5 mg PO Q12 [facility] Last Admin: 08/15/17 11:02 Dose: 12.5 mg Diltiazem HCl (Cardizem) 30 mg PO QID [facility] Last Admin: 08/15/17 16:30 Dose: Not Given Ampicillin Sodium/Sulbactam (Sodium 1.5 gm/ Sodium Chloride) 100 mls @ 100 mls/ hr IVPB Q6 [facility] PRN Reason: Protocol Last Admin: 08/15/17 16:36 Dose: 100 mls/hr Clindamycin Phosphate (Cleocin In Normal Saline) 600 mg in 50 mls @ 50 mls/hr IVPB Q12 [facility] PRN Reason: Protocol Last Admin: 08/15/17 11:02 Dose: 50 mls/hr Dextrose/Sodium Chloride (Dextrose 5%/0.45% Ns 1000 Ml) 1,000 mls @ 60 mls/hr IV .[id number] [facility] Stop: 08/16/17 08:44 Last Admin: 08/15/17 11:04 Dose: 60 mls/hr Insulin Human Regular (Humulin R) 0 units SC ACHS [facility] PRN Reason: Protocol Last Admin: 08/15/17 16:32 Dose: 1 unit Megestrol Acetate (Megace) 20 mg PO DAILY [facility] Last Admin: 08/15/17 11:04 Dose: 20 mg Memantine (Namenda) 5 mg PO BID [facility] Last Admin: 08/15/17 16:34 Dose: 5 mg - Labs Labs: 08/15/17 05:00 08/15/17 05:00 PT 14.0 Seconds (9.8-13.1) H 08/13/17 04:20 INR 1.3 (0.9-1.2) H 08/13/17 04:20 APTT 36.4 Seconds (25.6-37.1) 08/13/17 04:20 Assessment and Plan (1) Atrial fibrillation with rapid ventricular response Status: Resolved (2) NSTEMI (non-ST elevated myocardial infarction) Status: Acute (3) Dementia Status: Chronic (4) Hyperglycemia Status: Acute (5) Abnormal liver enzymes Status: Acute (6) Pleural effusion Status: Acute (7) Ascites Status: Acute (8) Elevated CEA Status: Acute (9) Elevated CA-125 Status: Acute (10) Elevated CA 19-9 level Status: Acute (11) Leukocytosis Status: Acute - Assessment and Plan (Free Text) Plan: I was present during evaluation and discussed with Dr Francois finnegan plans of care and tx. Kang Beck M.D.
[2017-08-15] MEDS: Clindamycin 600mg/50ml NS 600 MG/50 ML BAG IVPB SCH ×2 (11:02→21:38)
[2017-08-15] MEDS: Dextrose 5%/0.45% NS 1,000 ML IV SCH (11:04)
[2017-08-16] MEDS: Dextrose 5%/0.45% NS 1,000 ML IV SCH ×3 (02:06→22:03)
[2017-08-16] MEDS: Insulin Regular 100 units/ml SC SCH ×4 (07:03→22:21)
--- NOTE | 2017-08-16 09:04 | CP.PCM.PN ---
Subjective - Date & Time of Evaluation Date of Evaluation: 08/16/17 Time of Evaluation: 09:03 - Subjective Subjective: Pt's condition is unchanged. Cbc and Chemistries are within the normal limit.The final path report is not yet available. Will follow. Objective - Vital Signs/Intake and Output Vital Signs (last 24 hours): Temp Pulse Resp BP Pulse Ox 98.5 F 92 H 20 147/84 98 08/16/17 08:00 08/16/17 08:00 08/16/17 08:00 08/16/17 08:00 08/16/17 08:00 - Medications Medications: Current Medications Acetaminophen (Tylenol 325mg Tab) 650 mg PO Q6 PRN PRN Reason: Other Last Admin: 08/16/17 02:01 Dose: 650 mg Aspirin (Aspirin) 325 mg PO DAILY [facility] Last Admin: 08/15/17 11:00 Dose: 325 mg Atorvastatin Calcium (Lipitor) 20 mg PO DAILY [facility] Last Admin: 08/15/17 11:04 Dose: 20 mg Carvedilol (Coreg) 12.5 mg PO Q12 [facility] Last Admin: 08/15/17 21:48 Dose: Not Given Diltiazem HCl (Cardizem) 30 mg PO QID [facility] Last Admin: 08/15/17 21:46 Dose: Not Given Ampicillin Sodium/Sulbactam (Sodium 1.5 gm/ Sodium Chloride) 100 mls @ 100 mls/ hr IVPB Q6 [facility] PRN Reason: Protocol Last Admin: 08/16/17 03:49 Dose: 100 mls/hr Clindamycin Phosphate (Cleocin In Normal Saline) 600 mg in 50 mls @ 50 mls/hr IVPB Q12 [facility] PRN Reason: Protocol Last Admin: 08/15/17 21:38 Dose: 50 mls/hr Insulin Human Regular (Humulin R) 0 units SC ACHS [facility] PRN Reason: Protocol Last Admin: 08/16/17 07:03 Dose: Not Given Megestrol Acetate (Megace) 20 mg PO DAILY [facility] Last Admin: 08/15/17 11:04 Dose: 20 mg Memantine (Namenda) 5 mg PO BID [facility] Last Admin: 08/15/17 16:34 Dose: 5 mg - Labs Labs: 08/15/17 05:00 08/15/17 05:00 PT 14.0 Seconds (9.8-13.1) H 08/13/17 04:20 INR 1.3 (0.9-1.2) H 08/13/17 04:20 APTT 36.4 Seconds (25.6-37.1) 08/13/17 04:20
--- NOTE | 2017-08-16 09:11 | CP.PCM.PN ---
<Kirby Parrish - Last Filed: 08/16/17 14:04> Subjective - Date & Time of Evaluation Date of Evaluation: 08/16/17 Time of Evaluation: 08:05 - Subjective Subjective: Patient seen and examined at bedside this morning. There are no acute events overnight, NAD. Patient still has poor appetite. Patient on D5 1/2NS @60 mL/ h. Patient seen by GI for possible PEG placement. PEG to be placed today Objective - Vital Signs/Intake and Output Vital Signs (last 24 hours): Temp Pulse Resp BP Pulse Ox 98.5 F 92 H 20 147/84 98 08/16/17 08:00 08/16/17 08:00 08/16/17 08:00 08/16/17 08:00 08/16/17 08:00 - Medications Medications: Current Medications Acetaminophen (Tylenol 325mg Tab) 650 mg PO Q6 PRN PRN Reason: Other Last Admin: 08/16/17 09:06 Dose: 650 mg Aspirin (Aspirin) 325 mg PO DAILY [facility] Last Admin: 08/15/17 11:00 Dose: 325 mg Atorvastatin Calcium (Lipitor) 20 mg PO DAILY [facility] Last Admin: 08/15/17 11:04 Dose: 20 mg Carvedilol (Coreg) 12.5 mg PO Q12 [facility] Last Admin: 08/15/17 21:48 Dose: Not Given Diltiazem HCl (Cardizem) 30 mg PO QID [facility] Last Admin: 08/15/17 21:46 Dose: Not Given Ampicillin Sodium/Sulbactam (Sodium 1.5 gm/ Sodium Chloride) 100 mls @ 100 mls/ hr IVPB Q6 [facility] PRN Reason: Protocol Last Admin: 08/16/17 03:49 Dose: 100 mls/hr Clindamycin Phosphate (Cleocin In Normal Saline) 600 mg in 50 mls @ 50 mls/hr IVPB Q12 [facility] PRN Reason: Protocol Last Admin: 08/15/17 21:38 Dose: 50 mls/hr Insulin Human Regular (Humulin R) 0 units SC ACHS [facility] PRN Reason: Protocol Last Admin: 08/16/17 07:03 Dose: Not Given Megestrol Acetate (Megace) 20 mg PO DAILY [facility] Last Admin: 08/15/17 11:04 Dose: 20 mg Memantine (Namenda) 5 mg PO BID [facility] Last Admin: 08/15/17 16:34 Dose: 5 mg - Labs Labs: 08/15/17 05:00 08/15/17 05:00 PT 14.0 Seconds (9.8-13.1) H 08/13/17 04:20 INR 1.3 (0.9-1.2) H 08/13/17 04:20 APTT 36.4 Seconds (25.6-37.1) 08/13/17 04:20 - Constitutional Appears: No Acute Distress - Head Exam Head Exam: ATRAUMATIC, NORMAL INSPECTION, NORMOCEPHALIC - Eye Exam Eye Exam: Normal appearance - ENT Exam ENT Exam: Mucous Membranes Dry - Neck Exam Neck Exam: Full ROM. absent: Tenderness - Respiratory Exam Respiratory Exam: Clear to Ausculation Bilateral. absent: Accessory Muscle Use , Decreased Breath Sounds, Rales, Rhonchi, Wheezes, Respiratory Distress - Cardiovascular Exam Cardiovascular Exam: REGULAR RHYTHM. absent: Tachycardia - GI/Abdominal Exam GI & Abdominal Exam: Soft, Normal Bowel Sounds. absent: Distended, Tenderness - Extremities Exam Extremities Exam: absent: Calf Tenderness, Pedal Edema, Tenderness - Neurological Exam Neurological Exam: Alert, Awake - Skin Skin Exam: Dry, Intact, Normal Color, Warm Assessment and Plan (1) Afib Status: Acute (2) Ascites Status: Acute (3) Dementia Status: Chronic (4) Elevated CA 19-9 level Status: Acute (5) Elevated CA-125 Status: Acute (6) Elevated CEA Status: Acute (7) NSTEMI (non-ST elevated myocardial infarction) Status: Acute (8) Pleural effusion Status: Acute (9) UTI (urinary tract infection) Status: Acute - Assessment and Plan (Free Text) Plan: c/w present management Cardiology recommendations appreciated Pulmonology recommednations appreciated Infectious disease recommendations appreciated Heme/Onc recommendations appreciated GI consult recommendations appreciated, possible PEG placement PEG placement today thoracocentesis done, drained 300cc straw colored fluid f/u fluid cytology/pathology f/u breast U/S IVF D5 1/2NS @ 60 mL/h clindamycin 600 mg IV Q12h day 5 unasyn 1.5 gm IV Q6h day 5 awaiting transfer to [facility] <Kang Beck - Last Filed: 08/17/17 22:56> Objective - Vital Signs/Intake and Output Vital Signs (last 24 hours): Temp Pulse Resp BP Pulse Ox 98 F 70 20 124/71 97 08/17/17 16:57 08/17/17 22:13 08/17/17 22:13 08/17/17 22:13 08/17/17 22:13 - Medications Medications: Current Medications Acetaminophen (Tylenol 325mg Tab) 650 mg PO Q6 PRN PRN Reason: Other Last Admin: 08/17/17 19:36 Dose: 650 mg Aspirin (Aspirin) 325 mg PO DAILY [facility] Last Admin: 08/17/17 13:15 Dose: 325 mg Atorvastatin Calcium (Lipitor) 20 mg PO DAILY [facility] Last Admin: 08/17/17 09:37 Dose: 20 mg Carvedilol (Coreg) 12.5 mg PO Q12 [facility] Last Admin: 08/17/17 22:13 Dose: 12.5 mg Diltiazem HCl (Cardizem) 30 mg PO QID [facility] Last Admin: 08/17/17 22:13 Dose: 30 mg Insulin Human Regular (Humulin R) 0 units SC ACHS [facility] PRN Reason: Protocol Last Admin: 08/17/17 17:28 Dose: 2 unit Megestrol Acetate (Megace) 20 mg PO DAILY [facility] Last Admin: 08/17/17 13:15 Dose: 20 mg Memantine (Namenda) 5 mg PO BID [facility] Last Admin: 08/17/17 17:29 Dose: 5 mg Pantoprazole Sodium (Protonix Ec Tab) 40 mg PO BID [facility] Last Admin: 08/17/17 17:29 Dose: 40 mg - Labs Labs: 08/15/17 05:00 08/15/17 05:00 PT 14.0 Seconds (9.8-13.1) H 08/13/17 04:20 INR 1.3 (0.9-1.2) H 08/13/17 04:20 APTT 36.4 Seconds (25.6-37.1) 08/13/17 04:20 Assessment and Plan (1) Atrial fibrillation with rapid ventricular response Status: Resolved (2) NSTEMI (non-ST elevated myocardial infarction) Status: Acute (3) Dementia Status: Chronic (4) Hyperglycemia Status: Acute (5) Abnormal liver enzymes Status: Acute (6) Pleural effusion Status: Acute (7) Ascites Status: Acute (8) Elevated CEA Status: Acute (9) Elevated CA-125 Status: Acute (10) Elevated CA 19-9 level Status: Acute (11) Leukocytosis Status: Acute - Assessment and Plan (Free Text) Plan: I was present during evaluation and discussed with Dr Francios finnegan plans of care and tx. Kang Beck M.D.
[2017-08-16] MEDS: Clindamycin 600mg/50ml NS 600 MG/50 ML BAG IVPB SCH ×2 (09:19→21:59)
[2017-08-16] MEDS ORDERED: Etomidate 20 mg/10ml Inj IV ONE (13:07)
[2017-08-16] MEDS ORDERED: Midazolam 2 MG/2 ML VIAL ONE (13:07)
[2017-08-16] MEDS ORDERED: Propofol 10 mg/ml Inj (20 ML) ONE (13:08)
[2017-08-16] MEDS ORDERED: Lactated Ringer's 500 ML IV ONE (13:17)
[2017-08-16] MEDS: Pantoprazole 40 mg EC Tab PO SCH (17:00)
[2017-08-16] MEDS ORDERED: Pantoprazole 40 mg EC Tab PO SCH (17:00)
[2017-08-17] MEDS: Dextrose 5%/0.45% NS 1,000 ML IV SCH (04:22)
[2017-08-17] MEDS: Insulin Regular 100 units/ml SC SCH ×4 (08:10→23:11)
[2017-08-17] MEDS: Clindamycin 600mg/50ml NS 600 MG/50 ML BAG IVPB SCH ×2 (09:36→22:08)
[2017-08-17] MEDS: Pantoprazole 40 mg EC Tab PO SCH ×2 (09:38→17:29)
--- NOTE | 2017-08-17 10:58 | CP.PCM.PN ---
Subjective - Date & Time of Evaluation Date of Evaluation: 08/17/17 Time of Evaluation: 10:56 - Subjective Subjective: clinically stable c/o some pain at PEG site PE: vss afebrile abd - soft with +BS and PEG site clean without erythema or discharge imp/plan : start feeds thru tube and restart po intake as tolerated increase feeding rate slowly to desired rate will f/u PRN Objective - Vital Signs/Intake and Output Vital Signs (last 24 hours): Temp Pulse Resp BP Pulse Ox 97.3 F L 89 20 121/69 98 08/17/17 08:29 08/17/17 09:36 08/17/17 08:29 08/17/17 09:36 08/17/17 08:29 - Medications Medications: Current Medications Acetaminophen (Tylenol 325mg Tab) 650 mg PO Q6 PRN PRN Reason: Other Last Admin: 08/16/17 09:06 Dose: 650 mg Aspirin (Aspirin) 325 mg PO DAILY [facility] Last Admin: 08/16/17 09:18 Dose: 325 mg Atorvastatin Calcium (Lipitor) 20 mg PO DAILY [facility] Last Admin: 08/17/17 09:37 Dose: 20 mg Carvedilol (Coreg) 12.5 mg PO Q12 [facility] Last Admin: 08/17/17 09:36 Dose: 12.5 mg Diltiazem HCl (Cardizem) 30 mg PO QID [facility] Last Admin: 08/17/17 09:35 Dose: 30 mg Ampicillin Sodium/Sulbactam (Sodium 1.5 gm/ Sodium Chloride) 100 mls @ 100 mls/ hr IVPB Q6 [facility] PRN Reason: Protocol Last Admin: 08/17/17 09:38 Dose: 100 mls/hr Clindamycin Phosphate (Cleocin In Normal Saline) 600 mg in 50 mls @ 50 mls/hr IVPB Q12 [facility] PRN Reason: Protocol Last Admin: 08/17/17 09:36 Dose: 50 mls/hr Insulin Human Regular (Humulin R) 0 units SC ACHS [facility] PRN Reason: Protocol Last Admin: 08/17/17 08:10 Dose: 1 unit Megestrol Acetate (Megace) 20 mg PO DAILY [facility] Last Admin: 08/16/17 09:13 Dose: 20 mg Memantine (Namenda) 5 mg PO BID [facility] Last Admin: 08/17/17 09:37 Dose: 5 mg Pantoprazole Sodium (Protonix Ec Tab) 40 mg PO BID [facility] Last Admin: 08/17/17 09:38 Dose: 40 mg - Labs Labs: 08/15/17 05:00 08/15/17 05:00 PT 14.0 Seconds (9.8-13.1) H 08/13/17 04:20 INR 1.3 (0.9-1.2) H 08/13/17 04:20 APTT 36.4 Seconds (25.6-37.1) 08/13/17 04:20
--- NOTE | 2017-08-17 22:59 | CP.PCM.PN ---
Subjective - Date & Time of Evaluation Date of Evaluation: 08/17/17 Time of Evaluation: 17:15 - Subjective Subjective: Patient remains stable PEG inserted yesterday Has no fever Has no chest pain or SOB. Objective - Vital Signs/Intake and Output Vital Signs (last 24 hours): Temp Pulse Resp BP Pulse Ox 98 F 70 20 124/71 97 08/17/17 16:57 08/17/17 22:13 08/17/17 22:13 08/17/17 22:13 08/17/17 22:13 - Medications Medications: Current Medications Acetaminophen (Tylenol 325mg Tab) 650 mg PO Q6 PRN PRN Reason: Other Last Admin: 08/17/17 19:36 Dose: 650 mg Aspirin (Aspirin) 325 mg PO DAILY [facility] Last Admin: 08/17/17 13:15 Dose: 325 mg Atorvastatin Calcium (Lipitor) 20 mg PO DAILY [facility] Last Admin: 08/17/17 09:37 Dose: 20 mg Carvedilol (Coreg) 12.5 mg PO Q12 [facility] Last Admin: 08/17/17 22:13 Dose: 12.5 mg Diltiazem HCl (Cardizem) 30 mg PO QID [facility] Last Admin: 08/17/17 22:13 Dose: 30 mg Insulin Human Regular (Humulin R) 0 units SC ACHS [facility] PRN Reason: Protocol Last Admin: 08/17/17 17:28 Dose: 2 unit Megestrol Acetate (Megace) 20 mg PO DAILY [facility] Last Admin: 08/17/17 13:15 Dose: 20 mg Memantine (Namenda) 5 mg PO BID [facility] Last Admin: 08/17/17 17:29 Dose: 5 mg Pantoprazole Sodium (Protonix Ec Tab) 40 mg PO BID [facility] Last Admin: 08/17/17 17:29 Dose: 40 mg - Labs Labs: 08/15/17 05:00 08/15/17 05:00 PT 14.0 Seconds (9.8-13.1) H 08/13/17 04:20 INR 1.3 (0.9-1.2) H 08/13/17 04:20 APTT 36.4 Seconds (25.6-37.1) 08/13/17 04:20 - Eye Exam Eye Exam: Normal appearance - Respiratory Exam Respiratory Exam: Clear to Ausculation Bilateral - Cardiovascular Exam Cardiovascular Exam: REGULAR RHYTHM - GI/Abdominal Exam GI & Abdominal Exam: Normal Bowel Sounds - Neurological Exam Neurological Exam: Altered, Awake - Skin Skin Exam: Normal Color Assessment and Plan (1) Atrial fibrillation with rapid ventricular response Status: Resolved (2) NSTEMI (non-ST elevated myocardial infarction) Status: Acute (3) Dementia Status: Chronic (4) Hyperglycemia Status: Acute (5) Abnormal liver enzymes Status: Acute (6) Pleural effusion Status: Acute (7) Ascites Status: Acute (8) Elevated CEA Status: Acute (9) Elevated CA-125 Status: Acute (10) Elevated CA 19-9 level Status: Acute (11) Leukocytosis Status: Acute (12) Dehydration Status: Acute (13) Malnutrition Status: Acute - Assessment and Plan (Free Text) Plan: cont meds PEG feeding check labs long-term placement/ subacute rehab
[2017-08-18] MEDS: Insulin Regular 100 units/ml SC SCH ×4 (07:51→22:15)
[2017-08-18] MEDS: Pantoprazole 40 mg EC Tab PO SCH ×2 (09:24→17:37)
--- NOTE | 2017-08-18 15:29 | CP.PCM.PN ---
Subjective - Date & Time of Evaluation Date of Evaluation: 08/18/17 Time of Evaluation: 15:20 - Subjective Subjective: I D NOTE PATIENT ON CLINDAMYCIN/UNASYN CONTINUE SAME RX CXR(PORTABLE) ORDERED Objective - Vital Signs/Intake and Output Vital Signs (last 24 hours): Temp Pulse Resp BP Pulse Ox 97.8 F 82 18 138/75 97 08/18/17 09:06 08/18/17 12:57 08/18/17 09:23 08/18/17 09:24 08/18/17 09:23 - Medications Medications: Current Medications Acetaminophen (Tylenol 325mg Tab) 650 mg PO Q6 PRN PRN Reason: Other Last Admin: 08/18/17 11:13 Dose: 650 mg Aspirin (Aspirin) 325 mg PO DAILY [facility] Last Admin: 08/18/17 09:35 Dose: 325 mg Atorvastatin Calcium (Lipitor) 20 mg PO DAILY [facility] Last Admin: 08/18/17 09:24 Dose: 20 mg Carvedilol (Coreg) 12.5 mg PO Q12 [facility] Last Admin: 08/18/17 09:24 Dose: 12.5 mg Diltiazem HCl (Cardizem) 30 mg PO QID [facility] Last Admin: 08/18/17 12:57 Dose: 30 mg Ampicillin Sodium/Sulbactam (Sodium 1.5 gm/ Sodium Chloride) 100 mls @ 100 mls/ hr IVPB Q6 [facility] PRN Reason: Protocol Last Admin: 08/18/17 09:22 Dose: 100 mls/hr Clindamycin Phosphate (Cleocin In Normal Saline) 600 mg in 50 mls @ 50 mls/hr IVPB Q12 [facility] PRN Reason: Protocol Insulin Human Regular (Humulin R) 0 units SC ACHS [facility] PRN Reason: Protocol Last Admin: 08/18/17 12:59 Dose: 2 u Megestrol Acetate (Megace) 20 mg PO DAILY [facility] Last Admin: 08/18/17 09:24 Dose: 20 mg Memantine (Namenda) 5 mg PO BID [facility] Last Admin: 08/18/17 09:24 Dose: 5 mg Pantoprazole Sodium (Protonix Ec Tab) 40 mg PO BID [facility] Last Admin: 08/18/17 09:24 Dose: 40 mg - Labs Labs: 08/15/17 05:00 08/15/17 05:00 PT 14.0 Seconds (9.8-13.1) H 08/13/17 04:20 INR 1.3 (0.9-1.2) H 08/13/17 04:20 APTT 36.4 Seconds (25.6-37.1) 08/13/17 04:20
--- NOTE | 2017-08-18 19:31 | CP.PCM.PN ---
Subjective - Date & Time of Evaluation Date of Evaluation: 08/18/17 Time of Evaluation: 12:25 - Subjective Subjective: Patient remains stable No fever started peg feeding Has no fever WBC 12 Noted elevated accucheck Objective - Vital Signs/Intake and Output Vital Signs (last 24 hours): Temp Pulse Resp BP Pulse Ox 98.5 F 92 H 20 97/59 L 97 08/18/17 17:00 08/18/17 16:28 08/18/17 16:28 08/18/17 16:28 08/18/17 16:28 - Medications Medications: Current Medications Acetaminophen (Tylenol 325mg Tab) 650 mg PO Q6 PRN PRN Reason: Other Last Admin: 08/18/17 11:13 Dose: 650 mg Aspirin (Aspirin) 325 mg PO DAILY [facility] Last Admin: 08/18/17 09:35 Dose: 325 mg Atorvastatin Calcium (Lipitor) 20 mg PO DAILY [facility] Last Admin: 08/18/17 09:24 Dose: 20 mg Carvedilol (Coreg) 12.5 mg PO Q12 [facility] Last Admin: 08/18/17 09:24 Dose: 12.5 mg Diltiazem HCl (Cardizem) 30 mg PO QID [facility] Last Admin: 08/18/17 17:37 Dose: Not Given Ampicillin Sodium/Sulbactam (Sodium 1.5 gm/ Sodium Chloride) 100 mls @ 100 mls/ hr IVPB Q6 [facility] PRN Reason: Protocol Last Admin: 08/18/17 18:09 Dose: 100 mls/hr Clindamycin Phosphate (Cleocin In Normal Saline) 600 mg in 50 mls @ 50 mls/hr IVPB Q12 [facility] PRN Reason: Protocol Insulin Human Regular (Humulin R) 0 units SC ACHS [facility] PRN Reason: Protocol Last Admin: 08/18/17 17:37 Dose: 1 u Megestrol Acetate (Megace) 20 mg PO DAILY [facility] Last Admin: 08/18/17 09:24 Dose: 20 mg Memantine (Namenda) 5 mg PO BID [facility] Last Admin: 08/18/17 17:37 Dose: 5 mg Pantoprazole Sodium (Protonix Ec Tab) 40 mg PO BID [facility] Last Admin: 08/18/17 17:37 Dose: 40 mg - Labs Labs: 08/15/17 05:00 08/15/17 05:00 PT 14.0 Seconds (9.8-13.1) H 08/13/17 04:20 INR 1.3 (0.9-1.2) H 08/13/17 04:20 APTT 36.4 Seconds (25.6-37.1) 08/13/17 04:20 - Head Exam Head Exam: NORMAL INSPECTION - Eye Exam Eye Exam: Normal appearance - ENT Exam ENT Exam: Mucous Membranes Moist - Respiratory Exam Respiratory Exam: Clear to Ausculation Bilateral - Cardiovascular Exam Cardiovascular Exam: REGULAR RHYTHM - GI/Abdominal Exam GI & Abdominal Exam: Normal Bowel Sounds - Neurological Exam Neurological Exam: CN II-XII Intact, Oriented x3 Assessment and Plan (1) Atrial fibrillation with rapid ventricular response Status: Resolved (2) NSTEMI (non-ST elevated myocardial infarction) Status: Acute (3) Dementia Status: Chronic (4) Hyperglycemia Status: Acute (5) Abnormal liver enzymes Status: Acute (6) Pleural effusion Status: Acute (7) Ascites Status: Acute (8) Elevated CEA Status: Acute (9) Elevated CA-125 Status: Acute (10) Elevated CA 19-9 level Status: Acute (11) Leukocytosis Status: Acute (12) Dehydration Status: Acute (13) Malnutrition Status: Acute - Assessment and Plan (Free Text) Plan: Cont meds optimize peg feeding check labs Phys therapy PT subacute rehab start [facility]
[2017-08-18] MEDS: Clindamycin 600mg/50ml NS 600 MG/50 ML BAG IVPB SCH (20:54)
--- NOTE | 2017-08-19 09:47 | CP.PCM.PN ---
Subjective - Date & Time of Evaluation Date of Evaluation: 08/19/17 Time of Evaluation: 09:38 - Subjective Subjective: Pt is alert, and answering questions. Still does not have an appetite, The pleural fluid did not show any malignant cells. I feel pt should have a PET scan afetr discharge. Objective - Vital Signs/Intake and Output Vital Signs (last 24 hours): Temp Pulse Resp BP Pulse Ox 98.1 F 92 H 20 125/76 97 08/19/17 08:15 08/19/17 08:15 08/19/17 08:15 08/19/17 08:15 08/19/17 08:15 - Medications Medications: Current Medications Acetaminophen (Tylenol 325mg Tab) 650 mg PO Q6 PRN PRN Reason: Other Last Admin: 08/19/17 03:22 Dose: 650 mg Aspirin (Aspirin) 325 mg PO DAILY [facility] Last Admin: 08/18/17 09:35 Dose: 325 mg Atorvastatin Calcium (Lipitor) 20 mg PO DAILY [facility] Last Admin: 08/18/17 09:24 Dose: 20 mg Carvedilol (Coreg) 12.5 mg PO Q12 [facility] Last Admin: 08/18/17 20:55 Dose: 12.5 mg Diltiazem HCl (Cardizem) 30 mg PO QID [facility] Last Admin: 08/18/17 22:36 Dose: 30 mg Ampicillin Sodium/Sulbactam (Sodium 1.5 gm/ Sodium Chloride) 100 mls @ 100 mls/ hr IVPB Q6 [facility] PRN Reason: Protocol Last Admin: 08/19/17 04:04 Dose: 100 mls/hr Clindamycin Phosphate (Cleocin In Normal Saline) 600 mg in 50 mls @ 50 mls/hr IVPB Q12 [facility] PRN Reason: Protocol Stop: 08/19/17 20:30 Last Admin: 08/18/17 20:54 Dose: 50 mls/hr Clindamycin Phosphate 600 mg/ (Dextrose) 54 mls @ 54 mls/hr IVPB Q12 [facility] PRN Reason: Protocol Insulin Human Regular (Humulin R) 0 units SC ACHS [facility] PRN Reason: Protocol Last Admin: 08/18/17 22:15 Dose: Not Given Megestrol Acetate (Megace) 20 mg PO DAILY [facility] Last Admin: 08/18/17 09:24 Dose: 20 mg Memantine (Namenda) 5 mg PO BID [facility] Last Admin: 08/18/17 17:37 Dose: 5 mg Pantoprazole Sodium (Protonix Ec Tab) 40 mg PO BID [facility] Last Admin: 08/18/17 17:37 Dose: 40 mg Sitagliptin Phosphate (Januvia) 50 mg PO DAILY [facility] - Labs Labs: 08/15/17 05:00 08/15/17 05:00 PT 14.0 Seconds (9.8-13.1) H 08/13/17 04:20 INR 1.3 (0.9-1.2) H 08/13/17 04:20 APTT 36.4 Seconds (25.6-37.1) 08/13/17 04:20
[2017-08-19] MEDS: Clindamycin 600mg/50ml NS 600 MG/50 ML BAG IVPB SCH (09:49)
[2017-08-19] MEDS: Insulin Regular 100 units/ml SC SCH ×4 (09:50→22:02)
[2017-08-19] MEDS: Pantoprazole 40 mg EC Tab PO SCH ×2 (09:51→17:10)
--- NOTE | 2017-08-19 11:26 | ENDO ---
Procedure Date: 08/16/2017 Surgeon: Reji Mcleod Anesthesiologist: Robbie Caicedo V Anesthetic: Deep Sedation Pre-OP Diagnosis: Dysphagia Post-OP Diagnosis: Multiple gastric and duodenal ulcers hiatal hernia insertion of PEG Procedure: EGD with PEG INSERTION HISTORY OF PRESENT ILLNESS: This is a very pleasant 77-year-old demented woman who is having malnourishment and needed a percutaneous endoscopic gastrostomy tube insertion in the endoscopy suite. I had a long discussion with her son, Yuriy Culver regarding all the risks and benefits of the PEG and he signed the consent to the procedure as well as to the anesthesia. After this consent was obtained, the patient was brought into the endoscopy suite in a supine position and she was sedated by Dr. Caicedo of the Anesthesia Department. Using entered the mouth down the pharynx into esophagus, stomach, and pylorus into the duodenum. Findings were as follows; 1. She had severe duodenitis with multiple ulcerations throughout the bulb and second and third portions of the duodenum. None of these had any visible vessels on the , but they did have some eschar without any active bleeding. I collected multiple biopsies. into the antral area, once again she had multiple erosions and ulcerations all of which were cleaned based on the evidence of bleeding. Multiple biopsies of the ulcerations in the antrum were collected. Scope placed in the retroflexed position revealed a small hiatus hernia, proximal stomach also had evidence of gastritis with several small erosions. Once I screened out the scope, we identified an appropriate positioning on the greater tuberosity of gastric body and using usual sterile technique, a 20-Spanish PEG tube was inserted into the stomach without incident. The back into the esophagus. Examination of the esophagus revealed distal esophagitis without any evidence of ulcerations or tumors. She tolerated the procedure well. Postop orders were written. I discussed with her son postoperative all the findings. She is to start taking pantoprazole 40 mg through the PEG twice daily. We will start feedings via the PEG tomorrow. She can also has some p.o. fluid as well starting tomorrow and I discussed this with the nursing staff the patient agreed. Reji Mcleod MD
[2017-08-19] MEDS ORDERED: Insulin Regular 100 units/ml SC STA (11:58)
[2017-08-19 13:26] LABS: HEMOGLOBIN 12.1 g/dL (12.0-16.0); MEAN CORPUSCULAR HEMOGLOBIN 30.5 pg (27.0-31.0); MEAN CORPUSCULAR HGB CONC 33.1 g/dL (33.0-37.0); RBC 3.98 Mil/uL (3.80-5.20); RED CELL DISTRIBUTION WIDTH 16.2 % (11.5-14.5); WHITE BLOOD COUNT 16.2 K/uL (4.8-10.8)
[2017-08-19 13:33] LABS: BLOOD UREA NITROGEN 17 mg/dl (7-17); CALCIUM 7.5 mg/dL (8.4-10.2); GFR AFRICAN-AMERICAN > 60; GFR NON-AFRICAN AMERICAN > 60; MEAN CELL VOLUME 92.2 fl (81.0-99.0)
--- NOTE | 2017-08-19 13:44 | RAD ---
PROCEDURE: CHEST RADIOGRAPH, 1 VIEW HISTORY: PNEUMONIA COMPARISON: Chest radiograph dated 08/14/2017 FINDINGS: LUNGS: Bibasilar atelectasis. PLEURA: Small bilateral pleural effusions, slightly increased. Limited assessment for pneumothorax due to suboptimal patient positioning and acquisition technique. CARDIOVASCULAR: Atherosclerotic aortic calcifications. Cardiomediastinal silhouette stably enlarged. OSSEOUS STRUCTURES: Unchanged. VISUALIZED UPPER ABDOMEN: Right upper quadrant surgical clips redemonstrated. Gastrostomy tube. OTHER FINDINGS: None. IMPRESSION: Small bilateral pleural effusions, slightly increased. Limited assessment for pneumothorax due to suboptimal patient positioning and acquisition technique.
[2017-08-19] MEDS ORDERED: Potassium Chloride 20 mEq/15 ml LIQ UD PO ONE (14:36)
[2017-08-20 06:22] LABS: HEMOGLOBIN 12.2 g/dL (12.0-16.0); MEAN CELL VOLUME 93.1 fl (81.0-99.0); MEAN CORPUSCULAR HEMOGLOBIN 30.3 pg (27.0-31.0); MEAN CORPUSCULAR HGB CONC 32.6 g/dL (33.0-37.0); RBC 4.03 Mil/uL (3.80-5.20); RED CELL DISTRIBUTION WIDTH 16.3 % (11.5-14.5); WHITE BLOOD COUNT 14.4 K/uL (4.8-10.8)
[2017-08-20 06:32] LABS: BLOOD UREA NITROGEN 18 mg/dl (7-17); CALCIUM 7.6 mg/dL (8.4-10.2); GFR AFRICAN-AMERICAN > 60; GFR NON-AFRICAN AMERICAN > 60
[2017-08-20] MEDS: Pantoprazole 40 mg EC Tab PO SCH ×2 (08:48→16:30)
[2017-08-20] MEDS: Insulin Regular 100 units/ml SC SCH ×4 (08:51→21:26)
--- NOTE | 2017-08-20 11:17 | US ---
PROCEDURE: Bilateral upper extremity venous sonography HISTORY: R/o DVT COMPARISON: None TECHNIQUE: Real-time ultrasound scan of the veins with color flow, spectral waveform analysis and compression FINDINGS: Right upper extremity: No evidence of deep vein thrombosis.Vessels image: Right internal jugular, subclavian, axillary, brachial veins. Basilic, cephalic, ulnar and radial veins also imaged Left upper extremity: No evidence of deep vein thrombosis. Vessels image: Right internal jugular, subclavian, axillary, brachial veins.Basilic, cephalic, ulnar and radial veins also imaged Incidental finding(s): Upper extremity superficial edema IMPRESSION: Negative study for upper extremity venous thrombosis. Concordant results (preliminary interpretation) provided by [facility]. Procedure Completed: 18:50. Preliminary ([facility]) Report: Dictated and Authenticated: 21:19. Final Interpretation: 11:11.
--- NOTE | 2017-08-20 12:54 | US ---
PROCEDURE: Date of procedure: 08/14/2017 Procedure: 1. Ultrasound-guided Right thoracentesis, CPT 52266 Medications: 6cc 1% Lidocaine HISTORY: Right pleural effusion, shortness of breath TECHNIQUE: Following informed consent ,the Patients' right chest was marked. Procedure time-out was called, and the patient was placed in the sitting position and limited ultrasound showed a small right effusion. The patient's right back was prepped and draped in the usual sterile fashion. After the skin was anesthetized with lidocaine, a drainage catheter was advanced under ultrasound guidance into the pleural space. Ultrasound-guided thoracentesis was performed. A total of 300 cubic centimeters of straw-colored fluid removed without complication. A Xeroform dressing was applied. IMPRESSION: Ultrasound guided Right thoracentesis. There were no immediate complications.
--- NOTE | 2017-08-20 14:20 | CP.PCM.PN ---
Subjective - Date & Time of Evaluation Date of Evaluation: 08/20/17 Time of Evaluation: 08:10 - Subjective Subjective: Patient seen and examined at bedside this morning. There are no acute events overnight, NAD. Patient is sitting and eating breakfast. Patient has PEG in place at 35mL/hr. Patient reports pain is present but less. Objective - Vital Signs/Intake and Output Vital Signs (last 24 hours): Temp Pulse Resp BP Pulse Ox 97.9 F 63 17 137/81 96 08/20/17 08:33 08/20/17 12:20 08/20/17 12:20 08/20/17 12:32 08/20/17 12:20 - Medications Medications: Current Medications Acetaminophen (Tylenol 325mg Tab) 650 mg PO Q6 PRN PRN Reason: Other Last Admin: 08/20/17 12:18 Dose: 650 mg Aspirin (Aspirin) 325 mg PO DAILY [facility] Last Admin: 08/20/17 09:03 Dose: 325 mg Atorvastatin Calcium (Lipitor) 20 mg PO DAILY [facility] Last Admin: 08/20/17 08:50 Dose: 20 mg Carvedilol (Coreg) 12.5 mg PO Q12 [facility] Last Admin: 08/20/17 08:49 Dose: 12.5 mg Diltiazem HCl (Cardizem) 30 mg PO QID [facility] Last Admin: 08/20/17 12:20 Dose: 30 mg Ampicillin Sodium/Sulbactam (Sodium 1.5 gm/ Sodium Chloride) 100 mls @ 100 mls/ hr IVPB Q6 [facility] PRN Reason: Protocol Last Admin: 08/20/17 09:01 Dose: 100 mls/hr Clindamycin Phosphate 600 mg/ (Dextrose) 54 mls @ 54 mls/hr IVPB Q12 [facility] PRN Reason: Protocol Last Admin: 08/20/17 08:50 Dose: 54 mls/hr Insulin Human Regular (Humulin R) 0 units SC ACHS [facility] PRN Reason: Protocol Last Admin: 08/20/17 12:19 Dose: 1 u Megestrol Acetate (Megace) 20 mg PO DAILY [facility] Last Admin: 08/20/17 08:49 Dose: 20 mg Memantine (Namenda) 5 mg PO BID [facility] Last Admin: 08/20/17 08:49 Dose: 5 mg Pantoprazole Sodium (Protonix Ec Tab) 40 mg PO BID [facility] Last Admin: 08/20/17 08:48 Dose: 40 mg Sitagliptin Phosphate (Januvia) 50 mg PO DAILY [facility] Last Admin: 08/20/17 08:48 Dose: 50 mg - Labs Labs: 08/20/17 05:50 08/20/17 05:50 PT 14.0 Seconds (9.8-13.1) H 08/13/17 04:20 INR 1.3 (0.9-1.2) H 08/13/17 04:20 APTT 36.4 Seconds (25.6-37.1) 08/13/17 04:20 - Constitutional Appears: No Acute Distress - Head Exam Head Exam: ATRAUMATIC, NORMAL INSPECTION, NORMOCEPHALIC - Eye Exam Eye Exam: Normal appearance - ENT Exam ENT Exam: Mucous Membranes Dry - Neck Exam Neck Exam: Full ROM. absent: Tenderness - Respiratory Exam Respiratory Exam: Clear to Ausculation Bilateral. absent: Accessory Muscle Use , Decreased Breath Sounds, Rales, Rhonchi, Wheezes, Respiratory Distress - Cardiovascular Exam Cardiovascular Exam: REGULAR RHYTHM. absent: Tachycardia - GI/Abdominal Exam Additional comments: PEG in place LUQ, c/d/i, no erythema, no kinks - Extremities Exam Extremities Exam: Pedal Edema. absent: Calf Tenderness, Tenderness Additional comments: upper and lower extremities less edematous - Neurological Exam Neurological Exam: Alert, Awake - Skin Skin Exam: Dry, Intact, Normal Color, Warm Assessment and Plan (1) Afib Status: Acute (2) Ascites Status: Acute (3) Dementia Status: Chronic (4) Elevated CA 19-9 level Status: Acute (5) Elevated CA-125 Status: Acute (6) Elevated CEA Status: Acute (7) NSTEMI (non-ST elevated myocardial infarction) Status: Acute (8) Pleural effusion Status: Acute (9) UTI (urinary tract infection) Status: Acute - Assessment and Plan (Free Text) Plan: c/w present management Cardiology recommendations appreciated Pulmonology recommednations appreciated Infectious disease recommendations appreciated Heme/Onc recommendations appreciated GI consult recommendations appreciated PEG in place, @ 35mL/h thoracocentesis done, drained 300cc straw colored fluid fluid cytology/pathology: no malignant cells f/u breast U/S CXR 08/18: small bilateral pleural effusions, slightly increased Upper extremity U/S: negative for DVT clindamycin 600 mg IV Q12h day 9 unasyn 1.5 gm IV Q6h day 9 f/u CBC, BMP insulin correction scale hypoglycemic protocol monitor for acute changes
[2017-08-20] MEDS ORDERED: Dextrose 50% SYRINGE Inj (50 ml) IV PRN (14:29)
[2017-08-20] MEDS ORDERED: Glucagon Recombinant 1 mg Inj IM PRN (14:29)
[2017-08-21 06:36] LABS: HEMOGLOBIN 11.8 g/dL (12.0-16.0); MEAN CELL VOLUME 92.2 fl (81.0-99.0); MEAN CORPUSCULAR HEMOGLOBIN 30.1 pg (27.0-31.0); MEAN CORPUSCULAR HGB CONC 32.6 g/dL (33.0-37.0); RBC 3.93 Mil/uL (3.80-5.20); RED CELL DISTRIBUTION WIDTH 16.1 % (11.5-14.5); WHITE BLOOD COUNT 12.9 K/uL (4.8-10.8)
[2017-08-21 07:26] LABS: BLOOD UREA NITROGEN 19 mg/dl (7-17); CALCIUM 7.6 mg/dL (8.4-10.2); GFR AFRICAN-AMERICAN > 60; GFR NON-AFRICAN AMERICAN > 60
[2017-08-21 07:50] VITALS: BP 122/70; PULSE 100; RESP 20; TEMP 98.6; O2SAT 98
[2017-08-21] MEDS: Insulin Regular 100 units/ml SC SCH ×2 (08:39→12:44)
[2017-08-21] MEDS: Pantoprazole 40 mg EC Tab PO SCH (08:43)
--- NOTE | 2017-08-21 10:53 | CP.PCM.PN ---
Subjective - Date & Time of Evaluation Date of Evaluation: 08/21/17 Time of Evaluation: 10:49 - Subjective Subjective: Pt's appetite has definitely improved over the past few days since the megace has been started. No tumor has shown up inspite of so many tests done. I feel she should have a PET scan after discharge to r/o an occult malignsncy Will sign off case. Please recall if needed Objective - Vital Signs/Intake and Output Vital Signs (last 24 hours): Temp Pulse Resp BP Pulse Ox 98.6 F 100 H 20 122/70 98 08/21/17 07:50 08/21/17 07:50 08/21/17 07:50 08/21/17 07:50 08/21/17 07:50 - Medications Medications: Current Medications Acetaminophen (Tylenol 325mg Tab) 650 mg PO Q6 PRN PRN Reason: Other Last Admin: 08/20/17 12:18 Dose: 650 mg Aspirin (Aspirin) 325 mg PO DAILY [facility] Last Admin: 08/21/17 08:43 Dose: 325 mg Atorvastatin Calcium (Lipitor) 20 mg PO DAILY [facility] Last Admin: 08/21/17 08:43 Dose: 20 mg Carvedilol (Coreg) 12.5 mg PO Q12 [facility] Last Admin: 08/21/17 08:41 Dose: 12.5 mg Dextrose (Dextrose 50% Inj) 0 ml IV STAT PRN; Protocol PRN Reason: Hypoglycemia Protocol Dextrose (Glutose 15) 0 gm PO ONCE PRN; Protocol PRN Reason: Hypoglycemia Protocol Diltiazem HCl (Cardizem) 30 mg PO QID [facility] Last Admin: 08/21/17 08:42 Dose: 30 mg Glucagon (Glucagen Diagnostic Kit) 0 mg IM STAT PRN; Protocol PRN Reason: Hypoglycemia Protocol Ampicillin Sodium/Sulbactam (Sodium 1.5 gm/ Sodium Chloride) 100 mls @ 100 mls/ hr IVPB Q6 [facility] PRN Reason: Protocol Last Admin: 08/21/17 09:11 Dose: 100 mls/hr Clindamycin Phosphate 600 mg/ (Dextrose) 54 mls @ 54 mls/hr IVPB Q12 [facility] PRN Reason: Protocol Last Admin: 08/21/17 08:42 Dose: 54 mls/hr Insulin Human Regular (Humulin R) 0 units SC ACHS [facility] PRN Reason: Protocol Last Admin: 08/21/17 08:39 Dose: 1 units Megestrol Acetate (Megace) 20 mg PO DAILY [facility] Last Admin: 08/21/17 08:42 Dose: 20 mg Memantine (Namenda) 5 mg PO BID [facility] Last Admin: 08/21/17 08:43 Dose: 5 mg Pantoprazole Sodium (Protonix Ec Tab) 40 mg PO BID [facility] Last Admin: 08/21/17 08:43 Dose: 40 mg Sitagliptin Phosphate (Januvia) 50 mg PO DAILY [facility] Last Admin: 08/21/17 08:39 Dose: 50 mg - Labs Labs: 08/21/17 05:50 08/21/17 05:50 PT 14.0 Seconds (9.8-13.1) H 08/13/17 04:20 INR 1.3 (0.9-1.2) H 08/13/17 04:20 APTT 36.4 Seconds (25.6-37.1) 08/13/17 04:20
--- NOTE | 2017-08-21 12:12 | CP.PCM.PCO ---
Physician Communication Note - Physician Communication Note Physician Communication Note: Per Dr. Santos, IV antibiotics x 5 more days
--- NOTE | 2017-08-21 13:43 | CP.PCM.DIS ---
Provider - Provider Date of Admission: 08/04/17 15:31 Attending physician: Kang Beck MD Time Spent in preparation of Discharge (in minutes): 15 Diagnosis - Discharge Diagnosis (1) Afib Status: Acute (2) Ascites Status: Acute (3) Dementia Status: Chronic (4) Elevated CA 19-9 level Status: Acute (5) Elevated CA-125 Status: Acute (6) Elevated CEA Status: Acute (7) NSTEMI (non-ST elevated myocardial infarction) Status: Acute (8) Pleural effusion Status: Acute Priority: High (9) UTI (urinary tract infection) Status: Acute Hospital Course - Lab Results Lab Results: Micro Results 08/14/17 13:45 Pleural Fluid Gram Stain - Final 08/14/17 13:45 Pleural Fluid Body Fluid Culture - Final No growth. 08/09/17 14:59 Urine,Clean Catch Urine Culture - Final Enterococcus Faecalis 08/06/17 00:00 Blood-Venous Blood Culture - Final NO GROWTH AFTER 5 DAYS 08/06/17 00:00 Blood-Venous Gram Stain - Final TEST NOT PERFORMED 08/06/17 00:15 Blood-Venous Blood Culture - Final NO GROWTH AFTER 5 DAYS 08/07/17 05:50 Axilla MRSA Culture (Admit) - Final MRSA NOT DETECTED 08/04/17 20:08 Naris MRSA Culture (Admit) - Final MRSA NOT DETECTED Most Recent Lab Values WBC 12.9 K/uL (4.8-10.8) H 08/21/17 05:50 RBC 3.93 Mil/uL (3.80-5.20) 08/21/17 05:50 Hgb 11.8 g/dL (12.0-16.0) L 08/21/17 05:50 Hct 36.2 % (34.0-47.0) 08/21/17 05:50 MCV 92.2 fl (81.0-99.0) 08/21/17 05:50 MCH 30.1 pg (27.0-31.0) 08/21/17 05:50 MCHC 32.6 g/dL (33.0-37.0) L 08/21/17 05:50 RDW 16.1 % (11.5-14.5) H 08/21/17 05:50 Plt Count 359 K/uL (130-400) 08/21/17 05:50 MPV 8.8 fl (7.2-11.7) 08/14/17 10:10 Neut % (Auto) 88.8 % (50.0-75.0) H 08/14/17 10:10 Lymph % (Auto) 4.0 % (20.0-40.0) L 08/14/17 10:10 [place] % (Auto) 6.8 % (0.0-10.0) 08/14/17 10:10 Eos % (Auto) 0.2 % (0.0-4.0) 08/14/17 10:10 Baso % (Auto) 0.2 % (0.0-2.0) 08/14/17 10:10 Neut # (Auto) 13.1 K/uL (1.8-7.0) H 08/14/17 10:10 Lymph # (Auto) 0.6 K/uL (1.0-4.3) L 08/14/17 10:10 [place] # (Auto) 1.0 K/uL (0.0-0.8) H 08/14/17 10:10 Eos # (Auto) 0.0 K/uL (0.0-0.7) 08/14/17 10:10 Baso # (Auto) 0.0 K/uL (0.0-0.2) 08/14/17 10:10 Neutrophils % (Manual) 87 % (42-75) H 08/13/17 04:20 Band Neutrophils % 2 % (0-2) 08/13/17 04:20 Lymphocytes % (Manual) 5 % (20-50) L 08/13/17 04:20 Monocytes % (Manual) 6 % (0-10) 08/13/17 04:20 Toxic Granulation Present 08/06/17 05:00 Platelet Estimate Normal (NORMAL) 08/13/17 04:20 Large Platelets Present 08/06/17 05:00 Hypochromasia (manual) Slight 08/04/17 12:55 Poikilocytosis (manual Slight 08/04/17 12:55 Anisocytosis (manual) Slight 08/13/17 04:20 Target Cells Slight 08/04/17 12:55 Tear Drop Cells Slight 08/13/17 04:20 Ovalocytes Slight 08/13/17 04:20 Stomatocytes Slight 08/04/17 12:55 [place] Cells Slight 08/13/17 04:20 Schistocytes Slight 08/13/17 04:20 PT 14.0 Seconds (9.8-13.1) H 08/13/17 04:20 INR 1.3 (0.9-1.2) H 08/13/17 04:20 APTT 36.4 Seconds (25.6-37.1) 08/13/17 04:20 Sodium 137 mmol/l (132-148) 08/21/17 05:50 Potassium 4.0 MMOL/L (3.6-5.0) 08/21/17 05:50 Chloride 100 mmol/L (98-107) 08/21/17 05:50 Carbon Dioxide 28 mmol/L (22-30) 08/21/17 05:50 Anion Gap 13 (10-20) 08/21/17 05:50 BUN 19 mg/dl (7-17) H 08/21/17 05:50 Creatinine 0.3 mg/dl (0.7-1.2) L 08/21/17 05:50 Est GFR ( Amer) > 60 08/21/17 05:50 Est GFR (Non-Af Amer) > 60 08/21/17 05:50 POC Glucose (mg/dL) 200 mg/dL (65-110) H 08/21/17 12:06 Random Glucose 151 mg/dL (65-105) H 08/21/17 05:50 Hemoglobin A1c 6.7 % (4.2-6.5) H 08/06/17 05:00 Serum Osmolality 290 mosm/kg (272-300) 08/06/17 17:18 Calcium 7.6 mg/dL (8.4-10.2) L 08/21/17 05:50 Total Bilirubin 1.1 mg/dl (0.2-1.3) 08/15/17 05:00 Direct Bilirubin 1.1 mg/ml (0.0-0.4) H 08/05/17 09:19 AST 44 U/L (14-36) H 08/15/17 05:00 ALT 65 U/L (9-52) H 08/15/17 05:00 Alkaline Phosphatase 211 U/L (38-126) H 08/15/17 05:00 Troponin I 0.0990 ng/mL (0.00-0.120) 08/07/17 04:25 NT-Pro-B Natriuret Pep 1670 pg/ml (0-900) H 08/07/17 12:10 Total Protein 4.4 G/DL (6.3-8.2) L 08/15/17 05:00 Albumin 1.9 g/dL (3.5-5.0) L 08/15/17 05:00 Globulin 2.5 gm/dL (2.2-3.9) 08/15/17 05:00 Albumin/Globulin Ratio 0.8 (1.0-2.1) L 08/15/17 05:00 Triglycerides 79 mg/DL (0-149) 08/06/17 05:00 Cholesterol 178 mg/dL (0-199) 08/06/17 05:00 LDL Cholesterol Direct 124 mg/dL (0-129) 08/06/17 05:00 HDL Cholesterol 32 MG/DL (30-70) 08/06/17 05:00 Alpha Fetoprotein 1.6 IU/mL (0.0-7.22) 08/11/17 06:50 Carcinoembryonic Ag 8.4 ng/mL (0-3.0) H 08/07/17 15:16 CA 19-9 Antigen 137 U/mL (0-37) H 08/06/17 05:00 CA 125 Antigen 135 U/mL (0-35) H 08/07/17 13:40 TSH 3rd Generation 2.57 mIU/ML (0.46-4.68) 08/07/17 00:30 Urine Color Yellow (YELLOW) 08/09/17 14:59 Urine Clarity Slighty-cloudy (Clear) 08/09/17 14:59 Urine pH 6.0 (5.0-8.0) 08/09/17 14:59 Ur Specific [place] 1.041 (1.003-1.030) H 08/09/17 14:59 Urine Protein Negative mg/dL (NEGATIVE) 08/09/17 14:59 Urine Glucose (UA) 150 mg/dL (Normal) 08/09/17 14:59 Urine Ketones Negative mg/dL (NEGATIVE) 08/09/17 14:59 Urine Blood Small (NEGATIVE) 08/09/17 14:59 Urine Nitrate Negative (NEGATIVE) 08/09/17 14:59 Urine Bilirubin Negative (NEGATIVE) 08/09/17 14:59 Urine Urobilinogen 0.2-1.0 mg/dL (0.2-1.0) 08/09/17 14:59 Ur Leukocyte Esterase Neg [place]ad/uL (Negative) 08/09/17 14:59 Urine RBC (Auto) 3 /hpf (0-3) 08/09/17 14:59 Urine Microscopic WBC 9 /hpf (0-5) H 08/09/17 14:59 Ur Squamous Epith Cells < 1 /hpf (0-5) 08/09/17 14:59 Urine Osmolality 644 mosm/kg (300-1000) 08/06/17 19:33 Ur Random Sodium 5 meq/L 08/06/17 19:33 Ur Random Potassium 13.1 mmol/L 08/06/17 19:33 Fluid Source Pleural/thoracentesi 08/14/17 14:17 Fluid Appearance Clear (CLEAR) 08/14/17 14:17 Fluid WBC 45.0 /mm3 (0.0-300.0) 08/14/17 14:17 Fluid RBC 19.0 /mm3 (0.0-0.0) H 08/14/17 14:17 Fluid Tot Cell Count 100 (0-0) H 08/14/17 14:17 Fluid Neutrophils 44.0 % (0-0) H 08/14/17 14:17 Fluid Lymphocytes 32.0 % (0-0) H 08/14/17 14:17 Fld Monocyte/Macrophag 24 % (0-0) H 08/14/17 14:17 Fluid Albumin 0.6 g/dL 08/12/17 14:17 Fluid Comment Yellow 08/14/17 14:17 Pleural Lipase 4.0 U/L (<10) 08/12/17 14:17 Stool Occult Blood Positive (NEGATIVE) H 08/13/17 13:50 Absolute Lymphs (Flow) 543 Cells/mcL (850-3900) L 08/13/17 04:20 % CD4 Cells 51 Percent (30-61) 08/13/17 04:20 Absolute CD4 Count 278 Cells/mcL (490-1740) L 08/13/17 04:20 T-Help/Suppress Ratio 3.19 Ratio (0.86-5.00) 08/13/17 04:20 % CD8 Cells 16 Percent (12-42) 08/13/17 04:20 Absolute CD8 Count 87 Cells/mcL (180-1170) L 08/13/17 04:20 T-Lymph Analys Comment See note 08/13/17 04:20 Hepatitis A IgM Ab Negative (NEGATIVE) 08/09/17 12:18 Hep Bs Antigen Negative (NEGATIVE) 08/09/17 12:18 Hepatitis C Antibody Non reactive (Non Reactive) 08/09/17 12:18 Hep C Ab Signal/Cutoff 0.01 Ratio (<1.0) 08/09/17 12:18 - Hospital Course Hospital Course: 77 y/o woman w/ pmh of dementia, HTN, and hyperlipidemia was admitted for progressive body weakness and noted to have rapid atrial fibrillation. Patient seen and evaluated in ED. Patient's afib was new event, seen b senior analyst developer and deemed poor candidate for oral anticoagulation, instead started on antiarrhythmic. Seen by pulmonology for dyspnea secondary to pleural effusion. Seen by ID for UTI and started on IV antibiotics. Seen by Heme/onc due to elevation of cancer markers in the blood. Patient had thoracocentesis which showed no malignant cells. Patient's family later reported that patient had breast cancer a few years back that was treated w/ chemotherapy. Patient seen by GI and had PEG placed due to poor PO intake. Patient now tolerating PO and receiving supplement calories via PEG. Patient had upper extremity U/S done due to edematous upper extremities but found negative for DVT. The patient reports feeling better and is able to go out of bed to chair w/ assistance. The patient has been seen, examined, and deemed medically fit for discharge to [facility] for closer care, physcial therapy, and maintenance of PEG. Discharge Exam - Head Exam Head Exam: NORMAL INSPECTION - Eye Exam Eye Exam: Normal appearance - ENT Exam ENT Exam: Mucous Membranes Moist - Neck Exam Neck exam: Full Rom - Respiratory Exam Respiratory Exam: Clear to PA & Lateral. absent: Accessory Muscle Use, Decreased Breath Sounds, Rales, Rhonchi, Wheezes - Cardiovascular Exam Cardiovascular Exam: REGULAR RHYTHM. absent: Tachycardia - GI/Abdominal Exam GI & Abdominal Exam: Normal Bowel Sounds, Soft. absent: Distended, Tenderness Additional comments: PEG in place LUQ, c/d/i, no erythema, no kinks - Extremities Exam Additional comments: no edema of the upper and lower extremities - Neurological Exam Neurological exam: Alert - Skin Skin Exam: Dry, Intact, Normal Color, Warm Discharge Plan - Discharge Medications Prescriptions: Ampicillin Sodium/Sulbactam Na [Ampicillin-Sulbactam 1.5 gm Vl] 1.5 gm IVPB Q6 # 20 vial Clindamycin [Cleocin] 600 mg IVPB Q12 #10 vial - Follow Up Plan Condition: FAIR Disposition: REHAB FACILITY/REHAB UNIT Instructions: Atrial Fibrillation (DC), Dementia (DC) Referrals: Navya Rodarte MD [Staff Provider] - Luis Dobbins MD [Family Provider] - Dickson Velázquez MD [Staff Provider] -
== END 2017-08-21 14:55 | DRG 281 ==
LOC: H.ER 12:35 → H.ERHOLD 15:31 → H.ICU/CCU 17:08 → H.TEL 08-07 06:23 → H.MEDSURG1 08-16 21:40
PROVIDERS: ADMIT Family Medicine; ATTEND Family Medicine
PROC: 3E0336Z Introduction of Nutritional Substance into Peripheral Vein, Percutaneous Approach (ICD-10-PCS; principal; 2017-08-11)
PROC: 0W993ZZ Drainage of Right Pleural Cavity, Percutaneous Approach (ICD-10-PCS; 2017-08-14)
PROC: 0DB98ZX Excision of Duodenum, Via Natural or Artificial Opening Endoscopic, Diagnostic (ICD-10-PCS; 2017-08-16)
PROC: 0DB68ZX Excision of Stomach, Via Natural or Artificial Opening Endoscopic, Diagnostic (ICD-10-PCS; 2017-08-16)
PROC: 0DH63UZ Insertion of Feeding Device into Stomach, Percutaneous Approach (ICD-10-PCS; 2017-08-16)
PROC: 3E0G76Z Introduction of Nutritional Substance into Upper GI, Via Natural or Artificial Opening (ICD-10-PCS; 2017-08-16)
DX: I21.4 Non-ST elevation (NSTEMI) myocardial infarction (principal); N17.9 Acute kidney failure, unspecified; E87.1 Hypo-osmolality and hyponatremia; R18.8 Other ascites; J90 Pleural effusion, not elsewhere classified; J98.11 Atelectasis; N39.0 Urinary tract infection, site not specified; E46 Unspecified protein-calorie malnutrition; R57.9 Shock, unspecified; E86.0 Dehydration; E11.65 Type 2 diabetes mellitus with hyperglycemia; E78.00 Pure hypercholesterolemia, unspecified; I48.91 Unspecified atrial fibrillation; F03.90 Unspecified dementia, unspecified severity, without behavioral disturbance, psychotic disturbance, mood disturbance, and anxiety; R79.89 Other specified abnormal findings of blood chemistry; E87.6 Hypokalemia; F32.9 Major depressive disorder, single episode, unspecified; Z85.3 Personal history of malignant neoplasm of breast; B95.2 Enterococcus as the cause of diseases classified elsewhere; R97.0 Elevated carcinoembryonic antigen [CEA]; R97.1 Elevated cancer antigen 125 [CA 125]; E78.5 Hyperlipidemia, unspecified; K20.9 Esophagitis, unspecified; I10 Essential (primary) hypertension; Z92.21 Personal history of antineoplastic chemotherapy; I95.2 Hypotension due to drugs; T44.7X5A Adverse effect of beta-adrenoreceptor antagonists, initial encounter; T46.1X5A Adverse effect of calcium-channel blockers, initial encounter; K25.9 Gastric ulcer, unspecified as acute or chronic, without hemorrhage or perforation; K26.9 Duodenal ulcer, unspecified as acute or chronic, without hemorrhage or perforation; K44.9 Diaphragmatic hernia without obstruction or gangrene; K29.80 Duodenitis without bleeding; K29.70 Gastritis, unspecified, without bleeding